=== PATIENT | male | born 1950 | race Caucasian/White ===

== ENCOUNTER 2016-09-13 12:46 | Inpatient (IN) | payer MEDICARE, OTHER ==
[~2016-09-13] VITALS: Ht 182.9 cm; Wt 79.3 kg
[2016-09-13] VITALS (10 sets, daily range): BP systolic 117–131; BP diastolic 61–78; PULSE 58–68; RESP 16–22; O2SAT 94–99
[~2016-09-13 12:46] MED LIST: ALBU6.7H INH; AMIO200T PO; CARV6.252 PO; CHOL10008 PO; FLUO20CA25 PO; FURO40TA4 PO; LISI10TA PO; POTA8TAB8 PO; PRAV40TA PO; ROPI0.5T2 PO; SYMINH INHALATION; VITA-272 PO
--- NOTE | 2016-09-13 12:49 | ED.REPORT ---
HPI-Trauma Multiple Date of Service Sep 13, 2016 ED Provider: The patient is a 65 year old male with history of end stage renal disease ( dialyzes MWF), congestive heart failure, COPD, anemia, hyperlipidemia, hypertension, and s/p pacemaker/defibrillator, who presents to the emergency department by EMS after he had a ground level fall. The patient states he was getting back into his car and felt lightheaded. The next thing he remembers is waking up on the ground with people around him. At this time he complains of lightheadedness and nausea. He is currently on Warfarin. He denies chest pain, shortness of breath, numbness, tingling, weakness, headache, vision changes, bladder/bowel incontinence. He denies history of seizures. Nursing Notes Stated Complaint: FALL Nursing Notes Reviewed: Yes Allergies: Uncoded Allergies: CHLORAPREP (Adverse Reaction, Intermediate, itching, 07/23/16) Scheduled Amiodarone (Amiodarone) 200 Mg Tablet 200 MG PO DAILY Budesonide/Formoterol 160-4.5 mcg Inh (Symbicort 160-4.5 mcg Inh) 120 Puff Inhaler 2 PUFF INHALATION BID Carvedilol (Carvedilol) 6.25 Mg Tablet 6.25 MG PO BID Cholecalciferol (Vitamin D3) (Vitamin D3) 1,000 Unit Tab.chew 1,000 UNIT PO DAILY Fluoxetine (Fluoxetine) 20 Mg Capsule 20 MG PO DAILY Furosemide (Furosemide) 40 Mg Tablet 40 MG PO DAILY Lisinopril (Lisinopril) 10 Mg Tablet 10 MG PO DAILY Potassium Chloride ER (Potassium Chloride ER) 8 Meq Tablet 8 MEQ PO DAILY TAKE WITH FOOD Pravastatin (Pravastatin) 40 Mg Tablet 40 MG PO DAILY Ropinirole (Ropinirole) 0.5 Mg Tablet 0.5 MG PO TID Vitamin D3/Vitamin K2 (Mk4) (K2 Plus D3 Tablet) 1,000 Unit-100 Mcg Tablet 1 EACH PO DAILY Scheduled PRN Albuterol Sulfate (Proventil HFA Inhaler) 6.7 Gm Hfa.aer.ad 2 PUFF INH Q4 PRN PRN For Shortness of Breath General Time Seen by Provider: 12:56 Chief Complaint Other (fall) Hx Obtained From: Patient, EMS Arrived By: Ambulance Onset Occurred: 1 - 4 hours ago Symptom Duration: Since onset Progression Since Onset: Constant Quality: Painful Severity: Current: Mild Severity: Maximum: Moderate Recent Healthcare: No recent doctor visit, No recent hospitalization Similar Sx Previous: No Past Medical History Past Medical History Chronic obstructive pulmonary disease. Nicotine dependence, active with cigarette smoking. Congestive heart failure, chronic, systolic dysfunction. Echo (04/05/12): LVEF 20-25% with severe global hypokinesis, mild to moderate mitral regurgitation and mild tricuspid regurgitation. Nonischemic cardiomyopathy Recent admit for complete heart block, now s/p AICF 11/2014 Chronic kidney disease stage 5, on hemodialysis Renal US (12/21/09): Right kidney measuring 8.3 cm with renal cortex thinning. Moderate to prominent hydronephrosis. Left kidney measuring 11.2 cm, showing no evidence of hydronephrosis or nephrolithiasis. Anemia due to renal failure. Hyperlipidemia. Hypertension. Past Surgical History AV fistula AICD Appendectomy Tonsillectomy Hydrocele repair Family History Noncontributory Smoking History Former Smoker, Smoker Current Status UNK Social History Other Social History: Local resident Ambulatory Status Independent Review of Systems Respiratory: Denies: Shortness of breath Cardiovascular: Denies: Chest pain GI: Reports: Nausea Neurologic: Reports: Change LOC, Lightheaded, Syncope, Denies: Bladder dysfunction, Bowel dysfunction, Focal weakness, Headache, Numbness Complete sys rev & neg: except as marked. Physical Exam Initial Vital Signs Vital Signs (First) Date Time Temp Pulse Resp B/P Pulse Ox O2 Delivery O2 Flow Rate FiO2 09/13/16 12:58 35.8 62 16 127/76 97 Room Air Initial VS: Reviewed Extremities: Vascular intact, Neuro intact Skin: Warm, Dry, No cyanosis Psychiatric: Mood/affect normal, Behavior normal, Normal thought content General/Constitutional: Awake, Alert, Cooperative Head / Eyes: Normocephalic, PERRL, EOMI There is a hematoma measuring about 7x7 cm about his left occipital scalp. There is an overlying abrasion with dried blood, no active bleeding. Neck: Supple, Full range of motion, No swelling, Non-tender, No midline vertebral tend Respiratory / Chest: Atraumatic, Breath sounds NL, Breath sounds = bilat, No respiratory distress, No rales, No rhonchi, No wheezing, No stridor, No chest tenderness, No chest wall deformity, No crepitus Cardiovascular: Heart rate NL, Regular rhythm, Heart sounds NL, No gallop, No murmurs, No rubs, Cap refill not delayed, Peripheral circulation NL Abdomen: Atraumatic, Soft, Non-tender, No guarding, No rebound, No distention Back: No midline vertebral tend Neurologic: Oriented X3, Speech NL, No motor deficits, No sensory deficits, Cerebellar NL, Memory NL 5/5 strength to both upper and lower extremities. No pronator drift. ENT: Airway patent, Mucous membranes moist Bite to the inside of his lip. Dried blood in mouth. No acute dental trauma. Dentures in place. Upper Extremity / MS: No deformity, Neurologic intact, Vascular intact Dialysis fistula in left forearm with a good palpable thrill. There is no overlying erythema, redness, warmth. He has a skin tear overlying his left elbow. Full range of motion. Lower Extremity / Pelvis / MS: Atraumatic, Inspection NL, Full range of motion , No swelling, Non-tender, No deformity, Neurologic intact, Vascular intact Interpretation & Diagnostics Lab Results Interpretation Result Diagram: 09/13/16 1251 09/13/16 1251 Test 09/13/16 12:51 09/13/16 13:26 White Blood Count 9.1th/mm3 (3.8-10.1) Red Blood Count 3.82mil/mm3 (4.40-5.80) Hemoglobin 14.1g/dL (13.8-17.2) Hematocrit 41.6% (41.0-50.0) Mean Corpuscular Volume 108.9fL (81-100) Mean Corpuscular Hemoglobin 36.9pg (27.0-35.0) Mean Corpuscular Hemoglobin Concent 33.9% (32.0-37.0) Red Cell Distribution Width 14.9% (12.3-15.4) Platelet Count 104bil/L (150-400) Neutrophils (%) (Auto) 76.3% (40-74) Lymphocytes (%) (Auto) 11.5% (14-46) Monocytes (%) (Auto) 7.5% (4-12) Eosinophils (%) (Auto) 3.5% (0-5) Basophils (%) (Auto) 0.9% (0-3) Prothrombin Time 27.9sec (8.1-12.5) Prothromb Time International Ratio 2.56ratio Sodium Level 134mEq/L (134-144) Potassium Level 4.5mEq/L (3.5-5.2) Chloride Level 91mEq/L (97-108) Carbon Dioxide Level 26mmol/L (18-29) Blood Urea Nitrogen 48mg/dL (8-27) Creatinine 5.35mg/dL (0.76-1.27) Estimat Glomerular Filtration Rate 11mL/min (>59) Glucose Level 80mg/dL (60-99) Calcium Level 9.6mg/dL (8.5-10.1) Magnesium Level 1.9mg/dL (1.6-2.6) Total Bilirubin 1.2mg/dL (0.0-1.2) Aspartate Amino Transf (AST/SGOT) 24U/L (0-50) Alanine Aminotransferase (ALT/SGPT) 13U/L (0-44) Alkaline Phosphatase 113U/L (25-160) Troponin T 0.080ug/L (0.0-0.011) Pro-B-Type Natriuretic Peptide 36415kt/mL (0-376) Total Protein 7.9g/dL (6.4-8.4) Albumin 4.0g/dL (3.4-5.0) Lactic Acid Level 1.1mmol/L (0.4-2.0) ECG Interpretation ECG Interpretation: Atrial sensed ventricular paced complexed at a rate of 58 bpm When compared to prior EKG taken on 12/07/2014 there are no acute changes present, he remains ventricular paced Time: 13:18 Interpreted by: ED physician X-Ray Chest Interpretation Chest Xray Interpretation: IMPRESSION: 1. Possible early right upper lobe pneumonia. 2. Moderate cardiomegaly, without pulmonary edema to suggest congestive heart failure. Dictated by: Robinson Christy M.D. on 09/13/2016 at 13:34 Interpretation / Wet Read by: Interpret - Radiologist CT Head Interpretation IMPRESSION: 1. No acute intracranial abnormalities. Mild cerebral volume loss for age. 2. Left posterior parietal scalp soft tissue swelling. 3. Scattered extracranial intravenous gas bilaterally as well as within the right cavernous sinus, presumably from intravenous access. Dictated by: Robinson Christy M.D. on 09/13/2016 at 13:52 Study: Head CT no contrast Interpretation / Wet Read by: Interpret - Radiologist CT C-Spine Interpretation IMPRESSION: 1. No acute bony injuries of the cervical and upper thoracic spine from the foramen magnum to the T4 level. 2. Scattered right supraclavicular and right neck intravenous gas, presumably from recent intravenous access. Dictated by: Robinson Christy M.D. on 09/13/2016 at 13:44 Study type: CT no contrast Interpretation / Wet Read by: Interpret - Radiologist Re-Eval/Medical Decision Med Decision/Clinical Course The patient is a 65 year old male with history of end stage renal disease ( dialyzes MWF), congestive heart failure, COPD, anemia, hyperlipidemia, hypertension, and s/p pacemaker/defibrillator, who presents to the emergency department by EMS after he had a ground level fall after syncopal event resulting in striking his head. Upon arrival the patient is afebrile stable vital signs. He has a GCS of 15 and he is answering questions appropriately. Neurologic examination is nonlateralizing. Treated with Zofran and 500 mL fluid bolus, given TDAP is superficial abrasions. CT scan of the head demonstrated no evidence of acute intracranial hemorrhage. CT scan of cervical spine tenderness. No acute fractures. Chest x-ray demonstrated possible right upper lobe pneumonia though he does not present with symptoms suggestive thereof. Otherwise he was without pneumothorax or evidence of acute cardiopulmonary process. Level for studies were reviewed as below: CBC no leukocytosis, hct 41.6, INR 2.56, lactic acid 1.1, BUN 48, creatinine 5.35 - expected given known ESRD, no significant electrolyte abnormality, troponin 0.08, BNP 30155 I am reassured at this point that the patient does not have any intracranial hemorrhage given head trauma in the setting of being therapeutic on Coumadin. That being said, he presents with a syncopal event prior to his head injury without any significant presyncopal symptoms. This is somewhat concerning for acute cardiac arrhythmia. EKG was obtained and reviewed by myself as documented above and demonstrated paced atrioventricular complexes. He does report a history of AICD and the possibility of acute cardiac process remains. Positive troponin is difficult to interpret in the setting of his underlying renal failure. The presentation is not suggestive of seizure. I do not see any signs of significant electrolyte abnormality. He is on dialysis and appears slightly dehydrated and was treated with a 500 mL saline bolus. That being said, I cannot attribute his syncopal event dehydration at this time. Patient was discussed with admitting hospitalist and admitted for further workup and management of his acute syncopal event. He was transferred in stable condition. Skin tear of left elbow was completed and sterile nonadherent dressings were placed. Source of Hx: Old records, EMS Re-Evaluation/Progress : Time of Eval: 13:45 Re-Evaluation/Progress Note: Discussed plan for admission. All questions were addressed. Consultation : Referral / Consult Name: Neda Gonzales MD Consulted With: Hospitalist Requested Call at: 13:45 Call Returned at: 14:12 Metal Sorter: Will see patient, Agrees with eval, Agrees with plan, Accepts admit Counseled Regarding: Diagnosis, Lab results, Need for admission Discharge & Departure Impression: Primary Impression: Fall Encounter type: initial encounter Qualified Code: W19.XXXA - Unspecified fall, initial encounter Additional Impressions: Syncope Syncope type: unspecified Qualified Code: R55 - Syncope and collapse End stage renal disease Elevated brain natriuretic peptide (BNP) level Elevated troponin I level Skin tear Disposition: ADMITTED TO HOSPITAL Discharge Condition All VS Reviewed: Yes Condition: Stable Referrals: [facility] (PCP) Crit Care Except Billable Proc Time Spent: 75-104 minutes Services Performed: Patient management by me, Time spent at bedside, Reviewing test results, Reviewing imaging, Discussing patient care, Documentation in record, Time with fam/surrogate Scribe Attestation Portions of this note were transcribed by Jen Newman. I, Dr. Ayala personally performed the history, physical exam and medical decision-making; I reviewed and confirmed the accuracy of the information in the transcribed note. Signed by: Marimar Caicedo, 09/12/2015 and 1435. copies to: [facility] Sherwin Ayala MD Sep 13, 2016 12:49 Jen Newman Sep 13, 2016 13:04
[2016-09-13] MEDS ORDERED: Ondansetron 2 mg/mL 2 mL Inj IVPUSH ONE (13:05)
[2016-09-13] MEDS ORDERED: 0.9% Sodium Chloride 500 ML IV ONE (13:05)
[2016-09-13 13:14] LABS: BASOPHILS % (AUTO) 0.9 % (0-3); EOSINOPHILS % (AUTO) 3.5 % (0-5); MONOCYTES % (AUTO) 7.5 % (4-12); Mean Corpuscular Hemoglobin 36.9 pg (27.0-35.0); Mean Corpuscular Volume 108.9 fL (81-100); NEUTROPHILS % (AUTO) 76.3 % (40-74); Platelet Count 104 bil/L (150-400)
[2016-09-13] MEDS ORDERED: Lidocaine-Epi-Tetracaine Solution 3 mL Syringe TOPICAL ONE (13:30)
[2016-09-13] MEDS ORDERED: TdaP Vaccine 0.5 mL Inj IM ONE (13:35)
--- NOTE | 2016-09-13 13:37 | DRSVH ---
PROCEDURE: X-RAY CHEST ONE VIEW, PORTABLE ([id number]) INDICATIONS: 65 year-old male with syncope and fall. TECHNIQUE: One view of the chest was acquired. COMPARISON: [facility], CR, XR CHEST 2VW, 12/31/2015, 12:54. [facility], CR, CHEST 2VW, 11/16/2014, 7:49. [facility], CR, CHEST 1VW (PORTABLE), 11/15/2014, 17:25. FINDINGS: Surgical changes and devices: Right chest wall dual biventricular pacer/ICD is again noted. Lungs and pleura: No pleural effusions or pneumothorax. Lungs are clear, except for patchy opacity just superior to the right minor fissure. Mediastinum: Mediastinal contours appear normal. Moderate cardiomegaly is unchanged. Bones and chest wall: No suspicious bony lesions. Overlying soft tissues appear unremarkable. IMPRESSION: 1. Possible early right upper lobe pneumonia. 2. Moderate cardiomegaly, without pulmonary edema to suggest congestive heart failure. Dictated by: Robinson Christy M.D. on 09/13/2016 at 13:34 Approved by: Robinson Christy M.D. on 09/13/2016 at 13:36
[2016-09-13 13:46] LABS: INR 2.56 ratio
--- NOTE | 2016-09-13 13:51 | DRSVH ---
PROCEDURE: CT CERVICAL SPINE WITHOUT CONTRAST ([id number]) INDICATIONS: 65-year-old male with ground level fall on Coumadin. TECHNIQUE: Noncontrast 3 mm thick sections acquired from the skull base to the T4 level. Sagittal and coronal r eformats were then constructed. For radiation dose reduction, the following was used: automated exp osure control, adjustment of mA and/or kV according to patient size. COMPARISON: None. FINDINGS: Image quality: Excellent. Bones: No fractures or dislocations. There is significant C5-C6 disc degeneration. Visualized super ior ribs are intact. Soft tissues: There is scattered intravenous gas within the right neck and supraclavicular region. P revertebral soft tissues are normal in thickness. No paravertebral hematomas. There is bilateral ca rotid bifurcation and vertebral artery atherosclerosis. No apical pneumothoraces. IMPRESSION: 1. No acute bony injuries of the cervical and upper thoracic spine from the foramen magnum to the T4 level. 2. Scattered right supraclavicular and right neck intravenous gas, presumably from recent intravenous access. Dictated by: Robinson Christy M.D. on 09/13/2016 at 13:44 Approved by: Robinson Christy M.D. on 09/13/2016 at 13:50
--- NOTE | 2016-09-13 13:57 | DRSVH ---
PROCEDURE: CT BRAIN WITHOUT CONTRAST ([id number]) INDICATIONS: 65 year-old male with head trauma on Coumadin. TECHNIQUE: Noncontrast 4.5 mm thick angled axial sections acquired from the foramen magnum to the vertex, with c oronal reformats. COMPARISON: None. FINDINGS: Image quality: Excellent. CSF spaces: Basal cisterns are patent. No extra-axial fluid collections. Ventricles are normal in size and shape. Brain: No midline shift. No intracranial masses or hemorrhage. There is mild cerebral volume loss for age. Bo-white matter interface is normal. There is intracranial internal carotid artery atheros clerosis. Skull and face: Calvarium and visualized facial bones are intact, without suspicious lesions. Multif ocal extracranial soft tissue gas is noted. There is left posterior parietal scalp soft tissue swelli ng. Sinuses: Visualized sinuses and mastoids are clear. IMPRESSION: 1. No acute intracranial abnormalities. Mild cerebral volume loss for age. 2. Left posterior parietal scalp soft tissue swelling. 3. Scattered extracranial intravenous gas bilaterally as well as within the right cavernous sinus, pr esumably from intravenous access. Dictated by: Robinson Christy M.D. on 09/13/2016 at 13:52 Approved by: Robinson Christy M.D. on 09/13/2016 at 13:56
[2016-09-13 14:00] LABS: Magnesium 1.9 mg/dL (1.6-2.6)
[2016-09-13 14:14] LABS: TROPONIN T 0.08 ug/L (0.0-0.011)
--- NOTE | 2016-09-13 14:38 | DRSVH ---
PROCEDURE: X-RAY LEFT SHOULDER, MINIMUM TWO VIEWS ([id number]) INDICATIONS: 65 year-old male with left shoulder pain after ground level fall. TECHNIQUE: 2 views of the shoulder were acquired. COMPARISON: None. FINDINGS: Bones: No fractures or dislocations. There is acromioclavicular joint degeneration. No suspicious b jazmyn lesions. Visualized ribs appear intact. Soft tissues: No suspicious soft tissue calcifications. IMPRESSION: No acute bony injuries of the left shoulder. Dictated by: Robinson Christy M.D. on 09/13/2016 at 14:36 Approved by: Robinson Christy M.D. on 09/13/2016 at 14:37
--- NOTE | 2016-09-13 14:45 | PCM.HPMED ---
Subjective Date of Service Sep 13, 2016 Primary Provider: Admitting Physician: Primary Care Physician: [facility] Attending Physician: Chief Complaint: Past out HISTORY was OBTAINED FROM PATIENT / MEDITECH NOTES History of present illness 65-year-old male, hemodialysis MWF/pacer/ICD/Coumadin use, was walking to his car, lightheaded, then he woke up from the ground with people surrounding him. no prior seizure/incontinence. last syncopal episode 05/09/2016 determined to have ICD fired at that time w/ change in coreg w/ Dr. Velez. He Saw Rosie 2 weeks ago w new coumadin for Afib. if he misses HD, he gets pulmonary fluid overload. he is on amoxicillin x 2nd 10day course -started 1-2 days ago, per license distributor s/ p toe amputation 1 month ago. in the ER 127/76, 62, 97% room air, T, 35.8 , weight 80.45, 500 mL saline, c/o nausea/lightheadness Review of Systems - none of the following - F/C/sick contact // SMITH /paresthesia / sob / cough / cp / acid reflux / n/v/diarrhea / / change in voiding(baseline minimal output) / yeast infections / rash ambulates Intermittent leg edema bruising sinus congestion FAMILY HX no MD SOCIAL HX smoker MEDICATIONS Scheduled Amiodarone (Amiodarone) 200 Mg Tablet 200 MG PO DAILY Budesonide/Formoterol 160-4.5 mcg Inh (Symbicort 160-4.5 mcg Inh) 120 Puff Inhaler 2 PUFF INHALATION BID Carvedilol (Carvedilol) 6.25 Mg Tablet 6.25 MG PO BID Cholecalciferol (Vitamin D3) (Vitamin D3) 1,000 Unit Tab.chew 1,000 UNIT PO DAILY Fluoxetine (Fluoxetine) 20 Mg Capsule 20 MG PO DAILY Furosemide (Furosemide) 40 Mg Tablet 40 MG PO DAILY Lisinopril (Lisinopril) 10 Mg Tablet 10 MG PO DAILY Potassium Chloride ER (Potassium Chloride ER) 8 Meq Tablet 8 MEQ PO DAILY TAKE WITH FOOD Pravastatin (Pravastatin) 40 Mg Tablet 40 MG PO DAILY Ropinirole (Ropinirole) 0.5 Mg Tablet 0.5 MG PO TID Vitamin D3/Vitamin K2 (Mk4) (K2 Plus D3 Tablet) 1,000 Unit-100 Mcg Tablet 1 EACH PO DAILY coumadin Scheduled PRN Albuterol Sulfate (Proventil HFA Inhaler) 6.7 Gm Hfa.aer.ad 2 PUFF INH Q4 PRN PRN For Shortness of Breath Past Medical/Surgical HX Sinus congestion Dizziness End-stage renal disease CHF, echo 2015 EF 20%, biventricular AICD 4 2014, hypertension, dyslipidemia, with severe global hypokinesis, mild to moderate mitral regurgitation and mild tricuspid regurgitation. Nonischemic cardiomyopathy Distal abdominal aortic aneurysm since 2009 COPD/ pulmonary embolism GERD UTI/BPH anemia Arthritis/osteomyelitis Depression/anxiety Appendectomy/hydrocelectomy/tonsillectomy/amputation toe AVfistula Allergies Coded Allergies: chlorhexidine (Verified Allergy, Mild, ITCHING, 09/13/16) PMH Social History Hx Alcohol Use: Yes (seldom) Hx Substance Use: No Hx Tobacco Use: Yes Smoking Status: Former Smoker, Smoker Current Status UNK Exam Vital Signs Vital Sign - Last Date Time Temp Pulse Resp B/P Pulse Ox O2 Delivery O2 Flow Rate FiO2 09/13/16 13:46 58 17 117/73 97 Room Air 09/13/16 12:58 35.8 Lab and Diagnostics Labs Exam on admission on NAD A and O x 3 mood affect WNL NC/AT no icterus no injected eyes EOMI PERRL /no pharyngeal lesions/ no oral lesions / hearing intact Supple neck CTAB equal chest rise / no accessory muscle use / speaks in full sentences / no rrw RRR S1 S2 / no mrg / 2+ radial pulses Soft nt nd + BS no hepatosplenomegaly No edema no cyanosis no ecchymosis of lower extremities No rash / no jaundice MAEmultiple areas of excoritaiont from fall left AV fistual EKG asensed v paced 58 <<< 12/2014 HR 82 Trop 0.08 BNP 81276 ( >60k 01/2016) UA pending LFT normla INR 2.6 Imaging PROCEDURE: CT BRAIN WITHOUT CONTRAST ([id number]) INDICATIONS: 65 year-old male with head trauma on Coumadin. TECHNIQUE: Noncontrast 4.5 mm thick angled axial sections acquired from the foramen magnum to the vertex, with coronal reformats. COMPARISON: None. FINDINGS: Image quality: Excellent. CSF spaces: Basal cisterns are patent. No extra-axial fluid collections. Ventricles are normal in size and shape. Brain: No midline shift. No intracranial masses or hemorrhage. There is mild cerebral volume loss for age. Bo-white matter interface is normal. There is intracranial internal carotid artery atherosclerosis. Skull and face: Calvarium and visualized facial bones are intact, without suspicious lesions. Multifocal extracranial soft tissue gas is noted. There is left posterior parietal scalp soft tissue swelling. Sinuses: Visualized sinuses and mastoids are clear. IMPRESSION: 1. No acute intracranial abnormalities. Mild cerebral volume loss for age. 2. Left posterior parietal scalp soft tissue swelling. 3. Scattered extracranial intravenous gas bilaterally as well as within the right cavernous sinus, presumably from intravenous access. PROCEDURE: CT CERVICAL SPINE WITHOUT CONTRAST ([id number]) INDICATIONS: 65-year-old male with ground level fall on Coumadin. TECHNIQUE: Noncontrast 3 mm thick sections acquired from the skull base to the T4 level. Sagittal and coronal reformats were then constructed. For radiation dose reduction, the following was used: automated exposure control, adjustment of mA and/or kV according to patient size. COMPARISON: None. FINDINGS: Image quality: Excellent. Bones: No fractures or dislocations. There is significant C5-C6 disc degeneration. Visualized superior ribs are intact. Soft tissues: There is scattered intravenous gas within the right neck and supraclavicular region. Prevertebral soft tissues are normal in thickness. No paravertebral hematomas. There is bilateral carotid bifurcation and vertebral artery atherosclerosis. No apical pneumothoraces. IMPRESSION: 1. No acute bony injuries of the cervical and upper thoracic spine from the foramen magnum to the T4 level. 2. Scattered right supraclavicular and right neck intravenous gas, presumably from recent intravenous access. PROCEDURE: X-RAY CHEST ONE VIEW, PORTABLE ([id number]) INDICATIONS: 65 year-old male with syncope and fall. TECHNIQUE: One view of the chest was acquired. COMPARISON: [facility], CR, XR CHEST 2VW, 12/31/2015, 12:54. [facility], CR, CHEST 2VW, 11/16/2014, 7:49. [facility] , , CHEST 1VW (PORTABLE), 11/15/2014, 17:25. FINDINGS: Surgical changes and devices: Right chest wall dual biventricular pacer/ICD is again noted. Lungs and pleura: No pleural effusions or pneumothorax. Lungs are clear, except for patchy opacity just superior to the right minor fissure. Mediastinum: Mediastinal contours appear normal. Moderate cardiomegaly is unchanged. Bones and chest wall: No suspicious bony lesions. Overlying soft tissues appear unremarkable. IMPRESSION: 1. Possible early right upper lobe pneumonia. 2. Moderate cardiomegaly, without pulmonary edema to suggest congestive heart failure. Result Diagram: 09/13/16 1251 09/13/16 1251 Assessment & Plan Active issues and reason for admission Syncope, found down, left shift, previously assoicated w/ AICD firing -- tsh.cortisol pending -- Dr. Francois - AICD rep to interogate -- consider echo, pending orthostatics, serial trop --UA pending ESRD --pending HD tomorrow, placed on Dr. Cornelius's list macrocytosis --monitor CXR RUL finding, treating as CAP along w/ toe preventive antibiotic coverage --IS/duoneb x 1 day scheduled rocephine instead of augmentin --add flonase --pending nebulzier for home [facility] no clinical significant of extra cranial/neck air on CT, discussed w/ radiologist Chronic issues known prior to admission, present on admission chronic afib Sinus congestion Dizziness End-stage renal disease CHF, echo 6 2015 EF 20%, biventricular AICD 4 2014, hypertension, dyslipidemia, with severe global hypokinesis, mild to moderate mitral regurgitation and mild tricuspid regurgitation. Nonischemic cardiomyopathy Distal abdominal aortic aneurysm since 2009 COPD/ pulmonary embolism - patient denies ever having PE/DVT GERD UTI/BPH Arthritis/osteomyelitis Depression/anxiety Appendectomy/hydrocelectomy/tonsillectomy/amputation toe AVfistula anemia --INR, coumadin per pharm Diet cardiac DVT prophylaxis coumadin Code full Disposition OBS status Assessment and plan were discussed with patient Neda Gonzales MD Sep 13, 2016 14:45
[2016-09-13] MEDS ORDERED: Albuterol-Ipratropium 3 mL Inhalation Solution NEB PRN (15:15)
--- NOTE | 2016-09-13 18:17 | NUR ---
Admit: Patient [place] [facility] [place] @ approx 1630. Patient ambulated to bed. Unsteady gait and weak. Patient alert and oriented. Denies pain. Telemetry placed, surveillance system monitor notified, patient is V Paced in the 60s. Oriented to room and call light system. Bed in low and locked position, bed rails up x 2, yellow non-skid socks on. Encouraged patient to call for assistance OOB. Patient agreed. Medication Reconciliation not completed as patient does not remember all of medications and dosages. [facility] Asked Policy Writer Sales to fax request to get list of current medications from [facility]. During admit patient states he had Advance Directive however there is no one that can bring in a copy.
[2016-09-13] MEDS ORDERED: Amiodarone 150 mg/100 mL D5W 150 MG in IV Premix 1 EACH IV ONE (19:45)
--- NOTE | 2016-09-13 20:09 | PCM.PHAPRO ---
Progress Requesting Provider: Tyesha Francois MD Past out HISTORY was OBTAINED FROM PATIENT / MEDITECH NOTES History of present illness 65-year-old male, hemodialysis MWF/pacer/ICD/Coumadin use, was walking to his car, lightheaded, then he woke up from the ground with people surrounding him. no prior seizure/incontinence. last syncopal episode 05/09/2016 determined to have ICD fired at that time w/ change in coreg w/ Dr. Velez. He Saw Rosie 2 weeks ago w new coumadin for Afib. if he misses HD, he gets pulmonary fluid overload. 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 in the ER 127/76, 62, 97% room air, T, 35.8 , weight 80.45, 500 mL saline, c/o nausea/lightheadness Review of Systems - none of the following - F/C/sick contact // SMITH /paresthesia / sob / cough / cp / acid reflux / n/v/diarrhea / / change in voiding(baseline minimal output) / yeast infections / rash ambulates Intermittent leg edema bruising sinus congestion FAMILY HX no CA SOCIAL HX smoker MEDICATIONS Scheduled Amiodarone (Amiodarone) 200 Mg Tablet 200 MG PO DAILY Budesonide/Formoterol 160-4.5 mcg Inh (Symbicort 160-4.5 mcg Inh) 120 Puff Inhaler 2 PUFF INHALATION BID Carvedilol (Carvedilol) 6.25 Mg Tablet 6.25 MG PO BID Cholecalciferol (Vitamin D3) (Vitamin D3) 1,000 Unit Tab.chew 1,000 UNIT PO DAILY Fluoxetine (Fluoxetine) 20 Mg Capsule 20 MG PO DAILY Furosemide (Furosemide) 40 Mg Tablet 40 MG PO DAILY Lisinopril (Lisinopril) 10 Mg Tablet 10 MG PO DAILY Potassium Chloride ER (Potassium Chloride ER) 8 Meq Tablet 8 MEQ PO DAILY TAKE WITH FOOD Pravastatin (Pravastatin) 40 Mg Tablet 40 MG PO DAILY Ropinirole (Ropinirole) 0.5 Mg Tablet 0.5 MG PO TID Vitamin D3/Vitamin K2 (Mk4) (K2 Plus D3 Tablet) 1,000 Unit-100 Mcg Tablet 1 EACH PO DAILY coumadin Scheduled PRN Albuterol Sulfate (Proventil HFA Inhaler) 6.7 Gm Hfa.aer.ad 2 PUFF INH Q4 PRN PRN For Shortness of Breath Past Medical/Surgical HX Sinus congestion Dizziness End-stage renal disease CHF, echo 6 2015 EF 20%, biventricular AICD 4 2014, hypertension, dyslipidemia, with severe global hypokinesis, mild to moderate mitral regurgitation and mild tricuspid regurgitation. Nonischemic cardiomyopathy Distal abdominal aortic aneurysm since 2009 COPD/ pulmonary embolism GERD UTI/BPH anemia Arthritis/osteomyelitis Depression/anxiety Appendectomy/hydrocelectomy/tonsillectomy/amputation toe AVfistula Warfarin dosing per pharmacy for A-Fib with goal INR 2-3. INR today is 2.56 I was unable to determine the patient's home warfarin dose from med rec/MD dictation or the external med viewer. The [facility] pharmacist tomorrow will contact the patient's pharmacy for the current dose. Currently the patient is within goal range. Jackie Sagastume [facility] Sep 13, 2016 20:09
[2016-09-13] MEDS ORDERED: Furosemide 10 mg/mL 4 mL Inj IVPUSH SCH (20:10)
[2016-09-13 20:33] LABS: APPEARANCE,URINE CLEAR (CLEAR,HAZY); COLOR,URINE DARK YELLOW (YELLOW)
[2016-09-13 20:34] LABS: OCCULT BLOOD,URINE SMALL (NEGATIVE); UROBILINOGEN,URINE NORMAL (NORMAL)
--- NOTE | 2016-09-13 20:34 | PROCED ---
[address] [address] PROCEDURE NOTE PATIENT: DANISHA BAI : 1950 MR#: [id number] ADMIT: 09/13/2016 JOB ID: [id number] DATE OF SERVICE: 09/13/2016 PREOPERATIVE DIAGNOSIS(ES): POSTOPERATIVE DIAGNOSIS(ES): SURGEON: INDICATION OF PROCEDURE: Syncope. DEVICE CHECK: This is a Medtronic dual-chamber pacemaker. It was most recently interrogated May 22, 2016. The remaining longevity is 16 months. In terms of the reason for his syncope, he had ventricular tachycardia today. This occurred at 1:13 p.m. He had ventricular tachycardia with a rate of 162 beats per minute. He got one cycle of antitachycardia pacing with no improvement and then he received 35 joule shocks and then normal sinus rhythm was restored. Of note, immediately prior to developing ventricular tachycardias he was actually in atrial flutter with a cycle length of about 350 msec and RVR. Of note, he had a prior episode of ventricular tachycardia within the last year ; it occurred on June 29, 2016. It occurred at noon. It started out as atrial tachycardia and then subsequently he developed ventricular tachycardia. He received a single burst of antitachycardia pacing, and then what happened is atrial tachycardia with Bi-V pacing was restored. He did not require shock. He is bi-V paced 99.7% of the time. He is A paced 12.7% of the time. Since counters were last cleared, he had paroxysmal AFib. He actually had 283 episodes of atrial fibrillation or atrial tachycardia. This whole situation started in mid June and he says that he had some financial problems and could not really take his medications. His counters were last cleared May 22, 2016. He had two episodes that fell into VF zone and were treated, and he had four episodes that were nonsustained ventricular tachycardia and he had 283 episodes that fell into the atrial tachycardia zone. Rate during atrial fibrillation has been mostly controlled in the 80 beats per minute range. In terms of fluid balance, he really had some serious fluid buildup starting in April. It comes in waves and right now he is having a serious issue with his volume status. Ventricular rate during AFib since last session has been in the 50s for the most part and histogram demonstrates that the rate is generally controlled. In terms of tachy therapy, he has a monitoring zone for rates 150 up to 171 beats per minute and VF zone for rate 171 and faster. He gets a single ATP during charging and 635 joule shocks. In terms of juan parameters, his lower rate limit is 50 beats per minute, upper tracking rate 130 beats per minute, upper sensor rate 120 beats per minute. His output is programmed adaptively and I think it eating at his battery because right now the output at 5 V at 1 msec on the RV lead and I will be testing that one more time. I tested his RV lead and his capture threshold was 0.75 V at 0.5 msec, but when he briefly lost capture he actually developed brief episode of loss of consciousness. At this point capture threshold testing was aborted. I will enlist the support of [employer] to do further capture threshold testing in am. FORTINO
--- NOTE | 2016-09-13 21:05 | CONS ---
[address] [address] CONSULTATION REPORT PATIENT: DANISHA BAI : 1950 MR#: [id number] ADMIT: 09/13/2016 JOB ID: [id number] DATE OF SERVICE: 09/13/2016 CHIEF COMPLAINT: Syncope. HISTORY OF PRESENT ILLNESS: The patient is a 65-year-old man with cardiomyopathy. He was doing well this morning. He went to the bank to get some money and he was getting into the car when the next thing he knew, he woke up on the ground with people standing around him and asking him if he needed any help. He had no awareness of the episode coming on. He feels back to normal. He is not sure whether his device fire. I was consulted by the hospitalist physician to perform device interrogation. PAST MEDICAL HISTORY: 1. Nonischemic cardiomyopathy status post Medtronic brand [place] ICD implanted in November 2014. This was diagnosed in 2009. At the time of device implant, his EF was about 15%. More recent echocardiogram performed January 23, 2016, showed that EF is still less than 20%. He has mildly dilated RV and estimated pulmonary artery pressure is 14 mmHg, right atrial pressure of 15 mmHg. Right ventricular systolic pressure is estimated at 41 mmHg. Both atria are severely dilated. There is moderate to severe tricuspid regurgitation, mild to moderate mitral regurgitation. 2. Old left bundle-branch block. 3. COPD. 4. History of smoking in the past. He quit in April 2014. 5. Stage 5 chronic kidney disease on hemodialysis, April 2015. 6. Right-sided hydronephrosis. And paper Bi-Flex of about cardiomyopathy and sick was diagnosed in 2009. At the time of device implant. His EF was about 15%. More recent echocardiogram performed January 23, 2016, showed on the rate is better assess EF is still less than 20%. He has mildly dilated RV and estimated pulmonary artery systolic pressure is 14 mmHg assuming right atrial pressure of 15 mmHg. A straight right ventricular systolic pressure is estimated at 41 mmHg and both atria are severely dilated. There is moderate to severe tricuspid regurgitation. Mild to moderate mitral regurgitation. 7. History of complete heart block status post temporary pacemaker implanted November 09, 2014. FAMILY HISTORY: Mother had lupus. No family history of congestive heart disease or conduction system abnormalities. No family history of sudden . SOCIAL HISTORY: She is independent. Her son and gcpftdaa-ym-ati reside in [place]. She is a former smoker. ALLERGIES: No known drug allergies. ROS: no fever, chset pain, cough, brbpr, hematurea, joint pains. + depression; no headache, no rash no lymphadenopathy. otherwise 10 point ROS is negative HOME MEDICATIONS: Include: 1. Pravastatin 40 mg daily. 2. Lisinopril 10 mg daily. 3. Carvedilol 6.25 mg twice a day. 4. Amiodarone 200 mg daily. 5. Albuterol metered dose inhaler. 6. Ropinirole 0.5 mg 3 times a day. 7. 20 mg daily. 8. Lasix 40 mg daily. 9. Potassium chloride 8 mEq daily. PHYSICAL EXAMINATION: Temperature 35.8, pulse 58, blood pressure 117/73 with satting 97% on room air. ASSESSMENT AND PLAN: This is a 65-year-old man with a syncopal event. He is bi-V paced. He has a Medtronic device. His labs show no evidence of anemia but MCV is quite big and it raises a question whether there is consumption of alcohol going on. His platelet count is coming down, was 198 before, now it is 104. Labs show creatinine of 5.3, normal potassium, normal magnesium. Troponin T was most recently 0.08 but difficult to interpret in light of renal insufficiency. His TSH has not been checked since 2013 as far as I can tell. The plan for this patient is to undergo device interrogation and I will make more recommendations at that time. Right now, I think it is reasonable to continue his medications. Thank you very much for the opportunity to evaluate him. FORTINO
[2016-09-13] MEDS ORDERED: IV Premix 1 EACH IV ONE (21:12)
[2016-09-13] MEDS ORDERED: Amiodarone 360 mg/200 mL D5W Premix IV ONE (21:12)
[2016-09-13] MEDS: Albuterol-Ipratropium 3 mL Inhalation Solution NEB SCH (21:30)
[2016-09-13] MEDS: Amiodarone 360 mg/200 mL D5W 360 MG, Filter, Taxol 14256-28 1 EACH in IV Premix 1 EACH IV SCH (21:39)
[2016-09-13] MEDS ORDERED: Ondansetron 2 mg/mL 2 mL Inj IVPUSH PRN ×2 (23:25→23:32)
[2016-09-13] MEDS ORDERED: cefTRIAXone Inj 1,000 MG in Dextrose 5% Minibag Plus 50 ML IV ONE (23:25)
[2016-09-13] MEDS ORDERED: Pantoprazole 4 mg/mL 10 mL Inj IVPUSH ONE (23:30)
[2016-09-14] VITALS (13 sets, daily range): BP systolic 113–130; BP diastolic 61–75; PULSE 56–72; RESP 16–20; O2SAT 95–97
[2016-09-14] MEDS ORDERED: Amiodarone 360 mg/200 mL D5W Premix IV ONE ×2 (03:43→15:38)
[2016-09-14] MEDS ORDERED: IV Premix 1 EACH IV ONE ×2 (03:43→15:38)
[2016-09-14] MEDS: Amiodarone 360 mg/200 mL D5W 360 MG, Filter, Taxol 14256-28 1 EACH in IV Premix 1 EACH IV SCH (03:47)
[2016-09-14 03:58] LABS: Mean Corpuscular Hemoglobin 36.1 pg (27.0-35.0); Mean Corpuscular Volume 108.9 fL (81-100)
--- NOTE | 2016-09-14 04:02 | NUR ---
Transfer/Cardiac/Nausea: Assumed care of pt. at 2119, report received from Marialuisa Mckeon RN. Pt. transferred to room 2028 via bed, arrived at 2124. Telemetry V-Paced, HR: 60's. VSS. No overt signs or symptoms of distress. Amiodarone gtt started per protocol, pt. tolerating well. Denies pain. Denies SOB. Pt. complained of nausea once during shift with retching, physician notified of findings, orders received for Zofran. 8mg Zofran administered, shortly thereafter pt. denied nausea. No further complaints of nausea during shift.
[2016-09-14 04:04] LABS: INR 3.1 ratio
[2016-09-14 04:26] LABS: Magnesium 1.8 mg/dL (1.6-2.6)
[2016-09-14 04:33] LABS: TROPONIN T 0.07 ug/L (0.0-0.011)
[2016-09-14] MEDS: Albuterol-Ipratropium 3 mL Inhalation Solution NEB SCH ×5 (06:30→20:59)
[2016-09-14] MEDS ORDERED: cefTRIAXone Inj 2,000 MG in Dextrose 5% Minibag Plus 50 ML IV SCH ×2 (08:30→21:00)
[2016-09-14] MEDS: Pantoprazole 20 mg ER24 Tablet PO SCH (09:48)
--- NOTE | 2016-09-14 10:31 | PCM.PNMED ---
Subjective Date of Service Sep 14, 2016 Subjective No chest pain, some cough. Some rhinorrhea. No orthopnea. No edema. No N,V,D. No clear defibrillations of ICD. Tele is negative for VT. No edema. Exam Vital Signs Vital Sign - Last Date Time Temp Pulse Resp B/P Pulse Ox O2 Delivery O2 Flow Rate FiO2 09/14/16 07:43 62 16 95 Room Air 09/14/16 07:25 124/68 09/14/16 07:24 36.3 Intake and Output 09/13/16 09/13/16 09/14/16 Cumulative From/Thru 15:00 23:00 07:00 09/13/16 12:58 - 09/14/16 06:10 Intake Total 500 ml 225 ml 582 ml 1307 ml Output Total 30 ml 0 ml 30 ml Balance 500 ml 195 ml 582 ml 1277 ml Intake Oral 225 ml 200 ml 425 ml IV Total 500 ml 382 ml 882 ml Output Urine Total 30 ml 0 ml 30 ml # Bowel Movements 1 1 Exam Alert and oriented times 3, Anicteric sclera fluent speech. Lungs clear CV RRR, no murmur Abdomen soft, NT No edema No skin rash. IVs and Medications Medications Reviewed: Medications were reviewed in detail Lab and Diagnostics Result Diagram: 09/14/1633909/14/16 034 Assessment & Plan 1. Syncope, cardiology to check BiV/ICD today. 2. Possible VT. Amiodarone per cardiology. 3. ESRD -Needs HD M,W,F. Notify renal 4. macrocytosis --monitor 5. CAP (pneumonia) change to PO doxycycline 6. chronic afib 7. Chronic systolic heart failure. 2016 EF 20%, biventricular AICD 4 2014, Nonischemic cardiomyopathy 8. Distal abdominal aortic aneurysm since 2009 9. COPD, chronic and compensated. Other chronic issues: GERD UTI/BPH Arthritis/osteomyelitis Depression/anxiety Appendectomy/hydrocelectomy/tonsillectomy/amputation toe AVfistula anemia Diet cardiac DVT prophylaxis coumadin Code full Disposition OBS status Assessment and plan were discussed with patient Pain Evaluation: Adequate Pain Control Resuscitation Status: CPR: Attempt Resuscitation Time spent 30 minutes Shin Walker MD Sep 14, 2016 10:31
--- NOTE | 2016-09-14 11:26 | NUR ---
Pain c/o left side pain, of shoulder mainly. prn tylenol given. will continue to monitor.
--- NOTE | 2016-09-14 11:30 | DRSVH ---
[facility] [address] [address] Echocardiogram Report Name: DANISHA BAI WStudy Dilip te: 09/14/2016 Height: 72 in Hospital Exam Location: [facility] Weight: 178 lb Gender: Male BSA: 2.0 m2 : 1950 Age: 65 yrs BP: 124/68 mmHg Reason For Study: SYNCOPE Ordering Physician: HOSPITALIST SVerformed By: Inder Johansen Referring Physician: [facility] Interpretation Summary 1) Severely dilated left ventricle with severely reduced systolic function (EF 20-25%). 2) Global hypokinesis but the apical third appears akinetic. 3) Mildly dilated right ventricle with mildly reduced function.Pacemaker lead visualized in the right ventricle. 4) Severe biatrial enlargement. 5) Moderate mitral regurgitatoin present. 6) Moderate to severe tricuspid regurgitation present. 7) Elevated right sided and left sided fillling pressures. 8) Mild abdominal ascites noted. 9) Compared to the Echo done 01/23/2016, no significant change. Procedure: A two-dimensional transthoracic echocardiogram with color flow and Doppler was performed. The study quality was technically good. Comparison is made with the echocardiogram of 01/23/16. The patient has a paced rhythm. Left Ventricle: There is normal left ventricular wall thickness. The left ventricle is severely dilated. There is no thrombus. The ejection fraction is estimated to be 20-25%. Global hypokinesis but the apical third appears akinetic. Right Ventricle: The right ventricle is mildly dilated. There is a pacemaker lead in the right ventricle. Right ventricular systolic function is mildly reduced. Atria: Both atria are severely dilated. The interatrial septum is intact with no evidence for an atrial septal defect. Mitral Valve: The mitral valve is normal in structure and function. There is moderate mitral regurgitation. Aortic Valve: The aortic valve is trileaflet. The aortic valve is mildly calcified. The aortic valve opens well. There is no hemodynamically significant valvular aortic stenosis. No aortic regurgitation is present. Tricuspid Valve: The tricuspid annulus is dilated. The tricuspid valve leaflets are thin and pliable. There is moderate to severe tricuspid regurgitation. The right ventricular systolic pressure is estimated at 38 mmHg assuming a right atrial pressure of 15 mm Hg. Pulmonic Valve: The pulmonic valve is normal in structure and function. There is trace pulmonic regurgitation. Great Vessels: The aortic root is normal size. The ascending aorta is at the upper limits of normal in size. The pulmonary artery is normal size. The IVC is dilated (diameter is greater than 2.1 cm) and it collapses less than 50% with a sniff. This suggests a high right atrial pressure of 15 mm Hg. Pericardium/ Pleura There is no pericardial effusion. There is a small left -sided pleural effusion. Incidental finding of mild abdominal ascites is noted. MMode/2D Measurements & Calculations LVIDd: 6.8 cm LA dimension: 5.0 cm RA long axis: 6.5 cm Ao root diam LVIDs: 5.7 cm FS: 16.2 % LA A2 area: 31.3 cm RA area: 38.8 cm Aortic Jxn: 2.8 cm EPSS: 2.2 cm LA A4 area: 29.1 cm RA vol: 198.2 ml asc Aorta Diam IVSd: 0.98 cm LA length (vol) RA : 97.8 ml/m2 LVPWd: 0.94 cm Ao Arch Diam (Prox LA vol: 113.7 ml Trans): 2.6 cm LA vol index IVC diam: 2.8 cm EDV(MOD-sp2) LV ellsi. diameter/BSA LV sys. diameter/BSA RVD1 (basal) : 184.5 ml (cm/m^2): 3.4 (cm/m^2): 2.8 : 5.5 cm RVD2 (mid) : 4.1 cm Doppler Measurements & Calculations Ao V2 max MV E max cong MV E/A: 50.7 TR max cong : 107.3 cm/sec : 92.4 cm/sec Med Peak E' Cong : 238.8 cm/sec Ao max PG MV A max cong TR max PG : 4.6 mmHg : 1.8 cm/sec E/E' med: 48.8 : 22.8 mmHg Ao mean PG Lat Peak E' Cong PA V2 max : 2.4 mmHg : 71.2 cm/sec E/E' lat: 20.8 PA mean PG E/e' average: 34.8 : 0.93 mmHg PA Accel Time : 0.09 sec MV dec time Ao V2 mean PA V2 mean : 0.17 sec : 73.2 cm/sec : 45.3 cm/sec Ao V2 VTI: 21.9 cm PA pr(Accel) : 36.6 mmHg Reading Physician:11:29 AM
--- NOTE | 2016-09-14 13:45 | NUR ---
Wound Care [facility] Received wound care eval order for skin tear to left elbow and left 2nd toe amputation site. Patient with skin tear following fall. Patient also noted with hematoma to posterior head and left shoulder with no open areas noted. Skin was approximated well to left elbow skin tear. Cleaned with NS, patted dry. Entire wound area measures 4cm L x 4.2cm W x 0.1cm D with some intact skin that has been replaced, and otherwise 100% red base. No erythema noted and minimal bloody drainage. Covered with adaptic and Mepilex. Patient reports distal left 2nd toe amputation approx 2 weeks ago and changing dressing daily at home. Wound with scant yellow serous drainage noted. Cleaned with NS, patted dry. Wound measures 0.3cmL x 0.4cmW x 0.1cmD with 100% brown slough. Dressed with small piece of Mepilex and hypafix tape. Applied moisturizing cream to dry skin on feet. Nursing to change dressing to foot daily and elbow every 48 hours and as needed for soiling or bleeding. Wound care to follow as needed.
--- NOTE | 2016-09-14 14:39 | NUR ---
To MOC/HD pt ordered for HD. pt transported via bed to room 243-2. vss. IVF infusing. electrical power station technician informed. report given to ALEX Tate.
--- NOTE | 2016-09-14 14:47 | PCM.PHAPRO ---
Progress Past out HISTORY was OBTAINED FROM PATIENT / MEDITECH NOTES History of present illness 65-year-old male, hemodialysis MWF/pacer/ICD/Coumadin use, was walking to his car, lightheaded, then he woke up from the ground with people surrounding him. no prior seizure/incontinence. last syncopal episode 05/09/2016 determined to have ICD fired at that time w/ change in coreg w/ Dr. Velez. He Saw Rosie 2 weeks ago w new coumadin for Afib. if he misses HD, he gets pulmonary fluid overload. 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 in the ER 127/76, 62, 97% room air, T, 35.8 , weight 80.45, 500 mL saline, c/o nausea/lightheadness Review of Systems - none of the following - F/C/sick contact // SMITH /paresthesia / sob / cough / cp / acid reflux / n/v/diarrhea / / change in voiding(baseline minimal output) / yeast infections / rash ambulates Intermittent leg edema bruising sinus congestion FAMILY HX no DE SOCIAL HX smoker MEDICATIONS Scheduled Amiodarone (Amiodarone) 200 Mg Tablet 200 MG PO DAILY Budesonide/Formoterol 160-4.5 mcg Inh (Symbicort 160-4.5 mcg Inh) 120 Puff Inhaler 2 PUFF INHALATION BID Carvedilol (Carvedilol) 6.25 Mg Tablet 6.25 MG PO BID Cholecalciferol (Vitamin D3) (Vitamin D3) 1,000 Unit Tab.chew 1,000 UNIT PO DAILY Fluoxetine (Fluoxetine) 20 Mg Capsule 20 MG PO DAILY Furosemide (Furosemide) 40 Mg Tablet 40 MG PO DAILY Lisinopril (Lisinopril) 10 Mg Tablet 10 MG PO DAILY Potassium Chloride ER (Potassium Chloride ER) 8 Meq Tablet 8 MEQ PO DAILY TAKE WITH FOOD Pravastatin (Pravastatin) 40 Mg Tablet 40 MG PO DAILY Ropinirole (Ropinirole) 0.5 Mg Tablet 0.5 MG PO TID Vitamin D3/Vitamin K2 (Mk4) (K2 Plus D3 Tablet) 1,000 Unit-100 Mcg Tablet 1 EACH PO DAILY coumadin Scheduled PRN Albuterol Sulfate (Proventil HFA Inhaler) 6.7 Gm Hfa.aer.ad 2 PUFF INH Q4 PRN PRN For Shortness of Breath Past Medical/Surgical HX Sinus congestion Dizziness End-stage renal disease CHF, echo 2015 EF 20%, biventricular AICD 4 2014, hypertension, dyslipidemia, with severe global hypokinesis, mild to moderate mitral regurgitation and mild tricuspid regurgitation. Nonischemic cardiomyopathy Distal abdominal aortic aneurysm since 2009 COPD/ pulmonary embolism GERD UTI/BPH anemia Arthritis/osteomyelitis Depression/anxiety Appendectomy/hydrocelectomy/tonsillectomy/amputation toe AVfistula Warfarin Management per Pharmacy: Age: 65 yo Weight: 79 kg Home Dose: 1.25 mg Tues/Fri and 2.5 mg all other days Indication: Stroke prophylaxis as patient has atrial fibrillation ([id number]- Vasc = 2) Goal INR: 2-3 Labs: Hgb/Hct: 13.3/40.4 Plt: 123 INR: 3.10 Drug Interactions: Amiodorone (major), doxycyline (min-mod) Recommendation: Hold warfarin tonight for supratherapeutic INR Pharmacy to continue to monitor and adjust dose as needed. Thank You, Pilar Stafford, PharmD. Pilar Stafford Sep 14, 2016 14:47
--- NOTE | 2016-09-14 16:05 | PCM.PNCARD ---
Subjective Date of service Sep 14, 2016 Chief Complaint Syncope from VT History of Present Illness 65 yo M h/o HFrEF from non-ischemic cardiomyopathy and complete heart block s/p BiV ICD and ESRD on HD admitted with syncope from VT s/p appropriate ICD shock. Subjective: In the past 24 hours, patient feels about the same. Denies chest pain, dyspnea , and syncope. PROBLEM LIST: # HFrEF from non-ischemic cardiomyopathy # Complete heart block s/p biV ICD 11/2014 # LBBB # ESRD on HD # COPD: quit smoking 04/2014 Exam Vital Signs Vital Sign - Last Date Time Temp Pulse Resp B/P Pulse Ox O2 Delivery O2 Flow Rate FiO2 09/14/16 12:35 36.3 58 20 121/68 97 Room Air Intake and Output 09/13/16 09/13/16 09/14/16 Cumulative From/Thru 15:00 23:00 07:00 09/13/16 12:58 - 09/14/16 06:10 Intake Total 500 ml 225 ml 582 ml 1307 ml Output Total 30 ml 0 ml 30 ml Balance 500 ml 195 ml 582 ml 1277 ml Intake Oral 225 ml 200 ml 425 ml IV Total 500 ml 382 ml 882 ml Output Urine Total 30 ml 0 ml 30 ml # Bowel Movements 1 1 General appearance: No apparent distress, elderly, frail, pleasant, cooperative HEET: Normocephalic atraumatic, no scleral icterus, tongue midline, mucous membranes moist Neck: supple Cardiovascular: irregularly irregular, normal S1 and normal S2, no murmurs/ rubs /gallops, trace peripheral edema Respiratory: Fair aeration, coarse b/l Abdomen: Soft, nontender, nondistended, + bowel sounds Neuro: Alert, no facial droop, tongue midline, no gross motor deficits Lab and Diagnostics Result Diagram: 09/14/16 0340 09/14/16 0340 X-Rays, CTs and MRIs Echo 09/14/2016: 1) Severely dilated left ventricle with severely reduced systolic function (EF 20-25%). 2) Global hypokinesis but the apical third appears akinetic. 3) Mildly dilated right ventricle with mildly reduced function.Pacemaker lead visualized in the right ventricle. 4) Severe biatrial enlargement. 5) Moderate mitral regurgitatoin present. 6) Moderate to severe tricuspid regurgitation present. 7) Elevated right sided and left sided fillling pressures. 8) Mild abdominal ascites noted. 9) Compared to the Echo done 01/23/2016, no significant change. Assessment & Plan Assessment 65 yo M h/o HFrEF from non-ischemic cardiomyopathy and complete heart block s/p BiV ICD and ESRD on HD admitted with syncope from VT s/p appropriate ICD shock: # HFrEF from non-ischemic cardiomyopathy: LVEF 20-25% on Echo 09/14/2016. Patient is clearly hypervolemic on echo due to medication non-compliance and inadequate dialysis. Recommend the following: - Continue carvedilol 6.25mg bid - Recommend hemodialysis on daily basis for near future to keep negative 2L daily - Agree with furosemide for now to see how much he can diurese. Patient does make some urine. # Syncope from VT s/p AICD shock 09/13/2016. VT could be from the cardiomyopathy compounded by HF exacerbation. - Continue amiodarone for now - HF management as above # Complete heart block s/p biV ICD 11/2014: AICD is functioning well but his capture thresholds are elevated and his battery life is draining fast. This could be due to fibrosis. - Defer management of elevated thresholds to outpatient EP # LBBB: chronic. Stable. # ESRD on HD: recommend daily dialysis. # COPD: quit smoking 04/2014. Congratulated on successful smoking cessation Problems: Pain Evaluation: Adequate Pain Control Resuscitation Status: CPR: Attempt Resuscitation Lizett Ware MD Sep 14, 2016 16:05
--- NOTE | 2016-09-14 16:18 | NUR ---
Dialysis note: 4 hr ordered tx. Accessed left fistula, 1 arterial 16 g, 2 venous 16g needles. Venous had good flash, no swelling but was extremely painful. Needle removed and new needle used to cannulate. Tx initiated without any more discomfort.
--- NOTE | 2016-09-14 20:05 | NUR ---
Dialysis note: 4 hrs tx. 3700 ml net UF per pt's request. LLA fistula. Pls see DTR for VS details. Qb 350 as ordered. Heparin given. Last hour of tx, pt moved his left arm, had high venous pressure alarms and complained of pain on venous needle site. Tx stopped and blood recirculated. Venous needle adjusted and tx restarted with no further problems. Tolerated treatment. Fistula needle sites clotted w/in 10 min. Transferred pt back to his room in stable condition. Report given to Ijeoma Lopez RN.
--- NOTE | 2016-09-14 22:17 | CONS ---
[address] [address] CONSULTATION REPORT PATIENT: DANISHA BAI : 1950 MR#: [id number] ADMIT: 09/13/2016 JOB ID: [id number] DATE OF SERVICE: REQUESTING PHYSICIAN: Dr. Gonzales. REASON FOR CONSULTATION: Management of end-stage renal disease. CHIEF COMPLAINT: Loss of consciousness. PRESENT ILLNESS: This is a 65-year-old male with significant past medical history of nonischemic cardiomyopathy with ejection fraction less than 20% status post biventricular AICD, end-stage renal disease on hemodialysis every Wednesday, Wednesday and Wednesday, hypertension, dyslipidemia, atrial fibrillation, V-tach who presented to the emergency department due to sudden loss of consciousness. Apparently, the patient was running errands. The next thing he remembers, he woke up surrounded by a group of people. He reported having similar symptoms in May 2016. Upon arrival, his initial vitals showed temperature of 35.8, pulse of 62, respiratory of 16, blood pressure of 127/76. The patient was evaluated by Dr. Francois. The patient had device checked by Dr. Francois. During the event, the patient was found to have ventricular tachycardia that occurred at 1:13 p.m. with a rate of 162 beats per minute. During my visit today, the patient feels normal. He has no chest pain. No shortness of breath. No fever. No chills. No lightheadedness. His last dialysis was on Wednesday. His dialysis unit is at [facility]. PAST MEDICAL HISTORY: 1. End-stage renal disease on hemodialysis every Wednesday, Wednesday, and Wednesday. 2. Nonischemic cardiomyopathy with ejection fraction less than 20% status post biventricular AICD. 3. Hypertension. 4. Dyslipidemia. 5. Atrial fibrillation. 6. COPD. 7. Pulmonary embolism. 8. Anemia in chronic kidney disease. 9. Depression. PAST SURGICAL HISTORY: 1. Status post AV fistula creation. 2. Status post AICD placement. 3. Status post appendectomy. 4. Status post hydrocelectomy. 5. Tonsillectomy. 6. Amputation of toe. ALLERGIES: CHLORHEXIDINE. SOCIAL HISTORY: The patient is a former smoker. He drinks rarely. Denies using illicit drugs. FAMILY HISTORY: Noncontributory. MEDICATIONS: Reviewed. REVIEW OF SYSTEMS: Fourteen point review of systems 14 system was performed. PHYSICAL EXAMINATION: Vitals: Temperature 36.4, pulse 68, respiratory rate 22, blood pressure 131/78, O2 sat 95% on room air. General appearance: Awake, alert, oriented x3. In no acute distress. HEENT: Mild pallor. No jaundice. No JVD. No lymphadenopathy. No thyroid enlargement. Positive hematoma measures 6 x 6 cm on the left occipital scalp. Heart: Regular rhythm. Normal S1, S2. Systolic murmur noted. Lungs: Clear to auscultation bilaterally. Abdomen is soft, active bowel sounds. No hepatosplenomegaly. Extremities: No edema, cyanosis or clubbing of fingers. Echocardiogram showed severely dilated left ventricle with severely reduced systolic function. Ejection fraction 20% to 25%, severe right atrial enlargement, moderate mitral regurgitation, [id number] tricuspid regurgitation. Chest x-ray showed moderate cardiomegaly without pulmonary edema to suggest congestive heart failure, possible early right upper lobe pneumonia. CT of brain showed no acute intracranial abnormalities, positive mild cerebral volume loss for age, left posterior parietal scalp soft tissue swelling. Shoulder x-ray showed no acute bony injury of the left shoulder. C-spine CT showed no acute bony injuries of the cervical and upper thoracic spine from the foramen magnum to the T4 level. LABORATORY: Sodium 134, potassium 4.7, chloride 91, bicarb 23, BUN 61, creatinine 5.86. Hemoglobin 13.4, WBC 10.1. ASSESSMENT: 1. End-stage renal disease, on hemodialysis every Wednesday, Wednesday, and Wednesday. 2. Syncopal episode secondary to ventricular tachycardia. 3. Nonischemic cardiomyopathy status post automatic implantable cardioverter-defibrillator, status post interrogation and evaluated by a spinner concrete pipe. 4. History of hypertension. 5. History of chronic obstructive pulmonary disease. 6. Chronic atrial fibrillation. 7. Community-acquired pneumonia. PLANS: Per renal standpoint, we will resume his routine hemodialysis to be performed every Wednesday, Wednesday and Wednesday. We will provide dialysis today for 4 hours with ultrafiltration as tolerated. Patient will be continued on the current blood pressure medications. Follow Cardiology recommendations. Thank you for the consultation. We will monitor along with you. FORTINO
[2016-09-15] VITALS (8 sets, daily range): BP systolic 117–144; BP diastolic 68–78; PULSE 65–72; RESP 16–20; O2SAT 92–97
--- NOTE | 2016-09-15 03:48 | NUR ---
Cardiac/Activity: Amiodarone gtt completed at 2140. Telemetry V-paced, HR: 60's. Denies chest pain. VSS. No overt signs or symptoms of distress. Pt. ambulated in two loops in hallway during shift with standby assist and cane. Tolerates activity well. Pt. admits to "feeling better".
[2016-09-15] MEDS: Albuterol-Ipratropium 3 mL Inhalation Solution NEB SCH ×2 (06:21→12:24)
[2016-09-15 08:55] LABS: Mean Corpuscular Hemoglobin 36.2 pg (27.0-35.0); Mean Corpuscular Volume 108.8 fL (81-100)
[2016-09-15] MEDS: Pantoprazole 20 mg ER24 Tablet PO SCH (09:13)
[2016-09-15 10:59] LABS: INR 2.11 ratio
[2016-09-15] MEDS ORDERED: DOXY100T2 PO (11:27)
[2016-09-15] MEDS ORDERED: CARV12.5 PO (11:27)
--- NOTE | 2016-09-15 11:50 | PCM.PNMED ---
Subjective Date of Service Sep 15, 2016 Subjective He is feeling better, HD yesterday without complications, UF 4L. Exam Vital Signs Vital Sign - Last Date Time Temp Pulse Resp B/P Pulse Ox O2 Delivery O2 Flow Rate FiO2 09/15/16 11:34 36.5 65 16 127/73 95 Room Air Intake and Output 09/14/16 09/14/16 09/15/16 Cumulative From/Thru 15:00 23:00 07:00 09/13/16 12:58 - 09/15/16 05:38 Intake Total 834 ml 600 ml 2741 ml Output Total 3700 ml 100 ml 50 ml 3880 ml Balance -3700 ml 734 ml 550 ml -1139 ml Intake Oral 560 ml 600 ml 1585 ml IV Total 274 ml 1156 ml Output Urine Total 100 ml 50 ml 180 ml Ultrafiltrate 3700 ml 3700 ml # Bowel Movements 0 1 2 Exam General appearance: Awake, alert, oriented x3. In no acute distress. HEENT: Mild pallor. No jaundice. No JVD. No lymphadenopathy. No thyroid enlargement. Positive hematoma measures 6 x 6 cm on the left occipital scalp. Heart: Regular rhythm. Normal S1, S2. Systolic murmur noted. Lungs: Clear to auscultation bilaterally. Abdomen is soft, active bowel sounds. No hepatosplenomegaly. Extremities: No edema, cyanosis or clubbing of fingers. Lab and Diagnostics Result Diagram: 09/15/1682409/15/16824 Assessment & Plan 1. End-stage renal disease, on hemodialysis every Wednesday, Wednesday, and Wednesday. 2. Syncopal episode secondary to ventricular tachycardia. 3. Nonischemic cardiomyopathy status post automatic implantable cardioverter -defibrillator. 4. History of hypertension. 5. History of chronic obstructive pulmonary disease. 6. Chronic atrial fibrillation. 7. Community-acquired pneumonia. PLANS: DW Dr. Ware, we will try to increase fluid removal during HD at least 3 L per session. I will notify his primary cage cashier, Dr. Arellano. Per renal standpoint, pt can be d/c'd home today. Resuscitation Status: CPR: Attempt Resuscitation Wally Rincon MD Sep 15, 2016 11:50
--- NOTE | 2016-09-15 12:05 | PCM.DIMED ---
Discharge Instructions Date of Service Sep 15, 2016 Dates of Hospitalization Sep 13, 2016 at 15:33 Discharge Diagnosis Discharge Diagnosis 1. VT with ICD shock (appropriate) 2. Possible pneumonia (CAP) 2. Chronic systolic heart failure 3. ESRD, hemodialysis M,W,F 4. Chronic atrial fibrillation Diet Low fat, Low Sodium, Renal Diet Activity Limited until seen by PCP Call your provider Fever or Chills, Shortness of breath, Chest pain Patient Instructions Follow-up Provider: Lizett Ware MD Follow-up with PCP in: 3 weeks Shin Walker MD Sep 15, 2016 12:05
--- NOTE | 2016-09-15 12:24 | PCM.PNCARD ---
Subjective Date of service Sep 15, 2016 Chief Complaint Syncope from VT History of Present Illness 65 yo M h/o HFrEF from non-ischemic cardiomyopathy and complete heart block s/p BiV ICD and ESRD on HD admitted with syncope from VT s/p appropriate ICD shock. Subjective: In the past 24 hours, patient feels much better today after dialysis yesterday. He walked down the hallway without difficulty. Denies chest pain, dyspnea, and syncope. PROBLEM LIST: # HFrEF from non-ischemic cardiomyopathy # Complete heart block s/p biV ICD 11/2014 # LBBB # ESRD on HD # COPD: quit smoking 04/2014 Exam Vital Signs Vital Sign - Last Date Time Temp Pulse Resp B/P Pulse Ox O2 Delivery O2 Flow Rate FiO2 09/15/16 11:34 36.5 65 16 127/73 95 Room Air Intake and Output 09/14/16 09/14/16 09/15/16 Cumulative From/Thru 14:59 22:59 06:59 09/13/16 12:58 - 09/15/16 05:38 Intake Total 834 ml 600 ml 2741 ml Output Total 3700 ml 100 ml 50 ml 3880 ml Balance -3700 ml 734 ml 550 ml -1139 ml Intake Oral 560 ml 600 ml 1585 ml IV Total 274 ml 1156 ml Output Urine Total 100 ml 50 ml 180 ml Ultrafiltrate 3700 ml 3700 ml # Bowel Movements 0 1 2 General appearance: No apparent distress, elderly, frail, pleasant, cooperative HEET: Normocephalic atraumatic, no scleral icterus, tongue midline, mucous membranes moist Neck: supple Cardiovascular: irregularly irregular, normal S1 and normal S2, +JVD, no murmurs / rubs/gallops, no peripheral edema Respiratory: Fair aeration, coarse b/l Abdomen: Soft, nontender, nondistended, + bowel sounds Neuro: Alert, no facial droop, tongue midline, no gross motor deficits Lab and Diagnostics Result Diagram: 09/15/1682409/15/16824 X-Rays, CTs and MRIs Echo 09/14/2016: 1) Severely dilated left ventricle with severely reduced systolic function (EF 20-25%). 2) Global hypokinesis but the apical third appears akinetic. 3) Mildly dilated right ventricle with mildly reduced function.Pacemaker lead visualized in the right ventricle. 4) Severe biatrial enlargement. 5) Moderate mitral regurgitatoin present. 6) Moderate to severe tricuspid regurgitation present. 7) Elevated right sided and left sided fillling pressures. 8) Mild abdominal ascites noted. 9) Compared to the Echo done 01/23/2016, no significant kumar Assessment & Plan Assessment 65 yo M h/o HFrEF from non-ischemic cardiomyopathy and complete heart block s/p BiV ICD and ESRD on HD admitted with syncope from VT s/p appropriate ICD shock: # HFrEF from non-ischemic cardiomyopathy: LVEF 20-25% on Echo 09/14/2016. Patient is clearly hypervolemic on echo due to inadequate dialysis. Recommend the following: - Increase carvedilol from 6.25mg bid to 12.5mg boid - I spoke with Dr. Daly (nephrology) and she has agreed to do more aggressive fluid removal on wednesdays and fridays. - Agree with furosemide for now to see how much he can diurese. Patient does make some urine. # Syncope from VT s/p AICD shock 09/13/2016. VT could be from the cardiomyopathy compounded by HF exacerbation. - Continue amiodarone 200mg daily - HF management as above # Complete heart block s/p biV ICD 11/2014: AICD is functioning well but his capture thresholds are elevated and his battery life is draining fast. This could be due to lead fibrosis or underlying fibrotic cardiomyopathy - Defer management of elevated thresholds to outpatient EP # LBBB: chronic. Stable. # ESRD on HD: recommend aggressive fluid removal during dialysis as outpatient # COPD: quit smoking 04/2014. Congratulated on successful smoking cessation Problems: Pain Evaluation: Adequate Pain Control Resuscitation Status: CPR: Attempt Resuscitation Lizett Ware MD Sep 15, 2016 12:24
--- NOTE | 2016-09-15 13:20 | NUR ---
Arranged Private Pay taxi to warehouse order picker patient and take him home at 1415. 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
--- NOTE | 2016-09-15 13:36 | PCM.DC.MED ---
Discharge Summary Date of Service Sep 15, 2016 Dates of Hospitalization Date of Hospital Admission Sep 13, 2016 at 15:33 Date of Discharge: Sep 15, 2016 Providers: Admitting Physician: Neda Gonzales MD [facility] Attending Physician: Neda Gonzales MD Diagnosis at Time of Discharge Diagnosis at Time of Discharge 1. VT with ICD shock (appropriate) 2. Possible pneumonia (CAP) 2. Chronic systolic heart failure 3. ESRD, hemodialysis M,W,F 4. Chronic atrial fibrillation Consultations Cardiology, Drs. Francois in [facility] Procedures XRay, CTs & MRIs Chest x-ray unremarkable. Brain CT unremarkable except for extracranial venous gas from recent IV access Neck CT unremarkable except for venous gas presumably from venous access. ECG 12 Lead By V paced rhythm Cardiac Echo Impression 1) Severely dilated left ventricle with severely reduced systolic function (EF 20-25%). 2) Global hypokinesis but the apical third appears akinetic. 3) Mildly dilated right ventricle with mildly reduced function.Pacemaker lead visualized in the right ventricle. 4) Severe biatrial enlargement. 5) Moderate mitral regurgitatoin present. 6) Moderate to severe tricuspid regurgitation present. 7) Elevated right sided and left sided fillling pressures. 8) Mild abdominal ascites noted. 9) Compared to the Echo done 01/23/2016, no significant change. Invasive Procedures Hemodialysis was performed on Wednesday. Brief History 65 yo M h/o HFrEF from non-ischemic cardiomyopathy and complete heart block s/p BiV ICD and ESRD on HD admitted with syncope from VT s/p appropriate ICD shock. Hospital Course 1. End-stage renal disease, on hemodialysis every Wednesday, Wednesday, and Wednesday. 2. Syncopal episode secondary to ventricular tachycardia. 3. Nonischemic cardiomyopathy status post automatic implantable cardioverter -defibrillator. 4. History of hypertension. 5. History of chronic obstructive pulmonary disease. 6. Chronic atrial fibrillation. 7. Community-acquired pneumonia. Hospital course patient was admitted after syncopal episode. His biventricular pacer ICD was interrogated and he did have DVT with an appropriate shock. This was the etiology of his syncopal episode. The time of admit he was evaluated with head CT and neck CT in the ED. These were both unremarkable other than evidence of some venous system consistent with recent IV access. The patient was given IV dose of amiodarone. He was found to be volume overloaded and was dialyzed on Wednesday. The patient had no recurrent arrhythmia after this. On the day of discharge his case was discussed with cardiology and nephrology. The patient was strongly hoping to go home was able to ambulate twice around the unit without any discomfort or dyspnea. Repeat echo indicated his profound ventricular left ventricular dysfunction but was essentially unchanged from prior. The decision was made to let him go home with ongoing dialysis which will be increased in terms of volume on Wednesdays and Fridays. In addition his Coreg will be increased in dose from 6.25-12.5 twice a day. Exam Vital Signs (Last) Date Time Temp Pulse Resp B/P Pulse Ox O2 Delivery O2 Flow Rate FiO2 09/15/16 12:25 Room Air 09/15/16 11:34 36.5 65 16 127/73 95 Exam Alert oriented 3 no acute distress. Fluent speech Lungs are clear normal effort and rate Heart is regular without murmur gallop or rub Abdomen is soft nontender. Extremities are free edema good pedal pulses. Test 09/13/16 12:51 09/13/16 13:26 09/13/16 19:54 09/14/16 03:40 Neutrophils (%) (Auto) 76.3% (40-74) Lymphocytes (%) (Auto) 11.5% (14-46) Monocytes (%) (Auto) 7.5% (4-12) Eosinophils (%) (Auto) 3.5% (0-5) Basophils (%) (Auto) 0.9% (0-3) Pro-B-Type Natriuretic Peptide 41042nf/mL (0-376) Lactic Acid Level 1.1mmol/L (0.4-2.0) Urine Color Dark yellow (YELLOW) Urine Appearance Clear (CLEAR,HAZY) Urine pH 6.0 (5.0-8.0) Urine Specific [place] 1.025 (1.003-1.035) Urine Protein 100mg/dL (NEG,TRACE) Urine Glucose (UA) Negativemg/dL (NEGATIVE) Urine Ketones Negativemg/dL (NEGATIVE) Urine Occult Blood Small (NEGATIVE) Urine Nitrite Negative (NEGATIVE) Urine Bilirubin Negative (NEGATIVE) Urine Urobilinogen Normalmg/dL (NORMAL) Urine Leukocyte Esterase Negative (NEGATIVE) Urine RBC 0-2/hpf (0-2) Urine WBC 0-5/hpf (0-5) Urine Epithelial Cells Moderate/hpf (NONE-MOD) Urine Crystals None seen (NONE SEEN) Urine Bacteria None/hpf (NONE-FEW) Urine Hyaline Casts None/lpf (NONE) Urine Granular Casts None seen (NONE SEEN) Urine Waxy Casts None seen (NONE SEEN) Urine Red Blood Cell Casts None seen (NONE SEEN) Urine White Blood Cell Casts None seen (NONE SEEN) Urine Mucus None seen (None Seen) Urine Trichomonas None seen (NONE SEEN) Urine Yeast None (NONE SEEN) Urinalysis Comment None Urine Culture Reflexed Not indicated Magnesium Level 1.8mg/dL (1.6-2.6) Troponin T 0.070ug/L (0.0-0.011) Test 09/15/16 08:25 09/15/16 10:31 White Blood Count 7.8th/mm3 (3.8-10.1) Red Blood Count 3.54mil/mm3 (4.40-5.80) Hemoglobin 12.8g/dL (13.8-17.2) Hematocrit 38.5% (41.0-50.0) Mean Corpuscular Volume 108.8fL (81-100) Mean Corpuscular Hemoglobin 36.2pg (27.0-35.0) Mean Corpuscular Hemoglobin Concent 33.2% (32.0-37.0) Red Cell Distribution Width 14.9% (12.3-15.4) Platelet Count 94bil/L (150-400) Sodium Level 133mEq/L (134-144) Potassium Level 3.9mEq/L (3.5-5.2) Chloride Level 90mEq/L (97-108) Carbon Dioxide Level 28mmol/L (18-29) Blood Urea Nitrogen 34mg/dL (8-27) Creatinine 4.68mg/dL (0.76-1.27) Estimat Glomerular Filtration Rate 13mL/min (>59) Glucose Level 79mg/dL (60-99) Calcium Level 9.1mg/dL (8.5-10.1) Total Bilirubin 1.3mg/dL (0.0-1.2) Aspartate Amino Transf (AST/SGOT) 22U/L (0-50) Alanine Aminotransferase (ALT/SGPT) 13U/L (0-44) Alkaline Phosphatase 101U/L (25-160) Total Protein 7.0g/dL (6.4-8.4) Albumin 3.5g/dL (3.4-5.0) Prothrombin Time 22.9sec (8.1-12.5) Prothromb Time International Ratio 2.11ratio Discharge Medications Discharge Medications Amiodarone (Amiodarone) 200 Mg Tablet 200 MG PO DAILY (Reported) Budesonide/Formoterol 160-4.5 mcg Inh (Symbicort 160-4.5 mcg Inh) 120 Puff Inhaler 2 PUFF INHALATION BID (Reported) Carvedilol (Coreg) 12.5 Mg Tablet 12.5 MG PO BID Prescribed by: SHIN LANDEROS MD Cholecalciferol (Vitamin D3) (Vitamin D3) 1,000 Unit Tab.chew 1,000 UNIT PO DAILY (Reported) Doxycycline Hyclate (Doxycycline Hyclate) 100 Mg Tablet 100 MG PO BID Prescribed by: SHIN LANDEROS MD Fluoxetine (Fluoxetine) 20 Mg Capsule 20 MG PO DAILY (Reported) Furosemide (Furosemide) 40 Mg Tablet 40 MG PO DAILY (Reported) Lisinopril (Lisinopril) 10 Mg Tablet 10 MG PO DAILY (Reported) Potassium Chloride ER (Potassium Chloride ER) 8 Meq Tablet 8 MEQ PO DAILY ( Reported) TAKE WITH FOOD Pravastatin (Pravastatin) 40 Mg Tablet 40 MG PO DAILY (Reported) Ropinirole (Ropinirole) 0.5 Mg Tablet 0.5 MG PO TID (Reported) Vitamin D3/Vitamin K2 (Mk4) (K2 Plus D3 Tablet) 1,000 Unit-100 Mcg Tablet 1 EACH PO DAILY (Reported) As needed Albuterol Sulfate (Proventil HFA Inhaler) 6.7 Gm Hfa.aer.ad 2 PUFF INH Q4 PRN PRN For Shortness of Breath (Reported) Followup Plan Disposition: Home Discharge Diet: Low fat, Low Sodium Discharge Activity: Limited until seen by PCP Follow-up Provider: Lizett Ware MD Follow-up with PCP in: 3 weeks Shin Landeros MD Sep 15, 2016 13:36
--- NOTE | 2016-09-15 14:55 | NUR ---
Amiodarone/Discharge Pt's amiodarone gtt D/C'd per NOC RN and no PO dose resumed, spoke with MD, Pt's home dose of 200mg amiodarone resumed and administered, Pt's tele V pacing in the 60s this am. Pt discharged to home via taxi arranged by SW. Pt discharged at ~1400. Pt's IV access D/C'd and intact X2. Pt given discharge educational materials on new prescriptions and syncope. Pt instructed to f/u with Dr. Velez at [facility], phone number supplied. [facility] Pt verbalized understanding of all discharge instructions. All belongings accompanied Pt at time of discharge.
== END 2016-09-15 14:41 | disposition home or self-care (01) | DRG 308 ==
LOC: SED 12:46 → EDBD 12:46 → SED 14:57 → MPC 15:33 → OBSVTOIN 15:33 → PCC 21:03
PROVIDERS: ADMIT Urology; ATTEND Urology
PROC: 4B02XTZ Measurement of Cardiac Defibrillator, External Approach (ICD-10-PCS; 2016-09-13)
PROC: 5A1D00Z (ICD-10-PCS; principal; 2016-09-14)
DX: I47.2 Ventricular tachycardia (principal); N18.6 End stage renal disease; J18.9 Pneumonia, unspecified organism; I50.22 Chronic systolic (congestive) heart failure; I42.9 Cardiomyopathy, unspecified; I12.0 Hypertensive chronic kidney disease with stage 5 chronic kidney disease or end stage renal disease; J44.0 Chronic obstructive pulmonary disease with (acute) lower respiratory infection; Z99.2 Dependence on renal dialysis; I44.2 Atrioventricular block, complete; R55 Syncope and collapse; I48.2 Chronic atrial fibrillation; E78.5 Hyperlipidemia, unspecified; D63.1 Anemia in chronic kidney disease; Z95.810 Presence of automatic (implantable) cardiac defibrillator; S00.03XA Contusion of scalp, initial encounter; W18.30XA Fall on same level, unspecified, initial encounter; Z79.01 Long term (current) use of anticoagulants; K21.9 Gastro-esophageal reflux disease without esophagitis; F32.9 Major depressive disorder, single episode, unspecified

== ENCOUNTER 2016-12-15 00:16 | Day surgery (SDC) | payer MEDICARE, OTHER ==
[~2016-12-15 00:16] MED LIST changes: +CARV12.5 PO; -CARV6.252 PO; +DOXY100T2 PO
--- NOTE | 2016-12-15 09:30 | NUR ---
pt seen for physician consult with dr stovall. iv started for ct scan procedure, d/c'd to ct scan.
[2016-12-15 10:02] VITALS: BP 107/64; PULSE 54; RESP 16; O2SAT 97
[2016-12-15] MEDS ORDERED: OXYC1TAB24 PO (10:02)
[2016-12-15] MEDS ORDERED: WARF2.5T82 PO (10:02)
--- NOTE | 2016-12-15 13:41 | DRSVH ---
PROCEDURE: CT ANGIOGRAPHY OF THE AORTA WITH RUN-OFF WITH AND WITHOUT CONTRAST ([id number]) INDICATIONS: PVD, VASCULAR NON HEALING WOUNDS TECHNIQUE: After the administration of intravenous contrast, 2 and 5 mm sections acquired from T12 to the feet, with optional delayed image acquisition from the knees to the feet. 3-dimensional maximum intensity projection (MIP) coronal and sagittal reformats, and/or 3-dimensional volume rendering reformatting w as then performed. For radiation dose reduction, the following was used: automated exposure control . COMPARISON: None. FINDINGS: Image quality: Excellent. Extravascular tissues: The liver is diffusely hypodense suggesting fatty infiltration. The spleen de monstrates normal size and enhancement. There is low-density perihepatic and perisplenic free fluid. Subcentimeter gallstones are layered in the gallbladder fundus. No gallbladder wall thickening. Bilia ry system is non dilated. Pancreas enhances normally. No adrenal nodules. Severe right and moderate left renal atrophy. Low-density exophytic lesions are present off the right kidney consistent with c ortical cyst. Non opacified bowel loops demonstrate normal wall thickness and enhancement. There are scattered sigmoid diverticula. No evidence for diverticulitis. No pneumoperitoneum. There is a small- to-moderate amount of low density ascites. No retroperitoneal or mesenteric adenopathy. No ventral h ernias. Bladder wall thickness is normal. No inguinal hernias. There are multiple shotty inguinal l ymph nodes, the largest of which measures 1.3 cm in diameter. No suspicious bony lesions. No vertebr al body compression fractures. Abdominal aorta: Dense atheromatous calcification and your areas present throughout the abdominal aor ta. A focal high-grade stenosis is present at the celiac axis which is otherwise patent. A focal high -grade stenosis is present at the origin of the SMA which is otherwise patent. The right renal artery is occluded. There is trace flow within the left renal artery. The OSWALDO is not visualized. Right lower extremity: A focal high-grade stenosis is present within the proximal right iliac artery. Surrounding this weblike stenosis there is fusiform dilatation of the artery. Poor distal [place] ac artery is patent. Dense atheromatous calcification is present throughout the internal iliac artery which is patent. The right external iliac artery is patent with moderate mural irregularity from ath eromatous calcification. The right common femoral artery is patent with mural irregularity from ather omatous calcification. The profunda is patent. Diffuse calcification is present throughout the right superficial femoral artery. Focal high-grade stenoses are present within the mid and distal third of the artery. The popliteal artery is patent with moderate stenosis from atheromatous calcifications. T he anterior tibial, posterior tibial, and peroneal arteries are patent to the level of the foot. Left lower extremity: Dense atheromatous calcification is present throughout the left common iliac ar leslee without focal stenosis. Atheromatous calcific indications are present throughout the internal il iac which does not opacify suggesting occlusion. There is moderate, diffuse narrowing of the left ext ernal iliac artery secondary to atheromatous calcification. There is mild to moderate narrowing of th e left common femoral artery as well. The profunda is patent. Dense atheromatous calcification is pre sent throughout the left superficial femoral artery. Multifocal high-grade stenoses are present withi n the mid and distal third secondary to atheromatous calcification. The popliteal artery is mildly na rrowed. The anterior tibial, posterior tibial, and peroneal arteries are patent to the level of the f oot. IMPRESSION: 1. Probable hepatic steatosis although other sources of hepatocellular dysfunction cannot be excluded . 2. Diffuse intra-abdominal low density ascites suggesting fluid overload. It is unclear whether this is associated with the patient's chronic renal failure or history of CHF. 3. Diverticulosis. No acute diverticulitis. 4. Right inguinal adenopathy. This may be reactive/infectious in nature given the history of foot ulc ers. 5. Multiple moderate or high-grade stenoses within the bilateral lower extremity arteries, all of whi ch are likely amenable to percutaneous angioplasty. 6. Bilateral three-vessel lower extremity runoff. The results of this study were discussed with Dr. Cochran and with the patient on 12/15/16. The patient alo l be scheduled at his earliest convenience for bilateral lower extremity arteriogram and angioplasty. Given the patient's history of CHF and an ejection fraction of 10% (per Dr. Cochran), he will be schedul ed with anesthesia. Dictated by: Kera Oquendo M.D. on 12/15/2016 at 13:13 Approved by: Kera Oquendo M.D. on 12/15/2016 at 13:39
--- NOTE | 2016-12-15 15:28 | DRSVH ---
PROCEDURE: PHYSICIAN CONSULTATION COMPARISON: [facility] Ultrasound, US, US ARTERY LEG DPLX KOBI, 12/01/2016, 14:13. ID & CHIEF COMPLAINT: Mr. Arenas is a 66-year-old gentleman who presents to discuss nonhealing ulcers of the bilateral toes. HISTORY OF PRESENT ILLNESS: The patient states he has had multiple partial amputations of the toes of both feet over the last several years. He currently has nonhealing ulcers bilaterally. Additionally, he has severe rest pain. For example, when he goes in for dialysis, the patient needs to intermitten tly stand to relieve his foot pain. He underwent arterial duplex of the bilateral lower extremities w [facility] demonstrated multifocal mild to moderate stenoses. He presents to discuss angiogram and possible angioplasty. PAST MEDICAL HISTORY: The patient's medical history significant for a severe bout of congestive heart failure in 2009. He subsequently underwent pacemaker/defibrillator placement at 2014. He states the defibrillator has fired 3 times since then. His ejection fraction is currently 10% per Dr. Cochran the [facility] provider. The patient is hemodialysis dependent after renal failure approximately 3 years ago. The patient denies diabetes. PAST SURGICAL HISTORY: Past surgical history is significant for history of multiple partial toe amput ations, appendectomy, tonsillectomy, and fistula placement of a left upper extremity. FAMILY HISTORY: Noncontributory SOCIAL HISTORY: The patient has a 40 pack year history. He states he quit 1.5 years ago; however stat es he smokes intermittently and his last cigarette was 2 days ago. ALLERGIES: Chlorhexidine MEDICATIONS: Medication list on file (in PACS documents) and reviewed. FOCUSED PHYSICAL EXAM: Physical exam was deferred at today's study. IMAGING STUDIES: Bilateral lower extremity arterial duplex demonstrates extensive atheromatous plaque throughout the lower extremities. There is some decrease in the overall arterial waveforms are triph asic or biphasic with the exception of a monophasic waveform within the left profunda. IMPRESSION: In summary, Mr. Arenas is a pleasant 58-year-old gentleman who presents to discuss peripheral vascula r disease and severe rest pain in the setting of nonhealing ulcers and a history of bilateral toe amp utations. Given the results of the arterial duplex, CT angiogram is recommended to further characteri ze findings and evaluate for the potential for and angioplasty and possible stenting. Dr. Oquendo will contact the patient with the results of the CT scan and further discuss potential the rapeutic options. Of note, given the patient's extensive cardiac history and low cardiac output, if we are to proceed w ith angioplasty, this will likely need to be scheduled with the anesthesiology service for cardioresp iratory monitoring and sedation. Thank you for this interesting consult. Dictated by: Kera Oquendo M.D. on 12/15/2016 at 15:15 Approved by: Kera Oquendo M.D. on 12/15/2016 at 15:27
== END 2016-12-15 23:59 | disposition home or self-care (01) ==
LOC: SOUO 00:16
PROVIDERS: ATTEND Podiatrist
DX: Z71.89 Other specified counseling (principal); I70.245 Atherosclerosis of native arteries of left leg with ulceration of other part of foot; L97.529 Non-pressure chronic ulcer of other part of left foot with unspecified severity; I70.235 Atherosclerosis of native arteries of right leg with ulceration of other part of foot; L97.519 Non-pressure chronic ulcer of other part of right foot with unspecified severity; F17.210 Nicotine dependence, cigarettes, uncomplicated; N18.6 End stage renal disease; Z99.2 Dependence on renal dialysis; I50.9 Heart failure, unspecified; Z95.810 Presence of automatic (implantable) cardiac defibrillator; Z89.429 Acquired absence of other toe(s), unspecified side
CPT/HCPCS: 75635; G0463; Q9967

== ENCOUNTER 2017-01-07 01:27 | Day surgery (SDC) | payer MEDICARE, MEDICAID ==
[~2017-01-07 01:27] MED LIST changes: -DOXY100T2 PO; -LISI10TA PO; +OXYC1TAB24 PO; -POTA8TAB8 PO; -VITA-272 PO; +WARF2.5T82 PO
[2017-01-07] MEDS ORDERED: Lactated Ringer's 1,000 ML IV SCH (05:00)
--- NOTE | 2017-01-07 07:29 | PCM.HPANE ---
Patient Data Surgeon Admitting Provider: Attending Provider:Carine Cochran DPM [facility] Other Provider:Kosta Gaitan Anesthesia Reason for Visit Peripheral Vascular Disease/Non-Healing Wound Ht/WT & BMI Body Mass Index Allergies Coded Allergies: chlorhexidine (Verified Allergy, Mild, ITCHING, 09/13/16) vancomycin (Verified Allergy, Unknown, 01/11/17) Past Anesthesia History Anesthesia History: Denies:: Abnormal Airway, Anesthesia Reactions, Difficult Intubation, Malignant Hyperthermia Diabetes History Hx Diabetes?: No MRSA MRSA: No Medications Blood Thinner: Aspirin Active Scripts Hydrocodone-Acetaminophen 5-325 mg 1 Each Tablet1 Tablet PO Q4H PRN For Pain # 10 TABLET Prov:Rupert Guevara MD 01/25/17 Carvedilol (Coreg)12.5 Mg Kjlfqi95.5 Mg PO BID #60 TABLET Ref 3 Prov:Shin Walker MD 09/15/16 Reported Medications Fluticasone Propionate 50 Mcg/Actuation [place].susp15.8 Ml NS 01/11/17 Sevelamer Carbonate (Renvela)800 Mg [id number] Mg PO TID 90 Days 01/11/17 Cinacalcet (Sensipar)30 Mg [id number] Mg PO DAILY Ref 0 01/11/17 Warfarin Sodium 2.5 Mg Tablet2.5 Mg PO DAILY 30 Days Ref 0 2.5 mg wed sat 3.75 mg wed12/15/16 oxyCODONE-Acetaminophen 5-325 mg 1 Each TabletUnknown Dose PO Q4H PRN For Pain Ref 0 12/15/16 Budesonide/Formoterol 160-4.5 mcg Inh (Symbicort 160-4.5 mcg Inh)120 Puff Inhaler2 Puff INHALATION BID #1 INHALER Ref 0 07/22/16 Ropinirole 0.5 Mg Tablet0.5 Mg PO TID Ref 0 07/22/16 Albuterol Sulfate (Proventil HFA Inhaler)6.7 Gm Hfa.aer.ad2 Puff INH Q4 PRN For Shortness of Breath #1 INHALER Ref 0 07/22/16 Pravastatin 40 Mg [id number] Mg PO DAILY Ref 0 07/22/16 Furosemide 40 Mg Dpmufr15 Mg PO DAILY 07/22/16 Fluoxetine 20 Mg Bjuhgyo15 Mg PO DAILY Ref 0 07/22/16 Amiodarone 200 Mg [id number] Mg PO DAILY Ref 0 07/22/16 History History of ENT Problems?: Yes HEENT History: Positive for:: Sinus Problem Denies:: Abnormal Airway Cataracts Difficult Intubation Dysphagia Denture Type: None Teeth Condition: Within Normal Limits Hx of Heart Problems?: Yes Cardiovascular History: Positive for:: AICD (11/2014) Abdominal Aortic Aneurism (DISTAL ABD AORTA-NO U/S SINCE 2009 & PCP IS ARRANGING F/U U/S) Cardiac Surgery (BI V AICD 11/2014) Congestive Heart Failure Edema (mild after extended periods up on his feet) Hypertension Pacemaker Thrombophlebitis (FEET) Valvular Heart Disease (echo 01/2016- ef <20%) Denies:: Chest Pain Heart Murmur Irregular Heartbeat Hx of Respiratory Problem?: Yes Respiratory History: Positive for:: COPD Dyspnea (NUNO) Pneumonia Pulmonary Embolism (HX OF) Denies:: Asthma Emphysema Hemoptysis Tuberculosis Use of C-PAP Machine Hx Neurologic Problems?: Yes Neurological History: Positive for:: Dizziness Denies:: Alzheimer's Disease CVA Dementia Headaches Parkinson's Disease Seizures Hx of GI Problems?: Yes Hx of Problems?: Yes Genitourinary History: Positive for:: HX of Hemodialysis (three times weekly) Denies:: Kidney Stones Urinary Tract Infection HX of Peritoneal Dialysis: No Male Hx: Positive for:: Scrotal Mass (S/P HYDROCELECTOMY) Testicular Surgery Denies:: Prostate Problems Skin History: Positive for:: Pressure Ulcers (left foot- sees wound care 2xweekly) Denies:: History Skin Disorders? Hx Musculoskeletal Problems?: Yes Musculoskeletal History: Positive for:: Musculoskeletal Trauma (osteoyelitis- non healing wounds- feet current admission problem) Denies:: Back Injury Joint Replacement Hx of Psycho/Social Problems?: Yes Psycho Social History: Positive for:: Anxiety Hx Depression Hx Surgeries?: Yes (Appy, tonsils, hydrocele,AMP LT SMALL TOE,AICD,A/V FISTULA/ ANGIOPLASTY) Hx Any Other Health Problems?: Yes Other History: Positive for:: Hospitalization Denies:: Cancer Endocrine Disease Thyroid Disease History Blood Transfusions: Denies:: Blood Transfuse Reaction (unknown) Blood Transfusions Hx Diabetes: No Hx Alcohol Use: NoHx Substance Use: No Smoking Status: Former Smoker Smoker Current Status UNK Have You Smoked inLast 12 mo: Yes Stop/Bang Risk Assessment Category Category 1A: Patient has history of documented sleep apnea, and HAS NOT received any narcotic, sedative or anesthesia administration during this stay. Category 1B: Patient has history of documented sleep apnea, and HAS received any narcotic , sedative or anesthesia administration during this stay Category 2: Patient has SUSPECTED Obstructive Sleep Apnea, and HAS received any narcotic , sedative or anesthesia administration during this stay. Category 3: Patient has SUSPECTED Obstructive Sleep Apnea and HAS NOT received narcotic, sedative or anesthesia administration during this stay. Category 4: Outpatient in Procedural Areas with known sleep apnea or who screen positive for High Risk via the STOP/BANG questionnaire. Exam Exam General Appearance: Other HEENT/AIRWAY: Other Plan Impression Patient chart reviewed, patient interviewed and anesthestic plan with risks, benefits, and alternatives discussed, and informed consent obtained. Other care provided by another physician, please disregard this note Tho Brown MD Jan 07, 2017 07:29
--- NOTE | 2017-01-07 11:23 | NUR ---
DMITRY Bedside INR done on arrival at 1145. Patient reports not holding warfarin and taking yesterdays dose. INR 2.0. MD notified and decision made to reschedule. Instructions reviewed with patient, written information given and questions answered.
[2017-01-11] MEDS ORDERED: Lactated Ringer's 1,000 ML IV ONE (05:00)
--- NOTE | 2017-01-11 06:54 | PCM.HPANE ---
Patient Data Surgeon Admitting Provider: Attending Provider:Carine Cochran DPM [facility] Other Provider:Kosta Gaitan Anesthesia Reason for Visit Peripheral Vascular Disease/Non-Healing Wound Ht/WT & BMI Body Mass Index Allergies Coded Allergies: chlorhexidine (Verified Allergy, Mild, ITCHING, 09/13/16) vancomycin (Verified Allergy, Unknown, 01/11/17) Past Anesthesia History Anesthesia History: Denies:: Abnormal Airway, Anesthesia Reactions, Difficult Intubation, Malignant Hyperthermia Diabetes History Hx Diabetes?: No MRSA MRSA: No Medications Blood Thinner: Aspirin Active Scripts Carvedilol (Coreg)12.5 Mg Ievhdw99.5 Mg PO BID #60 TABLET Ref 3 Prov:Shin Walker MD 09/15/16 Reported Medications Fluticasone Propionate 50 Mcg/Actuation [place].susp15.8 Ml NS 01/11/17 Sevelamer Carbonate (Renvela)800 Mg Kmjhor627 Mg PO TID 90 Days 01/11/17 Cinacalcet (Sensipar)30 Mg Etaxmy00 Mg PO DAILY Ref 0 01/11/17 Warfarin Sodium 2.5 Mg Tablet2.5 Mg PO DAILY 30 Days Ref 0 2.5 mg wed sat 3.75 mg wed12/15/16 oxyCODONE-Acetaminophen 5-325 mg 1 Each TabletUnknown Dose PO Q4H PRN For Pain Ref 0 12/15/16 Budesonide/Formoterol 160-4.5 mcg Inh (Symbicort 160-4.5 mcg Inh)120 Puff Inhaler2 Puff INHALATION BID #1 INHALER Ref 0 07/22/16 Ropinirole 0.5 Mg Tablet0.5 Mg PO TID Ref 0 07/22/16 Albuterol Sulfate (Proventil HFA Inhaler)6.7 Gm Hfa.aer.ad2 Puff INH Q4 PRN For Shortness of Breath #1 INHALER Ref 0 07/22/16 Pravastatin 40 Mg [place]46 Mg PO DAILY Ref 0 07/22/16 Furosemide 40 Mg Qqpafz57 Mg PO DAILY 07/22/16 Fluoxetine 20 Mg Miaqmjp23 Mg PO DAILY Ref 0 07/22/16 Amiodarone 200 Mg Npziqg391 Mg PO DAILY Ref 0 07/22/16 Discontinued Reported Medications Cholecalciferol (Vitamin D3) (Vitamin D3)1,000 Unit Tab.chew1,000 Unit PO DAILY 07/22/16 History History of ENT Problems?: Yes HEENT History: Positive for:: Sinus Problem Denies:: Abnormal Airway Cataracts Difficult Intubation Dysphagia Denture Type: Full- Upper Full- Lower Teeth Condition: Within Normal Limits Hx of Heart Problems?: Yes Cardiovascular History: Positive for:: AICD (11/2014) Abdominal Aortic Aneurism (DISTAL ABD AORTA-NO U/S SINCE 2009 & PCP IS ARRANGING F/U U/S) Cardiac Surgery (BI V AICD 11/2014) Congestive Heart Failure Edema (mild after extended periods up on his feet) Hypertension Pacemaker Thrombophlebitis (FEET) Valvular Heart Disease (echo 01/2016- ef <20%) Denies:: Chest Pain Heart Murmur Irregular Heartbeat Hx of Respiratory Problem?: Yes Respiratory History: Positive for:: COPD Dyspnea (NUNO) Pneumonia Pulmonary Embolism (HX OF) Denies:: Asthma Emphysema Hemoptysis Tuberculosis Use of C-PAP Machine Hx Neurologic Problems?: Yes Neurological History: Positive for:: Dizziness Denies:: Alzheimer's Disease CVA Dementia Headaches Parkinson's Disease Seizures Hx of GI Problems?: Yes Hx of Problems?: Yes Genitourinary History: Positive for:: HX of Hemodialysis (three times weekly) Denies:: Kidney Stones Urinary Tract Infection HX of Peritoneal Dialysis: No Male Hx: Positive for:: Scrotal Mass (S/P HYDROCELECTOMY) Testicular Surgery Denies:: Prostate Problems Skin History: Positive for:: Pressure Ulcers (left foot- sees wound care 2xweekly) Denies:: History Skin Disorders? Hx Musculoskeletal Problems?: Yes Musculoskeletal History: Positive for:: Musculoskeletal Trauma (osteoyelitis- non healing wounds- feet current admission problem) Denies:: Back Injury Joint Replacement Hx of Psycho/Social Problems?: Yes Psycho Social History: Positive for:: Anxiety Hx Depression Hx Surgeries?: Yes (Appy, tonsils, hydrocele,AMP LT SMALL TOE,AICD,A/V FISTULA/ ANGIOPLASTY) Hx Any Other Health Problems?: Yes Other History: Positive for:: Hospitalization Denies:: Cancer Endocrine Disease Thyroid Disease History Blood Transfusions: Denies:: Blood Transfuse Reaction (unknown) Blood Transfusions Hx Diabetes: No Hx Alcohol Use: NoHx Substance Use: No Smoking Status: Former Smoker Smoker Current Status UNK Have You Smoked inLast 12 mo: Yes Stop/Bang Risk Assessment Category Category 1A: Patient has history of documented sleep apnea, and HAS NOT received any narcotic, sedative or anesthesia administration during this stay. Category 1B: Patient has history of documented sleep apnea, and HAS received any narcotic , sedative or anesthesia administration during this stay Category 2: Patient has SUSPECTED Obstructive Sleep Apnea, and HAS received any narcotic , sedative or anesthesia administration during this stay. Category 3: Patient has SUSPECTED Obstructive Sleep Apnea and HAS NOT received narcotic, sedative or anesthesia administration during this stay. Category 4: Outpatient in Procedural Areas with known sleep apnea or who screen positive for High Risk via the STOP/BANG questionnaire. Exam Exam General Appearance: Alert, Oriented X3, Cooperative, Mild Distress HEENT/AIRWAY: MP 2, Neck Movement (from), Mouth Opening (wnl with dentures) Lungs: Normal Air Movement Plan Impression Patient chart reviewed, patient interviewed and anesthestic plan with risks, benefits, and alternatives discussed, and informed consent obtained. ASA Physical Status: ASA3 Severe Disease Anesthetic Plan: MAC Bene/Risks/Altern/Consents: Yes HP Complete Prior to Induction: Yes Other Dialzyed on Wednesday Brent Wilson MD Jan 11, 2017 06:54
[2017-01-11] MEDS ORDERED: Lactated Ringer's 1,000 ML IV SCH (13:49)
[2017-01-11] MEDS ORDERED: Lactated Ringer's 500 ML IV PRN (13:49)
[2017-01-11] MEDS ORDERED: Ondansetron 2 mg/mL 2 mL Inj IVPUSH PRN (13:50)
[2017-01-11] MEDS ORDERED: Dexamethasone 4 mg/mL Inj IVPUSH PRN (13:50)
[2017-01-11] MEDS ORDERED: Phenylephrine 10,000 mCg/mL Inj IVPUSH PRN (13:50)
[2017-01-11] MEDS ORDERED: hydrALAZINE 20 mg/mL Inj IVPUSH PRN (13:50)
[2017-01-11] MEDS ORDERED: fentaNYL-PF 50 mCg/mL 2 mL Inj IVPUSH PRN (13:50)
[2017-01-11] MEDS ORDERED: HYDROmorphone 1 mg/mL Inj IVPUSH PRN (13:50)
[2017-01-11] MEDS ORDERED: Albuterol 2.5 mg/3 mL Inhalation Solution NEB PRN (13:50)
[2017-01-11] MEDS ORDERED: EPHEDrine Sulfate 50 mg/mL Inj IVPUSH PRN (13:50)
[2017-01-11] MEDS ORDERED: Labetalol 5 mg/mL 4 mL Inj IV PRN (13:50)
[2017-01-11] MEDS ORDERED: Atropine 0.4 mg/mL Inj IVPUSH PRN (13:50)
--- NOTE | 2017-01-11 13:51 | PCM.ANEP1 ---
Post Anesthesia PACU Phase 1 Assessment Anesthetic Administered: GA Level of Alertness: Sleeping, hard to arouse PAEZ's with Equal Strength: Yes Pain: No Nausea or Vomiting: No CV Function & Hydration Stable: Yes Airway Device: Oxygen Delivery: Nasal Cannula Lungs: Normal Air Movement, Wheezes PACU Phase 2 Assessment Complications: No Follow up Care: No Patient Instructions Provided: N/A Brent Wilson MD Jan 11, 2017 13:51
== END 2017-01-07 23:59 | disposition home or self-care (01) ==
LOC: SOUO 01:27
PROVIDERS: ATTEND Podiatrist
DX: I73.9 Peripheral vascular disease, unspecified (principal); Z53.09 Procedure and treatment not carried out because of other contraindication

== ENCOUNTER 2017-01-11 00:25 | Day surgery (SDC) | payer MEDICARE, OTHER ==
[2017-01-11] VITALS (12 sets, daily range): BP systolic 110–135; BP diastolic 55–77; PULSE 50–62; RESP 14–16; O2SAT 97–98
[~2017-01-11] VITALS: Ht 182.9 cm; Wt 77.0 kg
[2017-01-11] MEDS ORDERED: fentaNYL-PF 50 mCg/mL 2 mL Inj ONE (00:26)
[2017-01-11] MEDS ORDERED: Propofol 10,000 mCg/mL 20 mL Inj ONE (00:26)
[2017-01-11] MEDS ORDERED: SEVE800T7 PO (10:56)
[2017-01-11] MEDS ORDERED: CINA30TA PO (10:56)
[2017-01-11] MEDS ORDERED: FLUT15.88 NS (10:56)
[2017-01-11 11:04] LABS: BASOPHILS % (AUTO) 1.1 % (0-3); EOSINOPHILS % (AUTO) 5.5 % (0-5); MONOCYTES % (AUTO) 7.7 % (4-12); Mean Corpuscular Hemoglobin 35.8 pg (27.0-35.0); Mean Corpuscular Volume 110.2 fL (81-100); NEUTROPHILS % (AUTO) 76.6 % (40-74); Platelet Count 110 bil/L (150-400)
[2017-01-11 11:16] LABS: INR 1.71 ratio
[2017-01-11] MEDS ORDERED: Heparin 10,000 Unit/1,000 mL NS Premix IV ONE (12:37)
[2017-01-11] MEDS ORDERED: Heparin 1,000 Unit/mL 10 mL Inj ONE (12:51)
--- NOTE | 2017-01-11 14:25 | DRSVH ---
PROCEDURE: 1. Abdominal aortogram. 2. Bilateral lower extremity runoff. 3. Selective left superficial femoral arteriography. 4. Right groin closure device. INDICATIONS: Bilateral lower extremity nonhealing ulcers. COMPARISON: None. TECHNIQUE: Informed, written consent from the patient was obtained prior to the procedure. Patient wa s brought to the angiography suite. Sedation was administered by the anesthesiology service while con tinuous cardiorespiratory monitoring was performed. Maximal sterile barrier technique, hand hygiene, skin preparation, and sterile ultrasound technique (if ultrasound was utilized) was followed. A mask, sterile gown, sterile gloves, a large sterile sheet, hand hygiene, and 2% chlorhexidine or iodine wa s utilized for skin antisepsis. The bilateral groins were prepped and draped sterilely, and the skin and subcutaneous tissues overlying the right common femoral artery were infused with lidocaine. The r ight common femoral artery was accessed retrograde with a micropuncture set. A 4 Macanese sheath was ad vanced, through which a 4 Macanese pigtail catheter was advanced into the perirenal abdominal aorta, an d was injected for AP aortography, pelvic oblique arteriography, as well as bilateral lower extremity runoff evaluation. A 4 Macanese C2 catheter was used to select the left common femoral artery, which w as injected for selective left superficial femoral arteriography. A 5 Macanese Ansell sheet was then ad vanced, and the tip placed in the left common femoral artery. Pullback pressures across the left exte rnal iliac, common iliac, the right common iliac, and the right external iliac arteries were obtained . Sheath was removed and Starclose device was used to close the arteriotomy. FLUOROSCOPY TIME: 9.5 minutes FINDINGS: Aneurysmal dilatation of the abdominal aorta is present, as seen by CT. Right: There is aneurysmal dilatation of the common iliac artery, which is patent. The internal iliac artery is occluded. The external iliac artery is patent. The common, profunda, and superficial femoral maryann herbert demonstrate mild diffuse stenoses. Above and below knee popliteal arteries are mildly diffusely stenotic. Anterior tibial artery, tibioperoneal trunk, peroneal and posterior tibial arteries are pat ent to distal calf. No hemodynamically significant stenosis is measured within the right common, nor external iliac arteries. Left: There is a focal ulceration of the left common iliac artery, as seen by CT, which is mildly diffusely aneurysmally dilated, without significant stenosis. Internal iliac artery is occluded. External ricco c artery is patent. Common femoral artery is patent. Profunda femoral artery demonstrates a high grad e origin stenosis. Superficial femoral artery is mildly diffusely stenotic. Labrum bony popliteal art corin is mildly diffusely stenotic. The anterior tibial artery, tibioperoneal trunk, peroneal, and post erior tibial arteries are patent to distal calf. IMPRESSION: 1. Aortoiliac aneurysms, as seen by CT. 2. No hemodynamically significant bilateral iliac artery stenosis. 3. No significant outflow stenoses. 4. 3 vessel lower extremity runoff bilaterally. Dictated by: Jeanne Vigil M.D. on 01/11/2017 at 14:17 Approved by: Jeanne Vigil M.D. on 01/11/2017 at 14:23
--- NOTE | 2017-01-11 17:23 | NUR ---
Pt discharged to home, via wheelchair, accompanied by friend. Pt given all discharge instructions, IVs discontinued intact. Pt's VSS, Rt groin puncture site CDI with no bleeding noted. Pt had no further questions at time of d/c.
== END 2017-01-11 23:59 | disposition home or self-care (01) ==
LOC: SOUO 00:25
PROVIDERS: ATTEND Radiology Diagnostic Radiology
DX: I70.8 Atherosclerosis of other arteries (principal); I71.4 Abdominal aortic aneurysm, without rupture; I72.3 Aneurysm of iliac artery; I70.249 Atherosclerosis of native arteries of left leg with ulceration of unspecified site; L97.929 Non-pressure chronic ulcer of unspecified part of left lower leg with unspecified severity; I48.92 Unspecified atrial flutter; Z79.01 Long term (current) use of anticoagulants; I42.9 Cardiomyopathy, unspecified; Z95.810 Presence of automatic (implantable) cardiac defibrillator; Z79.899 Other long term (current) drug therapy
CPT/HCPCS: 36246; 36415; 75625; 75716; 75774; 80048; 85025; 85610; C1760; C1769; J1644; J3010; Q9967

== ENCOUNTER 2017-01-25 10:14 | Emergency (ER) | payer MEDICARE, OTHER ==
[~2017-01-25] VITALS: Ht 182.9 cm; Wt 78.0 kg
[~2017-01-25 10:14] MED LIST changes: -CHOL10008 PO; +CINA30TA PO; +FLUT15.88 NS; +SEVE800T7 PO
[2017-01-25 10:31] VITALS: BP 106/65; PULSE 57; RESP 12; O2SAT 99
--- NOTE | 2017-01-25 10:57 | ED.REPORT ---
HPI-Extremity Problem Lower Date of Service Jan 25, 2017 ED Provider: Dr. Guevara Pt is a 66 y/o male anticoagulated on Warfarin w/ a hx of prior PE, CHF, Biventricular AICD, HTN, hyperlipidemia, ESRD on HD, presenting to the ED c/o left hip pain secondary to likely mechanical ground level fall onto linoleum corina which occurred 3 days ago. The patient was walking and "just fell" onto his left hip without tripping or slipping although he denies syncope and head injury. He has been able to ambulate since the fall but with progressively worsening pain. Pt denies lightheadedness, dizziness, numbness, weakness, back pain. Nursing Notes Stated Complaint: FELL/LEFT HIP PAIN Chief Complaint: Extremity Trauma Nursing Notes Reviewed: Yes Allergies: Coded Allergies: chlorhexidine (Verified Allergy, Mild, ITCHING, 09/13/16) vancomycin (Verified Allergy, Unknown, 01/11/17) Scheduled Amiodarone (Amiodarone) 200 Mg Tablet 200 MG PO DAILY Budesonide/Formoterol 160-4.5 mcg Inh (Symbicort 160-4.5 mcg Inh) 120 Puff Inhaler 2 PUFF INHALATION BID Carvedilol (Coreg) 12.5 Mg Tablet 12.5 MG PO BID Cinacalcet (Sensipar) 30 Mg Tablet 30 MG PO DAILY Fluoxetine (Fluoxetine) 20 Mg Capsule 10 MG PO DAILY Furosemide (Furosemide) 40 Mg Tablet 40 MG PO DAILY Pravastatin (Pravastatin) 40 Mg Tablet 40 MG PO DAILY Ropinirole (Ropinirole) 0.5 Mg Tablet 0.5 MG PO TID Sevelamer Carbonate (Renvela) 800 Mg Tablet 800 MG PO TID Warfarin Sodium (Warfarin Sodium) 2.5 Mg Tablet 2.5 MG PO DAILY 2.5 mg wed sat 3.75 mg sun Scheduled PRN Albuterol Sulfate (Proventil HFA Inhaler) 6.7 Gm Hfa.aer.ad 2 PUFF INH Q4 PRN PRN For Shortness of Breath Hydrocodone-Acetaminophen 5-325 mg (Hydrocodone-Acetaminophen 5-325 mg) 1 Each Tablet 1 TABLET PO Q4H PRN PRN For Pain oxyCODONE-Acetaminophen 5-325 mg (oxyCODONE-Acetaminophen 5-325 mg) 1 Each Tablet Unknown Dose PO Q4H PRN PRN For Pain Miscellaneous Medications Fluticasone Propionate (Fluticasone Propionate) 50 Mcg/Actuation [place].susp 15.8 ML NS General Time Seen by MD: 10:56 Chief Complaint Hip injury left Hx Obtained From: Patient Arrived By: Walk-in Onset Occurred: 3 days ago Symptom Duration: Since onset Location: : Hip left Quality: Painful Severity: Current: Moderate Severity: Maximum: Moderate Exacerbated by: Range of motion Similar Sx Previous: No Past Medical History Past Medical History AICD 11/21 Abdominal Aortic Aneurism (DISTAL ABD AORTA-NO U/S SINCE 2009 & PCP IS ARRANGING F/U U/S) Cardiac Surgery (BI V AICD 11/2014) Congestive heart failure, chronic, systolic dysfunction. Echo (04/05/12): LVEF 20-25% with severe global hypokinesis, mild to moderate mitral regurgitation and mild tricuspid regurgitation. Nonischemic cardiomyopathy Edema (mild after extended periods up on his feet) Hypertension Hyperlipidemia Pacemaker Thrombophlebitis (FEET) Valvular Heart Disease (echo 01/2016- ef <20%) COPD ESRD on HD Dyspnea (NUNO) Pneumonia Pulmonary Embolism (HX OF) - On Warfarin Scrotal Mass (S/P HYDROCELECTOMY) Pressure Ulcers (left foot- sees wound care 2xweekly) Anxiety Hx Depression Past Surgical History Appy, tonsils, hydrocele, AMP LT SMALL TOE, AICD, A/V FISTULA/ANGIOPLASTY Family History Noncontributory Smoking History Former Smoker, Smoker Current Status UNK Social History Other Social History: Local resident Ambulatory Status Independent Review of Systems Constitutional: Denies: Chills, Fever Musculoskeletal: Reports: Extremity pain Neurologic: Denies: Change LOC, Dizziness, Headache, Lightheaded, Numbness, Syncope, Weakness Complete sys rev & neg: except as marked. Cardiovascular: Denies: Chest pain, Dyspnea on exertion GI: Denies: Abdominal pain, Nausea, Vomiting Physical Exam Initial Vital Signs Vital Signs (First) Date Time Temp Pulse Resp B/P Pulse Ox O2 Delivery O2 Flow Rate FiO2 01/25/17 10:31 36.5 57 12 106/65 99 Room Air Initial VS: Reviewed, Vital signs normal Head / Eyes: Atraumatic, Normocephalic, PERRL ENT: Mucous membranes moist, Conjunctiva normal, No scleral icterus Neck: Supple, Full range of motion Respiratory: Breath sounds normal, Clear to auscultation, No respiratory distress Cardiovascular: Regular rate & rhythm, Heart sounds normal, Intact distal pulses Abdomen / GI: Soft, Non-tender, No guarding, No rebound, No distention Upper Extremities: Vascular intact, Neuro intact, No swelling, No tenderness Skin: Warm, Dry, No cyanosis Neurologic: Alert, Oriented, Nonfocal Psychiatric: Mood/affect normal, Behavior normal, Normal thought content Lower Extremity / Pelvis / MS: No deformity, Neurologic intact, Vascular intact , No compartment syndrome, Pelvis stable Tender left hip on internal rotation Full range of motion and forward flexion Small contusion over left lateral hip Ankle / Foot: No deformity, Neurologic intact, Vascular intact General/Constitutional: Awake, Alert, No acute distress, Cooperative, Not toxic appearing Interpretation & Diagnostics Interpretation & Diagnostics: CT left hip w/out contrast: IMPRESSION: 1. Acute fracture involving the greater trochanter of the left proximal femur with mild displacement. 2. Diverticulosis. No active diverticulitis. 3. Extensive atherosclerosis. 4. Moderate amount of free fluid in pelvis. Dictated by: Jessica Cárdenas M.D. on 01/25/2017 at 11:58 Approved by: Jessica Cárdenas M.D. on 01/25/2017 at 12:10 Lab Results Interpretation Result Diagram: 01/25/17 1131 Test 01/25/17 11:31 White Blood Count 9.2th/mm3 (3.8-10.1) Red Blood Count 3.27mil/mm3 (4.40-5.80) Hemoglobin 11.6g/dL (13.8-17.2) Hematocrit 35.7% (41.0-50.0) Mean Corpuscular Volume 109.2fL (81-100) Mean Corpuscular Hemoglobin 35.5pg (27.0-35.0) Mean Corpuscular Hemoglobin Concent 32.5% (32.0-37.0) Red Cell Distribution Width 15.5% (12.3-15.4) Platelet Count 90bil/L (150-400) Neutrophils (%) (Auto) 76.4% (40-74) Lymphocytes (%) (Auto) 8.0% (14-46) Monocytes (%) (Auto) 9.1% (4-12) Eosinophils (%) (Auto) 5.8% (0-5) Basophils (%) (Auto) 0.5% (0-3) Prothrombin Time 40.2sec (8.1-12.5) Prothromb Time International Ratio 3.66ratio Hold [place] Top Tube Received (Received) X-Ray Interpretation Xray Interpretation: IMPRESSION: No definite fracture found but mild irregularities are noted at the upper margin of the greater trochanter, and depending on the clinical status followup by MR scanning could be utilized for the most accurate method for detecting hidden fractures. Dictated by: Tho Pink M.D. on 01/25/2017 at 11:54 Approved by: Tho Pink M.D. on 01/25/2017 at 11:56 Study Performed: 2 view X-Ray Ordered: Hip left Interpretation / Wet Read by: Interpret - Radiologist Re-Eval/Medical Decision Med Decision/Clinical Course 66 year old male on warfarin presenting several days post ground-level fall onto left hip. CT confirms a mildly displaced left greater trochanteric hip fracture. Left extremity neurovascular intact. He is ambulatory. Hemoglobin is stable from previous. No sign symptoms anemia. Vital signs stable. Discussed with orthopedics recommending crutches, toe touch weight bearing, call for follow-up with orthopedics next week. Patient will follow up with primary doctor tomorrow for recheck. Hold warfarin today. Return precautions given any sudden symptoms anemia, worsening pain, left lower extremity neurovascular deficits, any other new or worsening symptoms. Patient agreeable with plan. Re-Evaluation/Progress : Time of Eval: 12:35 Re-Evaluation/Progress Note: Pt rechecked. Discussed imaging findigns and ortho consult. Informed pt of plan for treatment. Pt understands and agrees with plan for treatment. F/U instructions and RTER warnings given. All questions addressed. Consultation : Referral / Consult Name: Piyush Gillis MD Consulted With: Orthopedic Call Returned at: 12:31 Cleaning Attendant: Will see in office, Agrees with eval, Agrees with plan Note: Recommends crutches, toe touch weight bearing only, follow-up in clinic in 1 week Counseled Regarding: Diagnosis, Lab results, Need for admission Discharge & Departure Impression: Primary Impression: Fracture of greater trochanter of left femur Encounter type: initial encounter Fracture type: closed Qualified Code: S72.112A - Displaced fracture of greater trochanter of left femur, initial encounter for closed fracture Additional Impression: Fall from ground level Disposition: ADMITTED TO HOSPITAL Discharge Condition All VS Reviewed: Yes Condition: Stable Patient Instructions: Hip Fracture (ED) Additional Instructions: The CT scan today showed a hip fracture that is only mildly displaced, meaning that it is best to take care of this as an outpatient. I spoke with an orthopedic physician today who recommended you be seen in the ortho clinic. Please call the referral number for Dr. Gillis to schedule an appointment. Tell them that he was expecting to see you within 1 week. Use crutches for weight bearing and only use toe-touches. Return to the emergency department for any falls, lightheadedness, dizziness, numbness of your leg, foot, or toes, or for other concerning symptoms. Follow-up with your primary care doctor tomorrow for a recheck. [facility] Christ Velez MD (Family) Piyush Gillis MD Attestation Portions of this note were transcribed by Alex Chicas. I, Dr. Guevara personally performed the history, physical exam and medical decision-making; I reviewed and confirmed the accuracy of the information in the transcribed note. Signed by Marimar London, 01/25/17 - 0980 copies to: [facility]; Piyush Gillis MD, Ben M MD Jan 25, 2017 10:56 ALEX CHICAS Jan 25, 2017 11:19
[2017-01-25 11:46] LABS: BASOPHILS % (AUTO) 0.5 % (0-3); EOSINOPHILS % (AUTO) 5.8 % (0-5); MONOCYTES % (AUTO) 9.1 % (4-12); Mean Corpuscular Hemoglobin 35.5 pg (27.0-35.0); Mean Corpuscular Volume 109.2 fL (81-100); NEUTROPHILS % (AUTO) 76.4 % (40-74); Platelet Count 90 bil/L (150-400)
[2017-01-25 11:55] LABS: INR 3.66 ratio
--- NOTE | 2017-01-25 11:57 | DRSVH ---
PROCEDURE: X-RAY LEFT HIP COMPLETE, MINIMUM TWO VIEWS ([id number]) INDICATIONS: trauma TECHNIQUE: 2 views of the hip were acquired. COMPARISON: None. FINDINGS: Bones: No fractures or dislocations. No suspicious bony lesions. The visualized pelvic ring appear s intact. Mild osseous irregularities are seen at the superior margin of the greater trochanter, chr onicity uncertain but considered more likely chronic than acute. Moderate osteoarthritis is seen at the hip joint is seen laterally. Overlying atherosclerotic calcification is noted crossing through t his area. Soft tissues: No suspicious soft tissue calcifications or masses. IMPRESSION: No definite fracture found but mild irregularities are noted at the upper margin of the g reater trochanter, and depending on the clinical status followup by MR scanning could be utilized for the most accurate method for detecting hidden fractures. Dictated by: Tho Pink M.D. on 01/25/2017 at 11:54 Approved by: Tho Pink M.D. on 01/25/2017 at 11:56
--- NOTE | 2017-01-25 12:12 | DRSVH ---
PROCEDURE: CT HIP LEFT W/O CONTRAST ([id number]) INDICATIONS: Left hip trauma; on Coumadin. TECHNIQUE: Noncontrast 3 mm axial sections acquired through the bony pelvis. Additional 3 mm axial sections acq uired through the symptomatic hip joint, with coronal and sagittal reformats. COMPARISON: [facility], CT, CT ANGIO AORTA RUNOFF, 12/15/2016, 10:39. [facility] ital, CR, XR HIP 2VW LT, 01/25/2017, 11:33. FINDINGS: Image quality: Excellent. Bones: There is an acute fracture involving the greater trochanter of the left proximal femur with mi ld displacement. Soft tissues: No soft tissue hematoma. Mild soft tissue swelling in the left thigh is consistent with mild contusion. There are numerous colonic diverticula in sigmoid colon. Moderate amount of free flu id is present in pelvis. Severe atherosclerosis. IMPRESSION: 1. Acute fracture involving the greater trochanter of the left proximal femur with mild displacement. 2. Diverticulosis. No active diverticulitis. 3. Extensive atherosclerosis. 4. Moderate amount of free fluid in pelvis. Dictated by: Jessica Cárdenas M.D. on 01/25/2017 at 11:58 Approved by: Jessica Cárdenas M.D. on 01/25/2017 at 12:10
[2017-01-25 12:33] VITALS: BP 117/65; PULSE 64; RESP 20; O2SAT 99
[2017-01-25] MEDS ORDERED: HYDR-4003 PO (12:42)
[2017-01-25 13:04] VITALS: BP 117/65; PULSE 64; RESP 20; O2SAT 99
== END 2017-01-25 13:05 | disposition home or self-care (01) ==
LOC: SED 10:14
DX: S72.112A Displaced fracture of greater trochanter of left femur, initial encounter for closed fracture (principal); W18.30XA Fall on same level, unspecified, initial encounter; Y92.009 Unspecified place in unspecified non-institutional (private) residence as the place of occurrence of the external cause; Y93.01 Activity, walking, marching and hiking; Y99.8 Other external cause status; I13.2 Hypertensive heart and chronic kidney disease with heart failure and with stage 5 chronic kidney disease, or end stage renal disease; I50.22 Chronic systolic (congestive) heart failure; N18.6 End stage renal disease; E78.5 Hyperlipidemia, unspecified; J44.9 Chronic obstructive pulmonary disease, unspecified; F41.9 Anxiety disorder, unspecified; F32.9 Major depressive disorder, single episode, unspecified; F17.200 Nicotine dependence, unspecified, uncomplicated; Z86.711 Personal history of pulmonary embolism; Z95.810 Presence of automatic (implantable) cardiac defibrillator; Z99.2 Dependence on renal dialysis; Z87.01 Personal history of pneumonia (recurrent); Z79.01 Long term (current) use of anticoagulants; Z88.8 Allergy status to other drugs, medicaments and biological substances; Z88.1 Allergy status to other antibiotic agents

== ENCOUNTER 2017-02-04 07:48 | Emergency (ER) | payer MEDICARE, OTHER ==
[~2017-02-04] VITALS: Ht 172.7 cm; Wt 68.2 kg
[~2017-02-04 07:48] MED LIST changes: +HYDR-4003 PO
--- NOTE | 2017-02-04 07:49 | ED.REPORT ---
HPI-General Illness Date of Service Feb 04, 2017 ED Provider: The patient is a 66 year old male with history of congestive heart failure s/p AICD, hypertension, hyperlipidemia, COPD, ESRD on HD, PE on warfarin, and recent hip fracture, who was brought to the emergency department by EMS after he had a ground level fall at home just prior to arrival. The patient was walking when he felt "vertigo" and fell backwards. He hit his head on the knob of a dresser and his back on an unknown object. He remembers the entire event and did not lose consciousness. He denies neck pain, chest pain, palpitations or shortness of breath. He is able to ambulate well but has a hard time with stairs. Nursing Notes Stated Complaint: GROUND LEVEL FALL Chief Complaint: Multiple Trauma/Fall Nursing Notes Reviewed: Yes Allergies: Coded Allergies: chlorhexidine (Verified Allergy, Mild, ITCHING, 09/13/16) vancomycin (Verified Allergy, Unknown, 01/11/17) Scheduled Amiodarone (Amiodarone) 200 Mg Tablet 200 MG PO DAILY Budesonide/Formoterol 160-4.5 mcg Inh (Symbicort 160-4.5 mcg Inh) 120 Puff Inhaler 2 PUFF INHALATION BID Carvedilol (Coreg) 12.5 Mg Tablet 12.5 MG PO BID Cinacalcet (Sensipar) 30 Mg Tablet 30 MG PO DAILY Fluoxetine (Fluoxetine) 20 Mg Capsule 10 MG PO DAILY Furosemide (Furosemide) 40 Mg Tablet 40 MG PO DAILY Pravastatin (Pravastatin) 40 Mg Tablet 40 MG PO DAILY Ropinirole (Ropinirole) 0.5 Mg Tablet 0.5 MG PO TID Sevelamer Carbonate (Renvela) 800 Mg Tablet 800 MG PO TID Warfarin Sodium (Warfarin Sodium) 2.5 Mg Tablet 2.5 MG PO DAILY 2.5 mg wed sat 3.75 mg wed Scheduled PRN Albuterol Sulfate (Proventil HFA Inhaler) 6.7 Gm Hfa.aer.ad 2 PUFF INH Q4 PRN PRN For Shortness of Breath Hydrocodone-Acetaminophen 5-325 mg (Hydrocodone-Acetaminophen 5-325 mg) 1 Each Tablet 1 TABLET PO Q4H PRN PRN For Pain oxyCODONE-Acetaminophen 5-325 mg (oxyCODONE-Acetaminophen 5-325 mg) 1 Each Tablet Unknown Dose PO Q4H PRN PRN For Pain Miscellaneous Medications Fluticasone Propionate (Fluticasone Propionate) 50 Mcg/Actuation Meno.susp 15.8 ML NS General Time Seen by MD: 07:49 Chief Complaint Other (ground level fall) Hx Obtained From: Patient, EMS Arrived By: Ambulance Sudden in Onset?: Yes Onset Occurred: Just prior to arrival Symptom Duration: Since onset Caused by: Fall on ground Context: Occurred at: Home injury Location: : Back: Head Severity: Current: Mild Severity: Maximum: Mild Past Medical History Past Medical History AICD 11/21 Abdominal Aortic Aneurism Congestive heart failure, chronic, systolic dysfunction. Hypertension Hyperlipidemia Pacemaker Thrombophlebitis (FEET) Valvular Heart Disease (echo 01/2016- ef <20%) COPD ESRD on HD Dyspnea (NUNO) Pneumonia Pulmonary Embolism (HX OF) - On Warfarin Scrotal Mass (S/P HYDROCELECTOMY) Pressure Ulcers (left foot- sees wound care 2xweekly) Anxiety Hx Depression Past Surgical History Appy, tonsils, hydrocele, AMP LT SMALL TOE, AICD, A/V FISTULA/ANGIOPLASTY Family History Noncontributory Smoking History Former Smoker, Smoker Current Status UNK Social History Other Social History: Local resident Ambulatory Status Independent Review of Systems Full Review of Systems Respiratory: Denies: Shortness of breath Cardiovascular: Denies: Chest pain, Palpitations Musculoskeletal: Reports: Back pain Neurologic: Reports: Headache, Denies: Change LOC, Syncope Complete sys rev & neg: except as marked. Physical Exam Vital Signs Vital Signs Date Time Temp Pulse Resp B/P Pulse Ox O2 Delivery O2 Flow Rate FiO2 02/04/17 11:55 51 15 98/46 100 Room Air 02/04/17 11:01 51 15 98/46 100 02/04/17 10:00 51 16 106/44 100 Room Air 02/04/17 09:43 51 15 109/58 99 Room Air 02/04/17 07:59 36.1 51 20 104/51 100 Room Air Initial VS: Reviewed ENT: Mucous membranes moist, Conjunctiva normal, No scleral icterus Neck: Supple, Non-tender, Full range of motion Respiratory: Breath sounds normal, Clear to auscultation, No respiratory distress Cardiovascular: Regular rate & rhythm, Heart sounds normal, Intact distal pulses Abdomen / GI: Soft, Non-tender, No guarding, No rebound, No distention Lymphatic: No lymphadenopathy Extremities: Vascular intact, Neuro intact, No swelling, No tenderness Skin: Warm, Dry, No cyanosis Neurologic: Alert, Oriented, Nonfocal Psychiatric: Mood/affect normal, Behavior normal, Normal thought content General/Constitutional: Awake, Alert Appearance / Presentation: Positive: Frail Thin Head / Eyes: Normocephalic, PERRL, EOMI Left occipital hematoma with a 0.5 cm laceration Back: No midline vertebral tend Large right flank hematoma Interpretation & Diagnostics Lab Results Interpretation Result Diagram: 02/04/17 0830 02/04/17 0830 Test 02/04/17 08:30 White Blood Count 8.0th/mm3 (3.8-10.1) Red Blood Count 3.02mil/mm3 (4.40-5.80) Hemoglobin 10.7g/dL (13.8-17.2) Hematocrit 32.9% (41.0-50.0) Mean Corpuscular Volume 108.9fL (81-100) Mean Corpuscular Hemoglobin 35.4pg (27.0-35.0) Mean Corpuscular Hemoglobin Concent 32.5% (32.0-37.0) Red Cell Distribution Width 15.1% (12.3-15.4) Platelet Count 118bil/L (150-400) Neutrophils (%) (Auto) 75.2% (40-74) Lymphocytes (%) (Auto) 9.4% (14-46) Monocytes (%) (Auto) 9.5% (4-12) Eosinophils (%) (Auto) 4.9% (0-5) Basophils (%) (Auto) 0.6% (0-3) Prothrombin Time 25.9sec (8.1-12.5) Prothromb Time International Ratio 2.38ratio Sodium Level 135mEq/L (134-144) Potassium Level 3.7mEq/L (3.5-5.2) Chloride Level 92mEq/L (97-108) Carbon Dioxide Level 28mmol/L (18-29) Blood Urea Nitrogen 33mg/dL (8-27) Creatinine 4.35mg/dL (0.76-1.27) Estimat Glomerular Filtration Rate 14mL/min (>59) Glucose Level 93mg/dL (60-99) Calcium Level 7.2mg/dL (8.5-10.1) Magnesium Level 1.4mg/dL (1.6-2.6) Total Bilirubin 1.2mg/dL (0.0-1.2) Aspartate Amino Transf (AST/SGOT) 27U/L (0-50) Alanine Aminotransferase (ALT/SGPT) 18U/L (0-44) Alkaline Phosphatase 118U/L (25-160) Troponin T 0.082ug/L (0.0-0.011) Total Protein 7.2g/dL (6.4-8.4) Albumin 3.2g/dL (3.4-5.0) ECG Interpretation ECG Interpretation: Atrialy-sensed ventricular-paced rhythm Time: 08:19 Interpreted by: ED physician X-Ray Chest Interpretation Chest Xray Interpretation: IMPRESSION: Mild interstitial prominence otherwise no definite acute cardiopulmonary process. Dictated by: Delfino Morales RRA Interpreted: Suze Cooper MD on 02/04/2017 at 8:31 Interpretation / Wet Read by: Interpret - Radiologist CT Head Interpretation IMPRESSION: 1. No acute intracranial hemorrhage. 2. Moderate parenchymal volume loss and mild chronic small vessel ischemic changes. 3. Questionable chronic subdural hygromas, unchanged. 4. Small subgaleal (scalp) hematoma overlying the left parietal region. No underlying fracture. Dictated by: Mitesh Maradiaga M.D. on 02/04/2017 at 8:19 Study: Head CT no contrast Interpretation / Wet Read by: Interpret - Radiologist CT Abd / Pelvis Interpretation IMPRESSION: 1. No evidence of acute hemorrhage/hematoma within the chest, abdomen, or pelvis. 2. No evidence of solid organ injury. 3. Nondisplaced right 10th and 11th medial rib fractures at the costovertebral junctions. No pneumothorax. 4. Tree in bud nodularity within the bilateral lungs (right more than left) may represent very subtle pulmonary contusion/hemorrhage, early infection, or aspiration. Please correlate clinically. 5. Cardiomegaly without overt heart failure. 6. Extensive thoracic and abdominal aortic atherosclerosis with irregular mural thrombus. No dissection is evident. Fusiform aneurysmal dilatation of the abdominal aorta and the common iliac arteries is unchanged. 7. Cirrhotic liver morphology with moderate amount of abdominal/pelvic ascites. No loculated fluid collection. Cholelithiasis is present. 8. Atrophic kidneys. No hydronephrosis. 9. Small to moderate-sized hiatal hernia. 10. Colonic diverticulosis without diverticulitis. 11. Bladder calculi. 12. Centrilobular emphysema. Dictated by: Mitesh Maradiaga M.D. on 02/04/2017 at 8:23 Interpretation / Wet Read by: Interpret - Radiologist Re-Eval/Medical Decision Med Decision/Clinical Course Patient presents after a ground-level fall at home. He states that he had an episode of vertigo which she has had previously. He does not have other signs or symptoms of stroke. Unclear whether this represented hypovolemia, a subtle cerebellar stroke, or other pathology. Patient is insistent on going home. He is feeling better. His pain has been managed with Tylenol while in the ER. His INR is not supratherapeutic. It should be noted that I encouraged and recommended hospitalization and observation and the patient declined. Return and follow-up precautions given Source of Hx: Old records, EMS Time of Eval: 10:11 Re-Evaluation/Progress Note: Rechecked the patient. He is feeling better. Discussed results and plan. Time of Eval: 11:04 Re-Evaluation/Progress Note: The patient passed his road test. Time of Eval: 11:35 Re-Evaluation/Progress Note: Rechecked the patient. He is feeling better. Discussed and strongly recommended admission and observation. The patient is refusing to be admitted. He does agree to make an appointment with his tail dogger. He has dialysis tomorrow. He states that he feels safe going home. Counseled Regarding: Diagnosis, Lab results, Need for follow-up, When/why to return to ED Discharge & Departure Primary Impression: Fall Encounter type: initial encounter Qualified Code: W19.XXXA - Unspecified fall, initial encounter Additional Impression: Rib fractures Encounter type: initial encounter Rib fracture type: multiple ribs Fracture type: closed Laterality: right Qualified Code: S22.41XA - Multiple fractures of ribs, right side, initial encounter for closed fracture Disposition: Home Discharge Condition All VS Reviewed: Yes Condition: Stable Patient Instructions: Fall Prevention for Older Adults (ED), Rib Fracture (ED) Additional Instructions: Thank you for entrusting us with your care today. Your CT scan shows evidence of right fractures on the right side. Use Tylenol as needed for your pain. Make sure to go to your dialysis appointment tomorrow. It is very important to call your tail dogger today and schedule a close followup appointment. Return to the emergency department for increased pain, difficulty breathing, abdominal pain, or any other new or concerning symptoms. Referrals: [facility] (PCP) Christ Velez MD (Family) Andrewibclaudia Attestation Portions of this note were transcribed by Jen Newman. I, Dr. Wade personally performed the history, physical exam and medical decision-making; I reviewed and confirmed the accuracy of the information in the transcribed note. Signed by: Marimar Caicedo, 02/04/2017 at 1200. copies to: Christ Velez MD; [facility] Dilshad Wade DO Feb 04, 2017 07:49 Jen Newman Feb 04, 2017 07:59
[2017-02-04 07:59] VITALS: BP 104/51; PULSE 51; RESP 20; O2SAT 100
--- NOTE | 2017-02-04 08:33 | DRSVH ---
PROCEDURE: X-RAY CHEST ONE VIEW, PORTABLE ([id number]) INDICATIONS: fall, on coumadin right rib pain TECHNIQUE: One view of the chest was acquired. COMPARISON: [facility], CR, XR CHEST 1VW (PORTABLE), 09/13/2016, 13:01. FINDINGS: Surgical changes and devices: Stable position of right chest AICD. Lungs and pleura: No pleural effusions or pneumothorax. Lungs are clear, and interstitium is promin ent. Mediastinum: Mediastinal contours appear normal. Heart size is enlarged. Bones and chest wall: No suspicious bony lesions. Overlying soft tissues appear unremarkable. IMPRESSION: Mild interstitial prominence otherwise no definite acute cardiopulmonary process. Dictated by: Delfino Morales RRA Interpreted: Suze Cooper MD on 02/04/2017 at 8:31 Transcribed by: MARIAN on 02/04/2017 at 8:32 Approved by: Suze Cooper MD, PhD on 02/04/2017 at 9:46
[2017-02-04 08:47] LABS: BASOPHILS % (AUTO) 0.6 % (0-3); EOSINOPHILS % (AUTO) 4.9 % (0-5); MONOCYTES % (AUTO) 9.5 % (4-12); Mean Corpuscular Hemoglobin 35.4 pg (27.0-35.0); Mean Corpuscular Volume 108.9 fL (81-100); NEUTROPHILS % (AUTO) 75.2 % (40-74); Platelet Count 118 bil/L (150-400)
[2017-02-04 08:56] LABS: INR 2.38 ratio
[2017-02-04 09:19] LABS: Magnesium 1.4 mg/dL (1.6-2.6)
[2017-02-04 09:22] LABS: TROPONIN T 0.082 ug/L (0.0-0.011)
--- NOTE | 2017-02-04 09:24 | DRSVH ---
PROCEDURE: CT BRAIN WITHOUT CONTRAST ([id number]) INDICATIONS: fall on coumadin TECHNIQUE: Noncontrast 4.5 mm thick angled axial sections acquired from the foramen magnum to the vertex, with c oronal reformats. COMPARISON: [facility], CT, CT BRAIN WO CON, 09/13/2016, 13:35. FINDINGS: Image quality: Diagnostic. Brain: There is no acute intra-axial or extra-axial hemorrhage. No extra-axial fluid collection is i dentified. The degree of extra-axial fluid within the superior aspect of the supratentorial region i s more than expected and may be related to atrophy. However, chronic subdural hygromas are difficult to exclude. There is no midline shift or mass effect. The orbits are grossly unremarkable. No large areas of diffusely decreased attenuation are evident within the brain to suggest diffuse cer ebral edema. Subtle areas of low attenuation within the periventricular deep white matter are noted. The ventricles and cortical sulci are moderately prominent. Bones: Calvarium and visualized facial bones are grossly intact. The imaged paranasal sinuses and m astoid air cells are clear. Other: There is a moderate-sized subgaleal hematoma identified overlying the posterior left parietal region. No underlying bone fracture is present. IMPRESSION: 1. No acute intracranial hemorrhage. 2. Moderate parenchymal volume loss and mild chronic small vessel ischemic changes. 3. Questionable chronic subdural hygromas, unchanged. 4. Small subgaleal (scalp) hematoma overlying the left parietal region. No underlying fracture. Dictated by: Mitesh Maradiaga M.D. on 02/04/2017 at 8:19 Approved by: Mitesh Maradiaga M.D. on 02/04/2017 at 8:22
--- NOTE | 2017-02-04 09:42 | DRSVH ---
PROCEDURE: CT CHEST, ABDOMEN AND PELVIS WITH CONTRAST ([id number]) INDICATIONS: fall on coumadin, large right flank hematoma TECHNIQUE: After the administration of intravenous contrast, 5 mm thick sections acquired from the lung apices t o the symphysis. 5 mm thick coronal and sagittal reformats were acquired. Additional 7 mm thick cor onal maximum intensity projection (MIP) reformats acquired through the lungs. Optional 10-minute del ayed imaging may be performed from the kidneys to the bladder. For radiation dose reduction, the fol lowing was used: automated exposure control, adjustment of mA and/or kV according to patient size. COMPARISON: [facility], CT, CT ANGIO AORTA RUNOFF, 12/15/2016, 10:39. FINDINGS: Image quality: Diagnostic. CHEST: Lungs: Central lobular emphysematous changes are present within the lung apices. There is tree bud n odularity identified in extending along the inferior margin of the right upper lobe adjacent to the m inor pulmonary fissure. A similar appearance is noted extending along the inferior margin of the rig ht major pulmonary fissure in the posterior aspect of the left lower lobe. No lobar consolidation, l arge effusion, or pneumothorax is evident. There is no lung mass. No definite pulmonary nodules are appreciated. Mediastinum: The heart is enlarged without a pericardial effusion. There is coronary and aortic athe rosclerosis. Extensive irregular thrombus is seen within the thoracic aorta without evidence of diss ection or aneurysm. The main pulmonary arterial trunk is enlarged and measures up to 2.6 cm in trans verse dimension. There is no mediastinal mass. Small mediastinal lymph nodes are present. No muriel lymphadenopathy is evident. There is a small moderate-sized hiatal hernia. The esophagus is otherw ise unremarkable. A cardiac pacer/defibrillator apparatus is incidentally noted overlying the right chest. Chest wall and bones: Nondisplaced medial tendon 11th right rib fractures are identified at the cost overtebral junctions.. No compression deformities of the thoracic spine are present. Age-appropriat e degenerative changes of the thoracic spine are noted. No subcutaneous emphysema. No axillary or s upraclavicular adenopathy. Thyroid gland is not enlarged. ABDOMEN: Solid organs: There is a nodular appearance to the liver. No definite arterial phase enhancing lesi ons of the liver are identified. A gallstone is seen within the gallbladder. Moderate perihepatic f luid is identified within the peritoneal cavity. The spleen is normal in size. Perisplenic fluid is evident. The right kidney is markedly atrophic and demonstrates extensive degenerative cystic kumar e with scattered calcifications. No hydronephrosis is evident. The left kidney is small in size, bu t demonstrates normal enhancement characteristics without hydronephrosis. No solid renal lesions are evident. There is non-masslike prominence of the bilateral adrenal glands. The pancreas is normal in size. Peritoneum and bowel: There is a small to moderate-sized hiatal hernia. Otherwise, stomach, duodenum , and remainder of the small bowel loops are nondilated. Moderate residual stool is present within t he colon. There is moderate distal colonic diverticulosis without definite inflammation to suggest a cute diverticulitis. No complete bowel obstruction is evident. There is a moderate amount of abdomi nal and pelvic ascites. No drainable or loculated fluid collections are identified. Scattered areas of mesenteric edema are noted, particularly within the root of the mesentery. No free air is seen. Nodes and vessels: No retroperitoneal or mesenteric adenopathy. Aorta and inferior vena cava are no rmal in size and enhancement. Extensive atherosclerotic irregularity with irregular mural thrombus i s noted involving the abdominal aorta and the origins of the mesenteric/renal arteries. No dissectio n is identified. Ectasia of the abdominal aorta is present. There is mild infrarenal abdominal aort ic aneurysm measuring up to 3.2 cm, unchanged since prior study. Aneurysmal dilatation of the bilate ral common iliac arteries also is present. Otherwise, extensive atherosclerosis of the iliac arterie s is evident. Bones : No acute compression fractures are present involving the lumbar spine. No suspicious osseous lesions are identified. There are no acute fractures. Age-appropriate degenerative changes of the spine are noted. PELVIS: Genitourinary: The urinary bladder is decompressed and subsequently not adequately evaluated. There may be a few calculi within the bladder. The prostate is slightly prominent in size. Miscellaneous: A few borderline prominent bilateral inguinal lymph nodes are identified. No muriel ly mphadenopathy is seen. No pelvic lymphadenopathy is evident. There is moderate amount of pelvic asc ites. No drainable or loculated fluid collections are present. Bones: Pelvic ring and hip joints appear intact. No suspicious osseous lesions are present. No acu te pelvic fractures are identified. There mild to moderate degenerative changes of the sacroiliac smitha ints and bilateral hips. IMPRESSION: 1. No evidence of acute hemorrhage/hematoma within the chest, abdomen, or pelvis. 2. No evidence of solid organ injury. 3. Nondisplaced right 10th and 11th medial rib fractures at the costovertebral junctions. No pneumo thorax. 4. Tree in bud nodularity within the bilateral lungs (right more than left) may represent very subtl e pulmonary contusion/hemorrhage, early infection, or aspiration. Please correlate clinically. 5. Cardiomegaly without overt heart failure. 6. Extensive thoracic and abdominal aortic atherosclerosis with irregular mural thrombus. No dissec tion is evident. Fusiform aneurysmal dilatation of the abdominal aorta and the common iliac arteries is unchanged. 7. Cirrhotic liver morphology with moderate amount of abdominal/pelvic ascites. No loculated fluid collection. Cholelithiasis is present. 8. Atrophic kidneys. No hydronephrosis. 9. Small to moderate-sized hiatal hernia. 10. Colonic diverticulosis without diverticulitis. 11. Bladder calculi. 12. Centrilobular emphysema. Dictated by: Mitesh Maradiaga M.D. on 02/04/2017 at 8:23 Approved by: Mitesh Maradiaga M.D. on 02/04/2017 at 8:40
[2017-02-04 09:43] VITALS: BP 109/58; PULSE 51; RESP 15; O2SAT 99
[2017-02-04 10:00] VITALS: BP 106/44; PULSE 51; RESP 16; O2SAT 100
[2017-02-04 11:01] VITALS: BP 98/46; PULSE 51; RESP 15; O2SAT 100
[2017-02-04 11:55] VITALS: BP 98/46; PULSE 51; RESP 15; O2SAT 100
== END 2017-02-04 11:57 | disposition home or self-care (01) ==
LOC: SED 07:48
DX: S22.41XA Multiple fractures of ribs, right side, initial encounter for closed fracture (principal); S01.01XA Laceration without foreign body of scalp, initial encounter; S30.1XXA Contusion of abdominal wall, initial encounter; W18.39XA Other fall on same level, initial encounter; Y93.89 Activity, other specified; Y92.009 Unspecified place in unspecified non-institutional (private) residence as the place of occurrence of the external cause; Y99.8 Other external cause status; I13.2 Hypertensive heart and chronic kidney disease with heart failure and with stage 5 chronic kidney disease, or end stage renal disease; I50.9 Heart failure, unspecified; N18.6 End stage renal disease; J44.9 Chronic obstructive pulmonary disease, unspecified; F41.9 Anxiety disorder, unspecified; E78.5 Hyperlipidemia, unspecified; Z87.01 Personal history of pneumonia (recurrent); Z99.2 Dependence on renal dialysis; Z95.810 Presence of automatic (implantable) cardiac defibrillator; Z79.01 Long term (current) use of anticoagulants; Z87.891 Personal history of nicotine dependence; Z88.1 Allergy status to other antibiotic agents; Z88.8 Allergy status to other drugs, medicaments and biological substances
CPT/HCPCS: 36415; 70450; 71010; 71260; 74177; 80053; 82948; 83735; 84484; 85025; 85610; 93005; 99285; Q9967

== ENCOUNTER 2017-02-08 13:20 | Inpatient (IN) | payer MEDICARE, OTHER ==
[2017-02-08] VITALS (13 sets, daily range): BP systolic 97–184; BP diastolic 47–98; PULSE 50–65; RESP 12–20; O2SAT 97–100
[~2017-02-08] VITALS: Ht 182.9 cm; Wt 77.5 kg
--- NOTE | 2017-02-08 13:34 | ED.REPORT ---
HPI-General Illness Date of Service Feb 08, 2017 ED Provider: Sherwin Ayala MD Patient is a 66 year old male with a hx of COPD, CHF, AAA, HTN, ESRD on HD, and PE on Warfarin who presents to the ED via EMS s/p having runs of V-tach accompanied by feeling lightheaded just prior to dialysis today. He believes he may have lost consciousness. On his way to the ED, his defibrillator went off and put him back in a paced rhythm after which he regained consciousness. He denies chest pain, new SOB, or any other symptoms. He gets dialysis on Wednesday, Wednesday, and Wednesday. During history taking the patient reported feeling lightheaded at which time he was again noted to be in ventricular tachycardia on the monitor however this lasted several seconds before spontaneously going back to a paced rhythm. Nursing Notes Stated Complaint: RAPID HEART RATE Chief Complaint: Dysrhythmia/Cardiac Nursing Notes Reviewed: Yes Allergies: Coded Allergies: chlorhexidine (Verified Allergy, Mild, ITCHING, 09/13/16) vancomycin (Verified Allergy, Unknown, 01/11/17) Scheduled Amiodarone (Amiodarone) 200 Mg Tablet 200 MG PO DAILY Budesonide/Formoterol 160-4.5 mcg Inh (Symbicort 160-4.5 mcg Inh) 120 Puff Inhaler 2 PUFF INHALATION BID Carvedilol (Coreg) 12.5 Mg Tablet 12.5 MG PO BID Cinacalcet (Sensipar) 30 Mg Tablet 30 MG PO DAILY Fluoxetine (Fluoxetine) 20 Mg Capsule 10 MG PO DAILY Furosemide (Furosemide) 40 Mg Tablet 40 MG PO DAILY Pravastatin (Pravastatin) 40 Mg Tablet 40 MG PO DAILY Ropinirole (Ropinirole) 0.5 Mg Tablet 0.5 MG PO TID Sevelamer Carbonate (Renvela) 800 Mg Tablet 800 MG PO TID Warfarin Sodium (Warfarin Sodium) 2.5 Mg Tablet 2.5 MG PO DAILY 2.5 mg wed 3.75 mg wed Scheduled PRN Albuterol Sulfate (Proventil HFA Inhaler) 6.7 Gm Hfa.aer.ad 2 PUFF INH Q4 PRN PRN For Shortness of Breath Hydrocodone-Acetaminophen 5-325 mg (Hydrocodone-Acetaminophen 5-325 mg) 1 Each Tablet 1 TABLET PO Q4H PRN PRN For Pain oxyCODONE-Acetaminophen 5-325 mg (oxyCODONE-Acetaminophen 5-325 mg) 1 Each Tablet Unknown Dose PO Q4H PRN PRN For Pain Miscellaneous Medications Fluticasone Propionate (Fluticasone Propionate) 50 Mcg/Actuation [place].susp 15.8 ML NS General Time Seen by MD: 13:33 Chief Complaint Other (V-tach ) Hx Obtained From: Patient, EMS Arrived By: Ambulance Sudden in Onset?: Yes Onset Occurred: Just prior to arrival Past Medical History Past Medical History AICD 11/21 Abdominal Aortic Aneurism Congestive heart failure, chronic, systolic dysfunction. Hypertension Hyperlipidemia Pacemaker Thrombophlebitis (FEET) Valvular Heart Disease (echo 01/2016- ef <20%) COPD ESRD on HD Dyspnea (NUNO) Pneumonia Pulmonary Embolism (HX OF) - On Warfarin Scrotal Mass (S/P HYDROCELECTOMY) Pressure Ulcers (left foot- sees wound care 2xweekly) Anxiety Hx Depression Past Surgical History Appy, tonsils, hydrocele, AMP LT SMALL TOE, AICD, A/V FISTULA/ANGIOPLASTY tunnel hemodialysis catheter Family History Noncontributory Smoking History Former Smoker Social History Other Social History: Local resident Ambulatory Status Independent Review of Systems +V-tach Full Review of Systems Respiratory: Denies: Shortness of breath Cardiovascular: Denies: Chest pain Neurologic: Reports: Lightheaded, Syncope Complete sys rev & neg: except as marked. Physical Exam Vital Signs Vital Signs Date Time Temp Pulse Resp B/P Pulse Ox O2 Delivery O2 Flow Rate FiO2 02/08/17 14:57 54 13 100/67 98 Room Air 02/08/17 14:21 65 16 113/59 100 02/08/17 13:41 57 12 112/63 99 Room Air 02/08/17 13:27 36.5 58 12 184/98 99 Room Air Initial VS: Reviewed Neck: Full range of motion Skin: Warm, Dry Psychiatric: Mood/affect normal, Behavior normal, Normal thought content Head / Eyes: Normocephalic Well healing abrasion on the L occipital scalp that was previously evaluated. Respiratory / Chest: Breath sounds NL, Breath sounds = bilat, No respiratory distress AICD L anterior chest wall Cardiovascular: Heart rate NL, Regular rhythm, Heart sounds NL, No gallop, No murmurs, No rubs Upper Extremities Upper Extremity / MS: Inspection NL L forearm dialysis fistula Lower Extremity / Pelvis / MS: Atraumatic Pitting edema of bilat LE extending 2/3 up to the knees Dressings on bilat feet. Neurologic: Oriented X3, Speech NL Answering questions appropriately. Interpretation & Diagnostics Lab Results Interpretation Result Diagram: 02/08/17 1330 02/08/17 1330 Test 02/08/17 13:30 White Blood Count 10.4th/mm3 (3.8-10.1) Red Blood Count 3.37mil/mm3 (4.40-5.80) Hemoglobin 12.1g/dL (13.8-17.2) Hematocrit 36.5% (41.0-50.0) Mean Corpuscular Volume 108.3fL (81-100) Mean Corpuscular Hemoglobin 35.9pg (27.0-35.0) Mean Corpuscular Hemoglobin Concent 33.2% (32.0-37.0) Red Cell Distribution Width 15.8% (12.3-15.4) Platelet Count 132bil/L (150-400) Neutrophils (%) (Auto) 80.5% (40-74) Lymphocytes (%) (Auto) 7.1% (14-46) Monocytes (%) (Auto) 9.3% (4-12) Eosinophils (%) (Auto) 2.2% (0-5) Basophils (%) (Auto) 0.4% (0-3) Sodium Level 127mEq/L (134-144) Potassium Level 4.9mEq/L (3.5-5.2) Chloride Level 84mEq/L (97-108) Carbon Dioxide Level 21mmol/L (18-29) Blood Urea Nitrogen 56mg/dL (8-27) Creatinine 6.58mg/dL (0.76-1.27) Estimat Glomerular Filtration Rate 9mL/min (>59) Glucose Level 78mg/dL (60-99) Calcium Level 7.0mg/dL (8.5-10.1) Magnesium Level 1.6mg/dL (1.6-2.6) Total Bilirubin 1.5mg/dL (0.0-1.2) Aspartate Amino Transf (AST/SGOT) 21U/L (0-50) Alanine Aminotransferase (ALT/SGPT) 14U/L (0-44) Alkaline Phosphatase 125U/L (25-160) Troponin T 0.069ug/L (0.0-0.011) Total Protein 7.4g/dL (6.4-8.4) Albumin 3.2g/dL (3.4-5.0) ECG Interpretation ECG Interpretation: atrial sensed ventricular paced rhythm with a rate of 58 no changes from prior Time: 13:34 Interpreted by: ED physician Re-Eval/Medical Decision Med Decision/Clinical Course Patient is a 66 year old male with a hx of COPD, CHF, AAA, HTN, ESRD on HD, and PE on Warfarin who presents to the ED via EMS s/p having runs of V-tach accompanied by feeling lightheaded just prior to dialysis today. He believes he may have lost consciousness. On his way to the ED, his defibrillator went off and put him back in a paced rhythm after which he regained consciousness. He denies chest pain, new SOB, or any other symptoms. He gets dialysis on Wednesday, Wednesday, and Wednesday. During history taking the patient reported feeling lightheaded at which time he was again noted to be in ventricular tachycardia on the monitor however this lasted several seconds before spontaneously going back to a paced rhythm. In the emergency department the patient was intermittently going in and out of ventricular paced rhythm versus ventricular tachycardia during which time he reported feeling very lightheaded and presyncopal. He was placed on continuous cardiac monitoring and pulse oximetry. Pacing pads were placed. Patient was discussed with cardiology and started on amiodarone bolus plus infusion. EKG: atrial sensed ventricular paced rhythm with a rate of 58 no changes from prior Laboratory studies notable as below: leukocytosis 10.4 hematocrit 36.5 BUN 56 creat 6.58 K4.9 Na127 trop.069 Chest x-ray demonstrated no acute cardiopulmonary process. After initiation of amiodarone bolus and infusion frequency and duration of ventricular tachycardia decreased. The patient's elevated troponin is difficult to interpret in the setting of being on hemodialysis with end-stage renal disease as well as the fact that he has had multiple runs of ventricular tachycardia likely causing some degree of them and ischemia. We will trend his troponin. Patient was discussed with admitting hospitalist and admitted to the ICU in consultation with cardiology for further management of his ventricular tachycardia. He has missed his hemodialysis today and will likely require hemodialysis during this admission as well. He was transferred in stable but guarded condition. Time of Eval: 13:50 Re-Evaluation/Progress Note: Discussed plan for admission. Patient understands and agrees with plan. All questions addressed at this time. Consultation #1: Referral / Consult Name: Jaime Kaur MD Consulted With: Cardiology Call Returned at: 13:47 Director Voice: Agrees with eval, Agrees with plan Note: Discussed pt's case. Requests pt be admitted. Will notify pt's spiral binder. Consultation #2: Referral / Consult Name: Shin Walker MD Consulted With: Hospitalist Call Returned at: 14:27 Director Voice: Will see patient, Agrees with eval, Agrees with plan, Accepts admit Note: Discussed pt's case. Accepts admit. Counseled Regarding: Diagnosis, Lab results, Need for admission Discharge & Departure Primary Impression: Ventricular tachycardia Additional Impressions: Syncope Syncope type: unspecified Qualified Code: R55 - Syncope and collapse Lightheadedness End stage renal disease Hyponatremia Hemodialysis patient Disposition: ADMITTED TO HOSPITAL Discharge Condition All VS Reviewed: Yes Condition: Stable Referrals: [facility] (PCP) Christ Velez MD (Family) Crit Care Except Billable Proc Time Spent: 105-134 minutes Services Performed: Patient management by me, Time spent at bedside, Reviewing test results, Reviewing imaging, Discussing patient care, Documentation in record, Time with fam/surrogate Scribe Attestation Portions of this note were transcribed by Maria Esther Swift. I, Dr. Ayala personally performed the history, physical exam and medical decision-making; I reviewed and confirmed the accuracy of the information in the transcribed note. Signed by: Maria Esther Swift 02/08/17, 1430 copies to: Christ Velez MD; [facility] Sherwin Ayala MD Feb 08, 2017 13:34 MARIA ESTHER SWIFT Feb 08, 2017 14:05
[2017-02-08 13:50] LABS: BASOPHILS % (AUTO) 0.4 % (0-3); EOSINOPHILS % (AUTO) 2.2 % (0-5); MONOCYTES % (AUTO) 9.3 % (4-12); Mean Corpuscular Hemoglobin 35.9 pg (27.0-35.0); Mean Corpuscular Volume 108.3 fL (81-100); NEUTROPHILS % (AUTO) 80.5 % (40-74); Platelet Count 132 bil/L (150-400)
[2017-02-08] MEDS ORDERED: Ondansetron 2 mg/mL 2 mL Inj IVPUSH PRN ×2 (13:55→15:15)
[2017-02-08] MEDS ORDERED: Alum-Mag Hydrox-Simeth 30 mL Suspension PO PRN ×2 (13:55→15:15)
[2017-02-08 14:13] LABS: Magnesium 1.6 mg/dL (1.6-2.6)
[2017-02-08 14:17] LABS: TROPONIN T 0.069 ug/L (0.0-0.011)
[2017-02-08] MEDS ORDERED: Amiodarone 150 mg/100 mL D5W 150 MG in IV Premix 1 EACH IV ONE (14:25)
[2017-02-08] MEDS ORDERED: Amiodarone 150 mg/100 mL D5W Premix IV ONE (14:29)
[2017-02-08] MEDS: Amiodarone 360 mg/200 mL D5W 360 MG, Filter, Taxol 14256-28 1 EACH in IV Premix 1 EACH IV SCH ×3 (14:50→20:53)
[2017-02-08] MEDS ORDERED: Polyethylene Glycol (PEG) 17 Gm Powder PO PRN (15:15)
[2017-02-08] MEDS ORDERED: CARV12.52 PO (15:15)
[2017-02-08] MEDS ORDERED: FLUO10TA PO (15:15)
--- NOTE | 2017-02-08 15:17 | DRSVH ---
PROCEDURE: X-RAY CHEST ONE VIEW, PORTABLE ([id number]) INDICATIONS: CHEST PAIN TECHNIQUE: One view of the chest was acquired. COMPARISON: [facility], CR, XR CHEST 1VW (PORTABLE), 02/04/2017, 8:00. FINDINGS: Surgical changes and devices: Right chest wall AICD and leads appear similar in position. There is a n overlying external defibrillator pad. Lungs and pleura: No pleural effusions or pneumothorax. The visualized lungs are clear. Mediastinum: Mediastinal contours appear normal. Heart size is at the upper limits of normal. Bones and chest wall: No suspicious bony lesions. Overlying soft tissues appear unremarkable. IMPRESSION: 1. No acute cardiopulmonary disease. Dictated by: Reid Lambert M.D. on 02/08/2017 at 15:09 Approved by: Reid Lambert M.D. on 02/08/2017 at 15:16
[2017-02-08] MEDS ORDERED: WARF3TAB7 PO (15:25)
[2017-02-08] MEDS ORDERED: ROPI0.5T2 PO (15:25)
[2017-02-08] MEDS ORDERED: WARF2.5T82 PO (15:25)
[2017-02-08] MEDS ORDERED: LISI10TA PO (15:25)
[2017-02-08] MEDS ORDERED: CALC500T9 PO (15:25)
[2017-02-08] MEDS ORDERED: ALBU2.5V4 INHALATION (15:27)
--- NOTE | 2017-02-08 16:25 | PCM.HPMED ---
Subjective Date of Service Feb 08, 2017 Primary Provider: Admitting Physician: Primary Care Physician: [facility] Attending Physician: Chief Complaint: Ventricular tachycardia History of Present Illness: Bob Arenas is a 66 year old with past medical history significant for COPD, heart failure with reduced EF status post biventricular pacemaker and AICD, ESRD on HD MWF, and PE on Warfarin who presented to the [facility] ED via EMS from dialysis due to ventricular tachycardia and near-syncopal episode. The patient was admitted to [facility] in September of 2016 due to the same complaint. He does not feel when his AICD goes off. The patient noted that last admission he had a complete loss of consciousness. At his last visit his beta jacinto dose was increased. Per ED report his AICD went off, however upon interrogation there was no electrical discharge. The patient denies any chest pain, shortness of breath or any major changes. The patient did fall 2 weeks and has a hairline fracture of his left humerus and is seeing orthopedics for this. He was also seen today by podiatry for a likely foot infection and prescribed antibiotics. He has not picked these up yet. Per ED report during history taking the patient reported feeling lightheaded at which time he was again noted to be in ventricular tachycardia on the monitor however this lasted several seconds before spontaneously going back to a paced rhythm. Dr. Velez of cardiology was contacted to interrogate his pacemaker. Dr. Daly of nephrology was contacted for dialysis. Review of Systems: A comprehensive review of systems was performed and is negative except as noted above. Allergies Coded Allergies: chlorhexidine (Verified Allergy, Mild, ITCHING, 09/13/16) vancomycin (Verified Adverse Reaction, Severe, NAUSEA/VOMITTING, 02/08/17) Home Medications Discharge Medications Amiodarone (Amiodarone) 200 Mg Tablet 200 MG PO DAILY (Reported) Budesonide/Formoterol 160-4.5 mcg Inh (Symbicort 160-4.5 mcg Inh) 120 Puff Inhaler 2 PUFF INHALATION BID (Reported) Carvedilol (Coreg) 12.5 Mg Tablet 12.5 MG PO BID Prescribed by: SHIN LANDEROS MD Cholecalciferol (Vitamin D3) (Vitamin D3) 1,000 Unit Tab.chew 1,000 UNIT PO DAILY (Reported) Doxycycline Hyclate (Doxycycline Hyclate) 100 Mg Tablet 100 MG PO BID Prescribed by: SHIN LANDEROS MD Fluoxetine (Fluoxetine) 20 Mg Capsule 20 MG PO DAILY (Reported) Furosemide (Furosemide) 40 Mg Tablet 40 MG PO DAILY (Reported) Lisinopril (Lisinopril) 10 Mg Tablet 10 MG PO DAILY (Reported) Potassium Chloride ER (Potassium Chloride ER) 8 Meq Tablet 8 MEQ PO DAILY ( Reported) TAKE WITH FOOD Pravastatin (Pravastatin) 40 Mg Tablet 40 MG PO DAILY (Reported) Ropinirole (Ropinirole) 0.5 Mg Tablet 0.5 MG PO TID (Reported) Vitamin D3/Vitamin K2 (Mk4) (K2 Plus D3 Tablet) 1,000 Unit-100 Mcg Tablet 1 EACH PO DAILY (Reported) As needed Albuterol Sulfate (Proventil HFA Inhaler) 6.7 Gm Hfa.aer.ad 2 PUFF INH Q4 PRN PRN For Shortness of Breath (Reported) H AICD 11/21 Abdominal Aortic Aneurism Congestive heart failure, chronic, systolic dysfunction. Hypertension Hyperlipidemia Pacemaker Thrombophlebitis (FEET) Valvular Heart Disease (echo 01/2016- ef <20%) COPD ESRD on HD Pneumonia Pulmonary Embolism - On Warfarin Pressure Ulcers (left foot- sees wound care 2xweekly) Anxiety/Depression Surgical History Appendectomy Hydrocele resection, Amputation of left foot digit AICD placement A/V fistula Tunnel catheter hemodialysis catheter Family History No history of PR Social History Hx Alcohol Use: No Hx Substance Use: No Hx Tobacco Use: Yes Smoking Status: Former Smoker Exam Vital Signs Vital Sign - Last Date Time Temp Pulse Resp B/P Pulse Ox O2 Delivery O2 Flow Rate FiO2 02/08/17 14:57 54 13 100/67 98 Room Air 02/08/17 13:27 36.5 Exam General: Alert, Oriented X3, Cooperative, in no acute distress Head: Normocephalic, atraumatic. External ears normal. Eyes: PERRLA, EOMI. Anicteric sclerae. Subconjunctival hemorrhage of left eye. Mouth: Mouth normal, Mucous membranes moist/pink. Neck: Neck supple with full range of motion. no JVD noted Chest& Lungs: Expiratory wheeze noted at bilateral bases. Normal respiratory effort. Cardiovascular: Regular rate and rhythm, Normal S1, Normal S2, No murmurs/rubs/ gallops Abdomen: Non-tender, Non-distended, No masses, Normoactive bowel tones, Soft Musculoskeletal: Tender left hip, spontaneous left hip spasms. Extremities: left foot with toe amputation wrapped in bandages, right foot wrapped in bandages. Venous statis bilaterally. Neurological: Normal speech. Cranial nerves II through XII intact bilaterally. Moves all extremities spontaneously with equal strength. Skin: multiple small tears on the skin, thin fragile skin Lab and Diagnostics Result Diagram: 02/08/17 1330 02/08/17 1330 Assessment & Plan Bob Arenas is a 66 year old with past medical history significant for COPD, heart failure with reduced EF status post biventricular pacemaker and AICD, ESRD on HD MWF, and PE on Warfarin who presented to the [facility] ED via EMS from dialysis due to ventricular tachycardia and near-syncopal episode. The patient was admitted to [facility] in September of 2016 due to the same complaint. Ventricular tachycardia in the setting of heart failure with severely reduced EF status post bi-ventricular pacer with AICD placement -Cardiology consulted, appreciate time and expertise -No shocks delivered -Amiodarone load for 24 hours with increase of PO amiodarone to 400 mg BID x7 days -Monitor on telemetry. Monitor electrolytes. -Elevated troponin likely from demand ischemia -Continue carvedilol. End-stage renal disease, on hemodialysis every Wednesday, Wednesday, and Wednesday. -Dr. Daly consulted, appreciate time and expertise -Dialysis today -Continue Lasix and potassium Soft tissue infection, without history of MRSA -Doxycycline 100 mg PO BID History of hypertension. -Continue lisinopril History of chronic obstructive pulmonary disease, not in exacerbation -Continue Symbicort -Levalbuterol nebulizer PRN History of hyperlipidemia -Continue statin Chronic atrial fibrillation. Restless leg syndrome -Continue ropinirole History of pulmonary embolism on Warfarin -Continue Warfarin per pharmacy CODE STATUS: FULL CODE, as long as he is not in a vegitative state. Patient is admitted under inpatient status with anticipated length of stay >2 midnight due to severity of symptoms, complicated treatment plan, and possibility for deterioration. Time spent 50 minutes Attending Statement Patient seen and examined. With house staff. Agree with all attached documentation. Joie Quintanilla DO Feb 08, 2017 15:17 Shin Landeros MD Feb 09, 2017 13:27
[2017-02-08 16:40] LABS: INR 2.51 ratio
--- NOTE | 2017-02-08 17:06 | PCM.CONPHA ---
Subjective Date of Service: Feb 08, 2017 Ventricular tachycardia Reason for Pharmacy Consult: Anticoagulation Management Objective Vital Signs Date Time Temp Pulse Resp B/P Pulse Ox O2 Delivery O2 Flow Rate FiO2 02/08/17 16:22 50 02/08/17 16:21 50 02/08/17 15:45 50 15 98/56 98 Room Air 02/08/17 15:15 53 15 100/55 99 Room Air 02/08/17 14:57 54 13 100/67 98 Room Air 02/08/17 14:21 65 16 113/59 100 02/08/17 13:41 57 12 112/63 99 Room Air 02/08/17 13:27 36.5 58 12 184/98 99 Room Air Weight (Kilograms): 80.6 Height (Feet): 6 Height (Inches): 0 Test 02/08/17 13:30 White Blood Count 10.4th/mm3 (3.8-10.1) Red Blood Count 3.37mil/mm3 (4.40-5.80) Hemoglobin 12.1g/dL (13.8-17.2) Hematocrit 36.5% (41.0-50.0) Mean Corpuscular Volume 108.3fL (81-100) Mean Corpuscular Hemoglobin 35.9pg (27.0-35.0) Mean Corpuscular Hemoglobin Concent 33.2% (32.0-37.0) Red Cell Distribution Width 15.8% (12.3-15.4) Platelet Count 132bil/L (150-400) Neutrophils (%) (Auto) 80.5% (40-74) Lymphocytes (%) (Auto) 7.1% (14-46) Monocytes (%) (Auto) 9.3% (4-12) Eosinophils (%) (Auto) 2.2% (0-5) Basophils (%) (Auto) 0.4% (0-3) Prothrombin Time 27.4sec (8.1-12.5) Prothromb Time International Ratio 2.51ratio Sodium Level 127mEq/L (134-144) Potassium Level 4.9mEq/L (3.5-5.2) Chloride Level 84mEq/L (97-108) Carbon Dioxide Level 21mmol/L (18-29) Blood Urea Nitrogen 56mg/dL (8-27) Creatinine 6.58mg/dL (0.76-1.27) Estimat Glomerular Filtration Rate 9mL/min (>59) Glucose Level 78mg/dL (60-99) Calcium Level 7.0mg/dL (8.5-10.1) Magnesium Level 1.6mg/dL (1.6-2.6) Total Bilirubin 1.5mg/dL (0.0-1.2) Aspartate Amino Transf (AST/SGOT) 21U/L (0-50) Alanine Aminotransferase (ALT/SGPT) 14U/L (0-44) Alkaline Phosphatase 125U/L (25-160) Troponin T 0.069ug/L (0.0-0.011) Total Protein 7.4g/dL (6.4-8.4) Albumin 3.2g/dL (3.4-5.0) Thyroid Stimulating Hormone (TSH) 4.050uIU/mL (0.450-4.500) Free Thyroxine 1.42ng/dL (0.82-1.77) Assessment/Plan Assessment/Plan Warfarin management per pharmacy Indication: history of PE on warfarin Goal INR: 2-3 Home warfarin dose: 3.75 mg on Wed/Tu, 2.5 mg on all other days of the week. Pertinent information: - Patient takes amiodarone 200 mg PO daily at home. - Patient received amiodarone 150 mg and 360 mg IV drip in ED for ventricular tachycardia. - Per Dr. Quintanilla's note, patient to receive amiodarone 400 mg PO BID x7 days. - INR today is 2.51 Increase in amiodarone dose may cause increase in warfarin sensitivity. However , as patient takes amiodarone PO at home, it is difficult to say the extent to which it will affect the INR. As current trend is unclear, will dose conservatively. Give warfarin 1.5 mg PO one time today. Serial INRs have been ordered. Pharmacy to continue to monitor and dose warfarin daily. Thank you, La Dean Feb 08, 2017 17:06
--- NOTE | 2017-02-08 18:05 | NUR ---
Admit Pt arrived in until about 1615 in stable condition. Able to transfer SBA from [facility] to bed, denies any dizziness, SOB or chest pain. On amiodarone gtt, bolus dose given in ER. hospital administrative assistant here and started right away. TELE 100% paced in the 50-60s, 100% on RA. Frequent rounding continues. Pt able to tolerate PO, no nausea or vomiting. Wound care notified he is inpatient, David to notify Dr Cochran, who has been seeing him for chronic wounds.
--- NOTE | 2017-02-08 18:45 | CONS ---
[address] [address] CONSULTATION REPORT PATIENT: DANISHA BAI : 1950 MR#: [id number] ADMIT: 02/08/2017 JOB ID: [id number] DATE OF SERVICE: REQUESTING PHYSICIAN: Dr. Ayala. CHIEF COMPLAINT: Lightheadedness. PRESENT ILLNESS: This is a 66-year-old male with significant past medical history of end-stage renal disease, on hemodialysis every Wednesday, Wednesday, and Wednesday, nonischemic cardiomyopathy with ejection fraction 20% to 25%, status post AICD placement, chronic atrial fibrillation, hypertension, who was brought to the emergency room by the EMS after found to have V-tach and feeling lightheaded. Today, at the dialysis clinic, patient was complaining of lightheadedness. He was put on the monitor and was found to have short run of V-tach. Therefore, dialysis staff called EMS and patient was brought to the emergency department. En route to the ER, his defibrillator went off and the rhythm returned to paced rhythm. His mentation has improved also. His initial vitals were blood pressure of 113/59, heart rate of 65, respiratory of 16, pulse ox 100% on room air. During my visit, he is in paced rhythm. He does not have any chest pain, shortness of breath or lightheaded at the moment. The AICD and pacemaker is now being interrogated. Renal service was consulted to resume dialysis while he is hospitalized. The initial chemistry showed sodium of 127, potassium of 4.9, chloride of 84, bicarb 21, BUN of 56, creatinine of 6.58. Troponin of 0.069. He is a patient of Dr. Kohler and Dr. Arellano. He is dialyzed every Wednesday, Wednesday, and Wednesday at the [facility]. His hemodialysis access is AV fistula. PAST MEDICAL HISTORY: 1. Previous hospitalization in September 2016 due to loss of consciousness secondary to V-tach. 2. End-stage renal disease, on hemodialysis every Wednesday, Wednesday, and Wednesday. 3. Nonischemic cardiomyopathy with ejection fraction 20% to 25%, status post biventricular AICD. 4. Hypertension. 5. Dyslipidemia. 6. Atrial fibrillation, status post pacemaker placement. 7. COPD. 8. Pulmonary embolism. 9. Anemia in chronic kidney disease. 10. Depression. PAST SURGICAL HISTORY: Status post AV fistula creation, status post AICD placement, status post appendectomy, status post hydrocelectomy, status post tonsillectomy, status post amputation of toe. Peripheral vascular disease and nonhealing wound. ALLERGIES: 1. CHLORHEXIDINE. 2. VANCOMYCIN. SOCIAL HISTORY: Patient is a former smoker. He drinks rarely. Denies using illicit drugs. FAMILY HISTORY: Noncontributory. REVIEW OF SYSTEMS: Fourteen-point review of system was performed. MEDICATIONS: Warfarin, Renvela, Ropinirole, pravastatin, oxycodone, furosemide, fluticasone, fluoxetine, cinacalcet, carvedilol, Symbicort, amiodarone, albuterol. PHYSICAL EXAMINATION: Vitals: Temperature 36.5, pulse 57, respiratory rate 12, blood pressure 113/59, O2 sat 100% on room air. General appearance: Awake, alert, oriented x3. In no acute distress. HEENT: Atraumatic. Moist mucous membranes. PERRLA. No JVD, no lymphadenopathy. No thyroid enlargement. Heart: Regular rhythm. Paced rhythm. Systolic murmur noted. Lungs: Decreased breath sound at bases. No wheezing. No rhonchi. Abdomen: Soft, active bowel sounds. Nontender, nondistended. No hepatosplenomegaly. Extremities: Chronic skin changes in the lower extremity, 2+ edema. Dressing on both feet. LABORATORY: Sodium 127, potassium 4.9, chloride 84, bicarb 21, BUN 56, creatinine 6.58. Calcium 7.0. Magnesium 1.6. Total bilirubin 1.5. Troponin 0.069. Hemoglobin 12.1. WBC 10.4. ASSESSMENT: 1. Presyncope, likely related to ventricular tachycardia. 2. End-stage renal disease, on hemodialysis every Wednesday, Wednesday, and Wednesday. 3. Severe nonischemic cardiomyopathy. Recent echocardiogram showed ejection fraction 20% to 25%. 4. Status post pacemaker and automatic implantable cardioverter-defibrillator placement. 5. Chronic atrial fibrillation. 6. Chronic obstructive pulmonary disease. 7. History of hypertension. 8. Dilutional hyponatremia. 9. Renal osteodystrophy. PLAN: Per renal standpoint, if the patient stabilized and finished with interrogation, we will resume his hemodialysis. We will run it for 4 hours with ultrafiltration of 1-2 L as tolerated. We will continue to monitor his blood pressure and heart rate closely during hemodialysis. The patient will be evaluated by a cell tester. The rest of management as per primary team. Thank you for allowing me to participate in the care of your patient. We will monitor along with you.
[2017-02-08] MEDS ORDERED: IV Premix 1 EACH IV ONE (20:51)
[2017-02-08] MEDS ORDERED: Amiodarone 360 mg/200 mL D5W Premix IV ONE (20:51)
[2017-02-08] MEDS: HYDROcodone-APAP 5-325 mg Tablet PO PRN (21:02)
--- NOTE | 2017-02-08 21:23 | NUR ---
Dialysis note: 4 hrs tx 2700 ml net UF per pt's request LLA fistula, accessed w/ no problems Pls see DTR for VS details Qb 400 as ordered Heparin given O2 @ 2L via NC on during tx Tolerated tx, slept at intervals Fistula needle sites clotted w/in 10 min Stable condition at end of tx Report given to Geremias JOHNSON
[2017-02-09] VITALS (9 sets, daily range): BP systolic 77–111; BP diastolic 38–66; PULSE 49–63; RESP 11–17; O2SAT 94–100
[2017-02-09] MEDS: HYDROcodone-APAP 5-325 mg Tablet PO PRN ×2 (02:44→20:08)
[2017-02-09 04:41] LABS: INR 2.76 ratio
--- NOTE | 2017-02-09 05:22 | NUR ---
Cardiac/HD/Pain Patient 100% V Paced in the 60's, BP stable and tolerated hemodialysis well, denies any syncopal episodes this shift and no V-tach noted this shift, medicated for pain in bilateral feet with PO pain meds, good relief from pain and patient rested well after medicated, uneventful shift, no distress noted, patient pleasant and cooperative this shift. Addendum: 02/09/17 at 0528 by RUPERTO MOONEY RN Amended: Links added.
--- NOTE | 2017-02-09 08:27 | PCM.PHAPRO ---
Progress Ventricular tachycardia Date Feb 09-Feb INR 2.51 2.76 INR change 0.25 Warf Dose 1.5 1 Raymond Cooley Pharm.D Feb 09, 2017 08:27
[2017-02-09 08:43] LABS: BASOPHILS % (AUTO) 0.6 % (0-3); EOSINOPHILS % (AUTO) 3.7 % (0-5); Mean Corpuscular Volume 108.7 fL (81-100); NEUTROPHILS % (AUTO) 77.1 % (40-74); Platelet Count 111 bil/L (150-400)
[2017-02-09 09:02] LABS: Magnesium 1.6 mg/dL (1.6-2.6)
[2017-02-09] MEDS ORDERED: Amiodarone 360 mg/200 mL D5W Premix IV ONE (10:14)
[2017-02-09] MEDS ORDERED: IV Premix 1 EACH IV ONE (10:14)
[2017-02-09] MEDS: Amiodarone 360 mg/200 mL D5W 360 MG, Filter, Taxol 14256-28 1 EACH in IV Premix 1 EACH IV SCH (10:15)
[2017-02-09] MEDS ORDERED: Budesonide-Formot 160-4.5 mCg 6.9 Gm Inhaler INHALATION SCH (10:50)
[2017-02-09] MEDS ORDERED: Levalbuterol 1.25 mg/0.5mL Inhalation Solution NEB PRN (10:55)
[2017-02-09] MEDS: Fluticasone-Salmeterol 500-50 Inhaler INHALATION SCH ×2 (12:13→21:39)
--- NOTE | 2017-02-09 13:49 | PCM.PNMED ---
Subjective Date of Service Feb 09, 2017 Subjective Bob Arenas is a 66 year old with past medical history significant for COPD, heart failure with reduced EF status post biventricular pacemaker and AICD, ESRD on HD MWF, and PE on Warfarin who presented to the [facility] ED via EMS from dialysis due to ventricular tachycardia and near-syncopal episode. Currently under treatment of V tach. Overnight: The patient did well and remained V-paced without any V tach recurrences. Today: The patient states he feels much better and denies any chest pain. He states his feet are hurting him a bit but his pain is 1/10. His hip is not hurting him. He denies any shortness of breath but notes some wheezing. The remainder of ROS is negative except as noted above. Exam Vital Signs Vital Sign - Last Date Time Temp Pulse Resp B/P Pulse Ox O2 Delivery O2 Flow Rate FiO2 02/09/17 08:55 37.2 63 17 111/54 98 Room Air 02/08/17 23:42 2.00 Intake and Output 02/08/17 02/08/17 02/09/17 Cumulative From/Thru 15:00 23:00 07:00 02/08/17 13:27 - 02/09/17 06:02 Intake Total 150 ml 1078 ml 1228 ml Output Total 2700 ml 0 ml 2700 ml Balance -2550 ml 1078 ml -1472 ml Intake Oral 50 ml 800 ml 850 ml IV Total 100 ml 278 ml 378 ml Output Urine Total 0 ml 0 ml 0 ml Ultrafiltrate 2700 ml 2700 ml Exam General: Alert, Oriented X3, Cooperative, in no acute distress Head: Normocephalic, atraumatic. External ears normal. Eyes: PERRLA, EOMI. Anicteric sclerae. Subconjunctival hemorrhage of left eye. Mouth: Mouth normal, Mucous membranes moist/pink. Neck: Neck supple with full range of motion. no JVD noted Chest& Lungs: Expiratory wheeze noted at bilateral bases. Normal respiratory effort. Cardiovascular: Regular rate and rhythm, Normal S1, Normal S2, No murmurs/rubs/ gallops Abdomen: Non-tender, Non-distended, No masses, Normoactive bowel tones, Soft Musculoskeletal: Tender left hip, spontaneous left hip spasms. Extremities: left foot with toe amputation wrapped in bandages, right foot wrapped in bandages. Venous statis bilaterally. Neurological: Normal speech. Cranial nerves II through XII intact bilaterally. Moves all extremities spontaneously with equal strength. Skin: multiple small tears on the skin, thin fragile skin IVs and Medications Medications Reviewed: Medications were reviewed in detail Lab and Diagnostics Result Diagram: 02/09/1781902/09/17819 X-Rays, CTs and MRIs X-RAY CHEST ONE VIEW, PORTABLE IMPRESSION: 1. No acute cardiopulmonary disease. Dictated by: Reid Lambert M.D. on 02/08/2017 at 15:09 Assessment & Plan Bob Arenas is a 66 year old with past medical history significant for COPD, heart failure with reduced EF status post biventricular pacemaker and AICD, ESRD on HD MWF, and PE on Warfarin who presented to the [facility] ED via EMS from dialysis due to ventricular tachycardia and near-syncopal episode. The patient was admitted to [facility] in September of 2016 due to the same complaint. Ventricular tachycardia in the setting of heart failure with severely reduced EF status post bi-ventricular pacer with AICD placement, present on admission, stable -Cardiology consulted, appreciate time and expertise -No shocks delivered -Amiodarone load for 24 hours with increase of PO amiodarone to 400 mg BID x7 days -Monitor on telemetry. Monitor electrolytes. -Elevated troponin likely from demand ischemia -Continue carvedilol. End-stage renal disease, on hemodialysis every Wednesday, Wednesday, and Wednesday. POA and stable. -Dr. Daly consulted, appreciate time and expertise -Continue home medications Soft tissue infection, without history of MRSA, present on admission, stable -Doxycycline 100 mg PO BID -Wound consult -Physical therapy History of hypertension. POA and stable. -Continue lisinopril History of chronic obstructive pulmonary disease, not in exacerbation. POA and stable. -Continue Symbicort -Levalbuterol nebulizer PRN History of hyperlipidemia, POA and stable. -Continue statin Chronic atrial fibrillation. POA and stable. Restless leg syndrome -Continue ropinirole History of pulmonary embolism on Warfarin -Continue Warfarin per pharmacy CODE STATUS: FULL CODE, as long as he is not in a vegetative state. Dispo: Anticipate patient can be discharged tomorrow or the day after. VTE Mechanical Devices: Intermittant Pneumatic CD Attending Statement Patient seen and examined with house staff. Agree with all attached documentation. Joie Quintanilla DO Feb 09, 2017 10:44 Shin Walker MD Feb 09, 2017 16:41
--- NOTE | 2017-02-09 14:11 | PCM.PNNEPH ---
Subjective Date of Service Feb 09, 2017 Subjective Now with paced rhythm, on Amiodarone gtt. HD yesterday without complication. UF 2.7 L Exam Vital Signs Vital Sign - Last Date Time Temp Pulse Resp B/P Pulse Ox O2 Delivery O2 Flow Rate FiO2 02/09/17 11:56 36.8 55 14 105/57 100 Room Air 02/08/17 23:42 2.00 Intake and Output 02/08/17 02/08/17 02/09/17 Cumulative From/Thru 15:00 23:00 07:00 02/08/17 13:27 - 02/09/17 06:02 Intake Total 150 ml 1078 ml 1228 ml Output Total 2700 ml 0 ml 2700 ml Balance -2550 ml 1078 ml -1472 ml Intake Oral 50 ml 800 ml 850 ml IV Total 100 ml 278 ml 378 ml Output Urine Total 0 ml 0 ml 0 ml Ultrafiltrate 2700 ml 2700 ml Exam General appearance: Awake, alert, oriented x3. In no acute distress. HEENT: Atraumatic. Moist mucous membranes. PERRLA. No JVD, no lymphadenopathy. No thyroid enlargement. Heart: Regular rhythm. Paced rhythm. Systolic murmur noted. Lungs: Decreased breath sound at bases. Occ. wheezing. No rhonchi. Abdomen: Soft, active bowel sounds. Nontender, nondistended. No hepatosplenomegaly. Extremities: Chronic skin changes in the lower extremity, 2+ edema. Dressing on both feet. Lab and Diagnostics Result Diagram: 02/09/17 0820 02/09/17 0820 X-Rays, CTs and MRIs X-RAY CHEST ONE VIEW, PORTABLE IMPRESSION: 1. No acute cardiopulmonary disease. Dictated by: Reid Lambert M.D. on 02/08/2017 at 15:09 Plan Impression ASSESSMENT: 1. Presyncope, likely related to ventricular tachycardia. 2. End-stage renal disease, on hemodialysis every Wednesday, Wednesday, and Wednesday. 3. Severe nonischemic cardiomyopathy. EF 20% to 25%. 4. Status post pacemaker and automatic implantable cardioverter- defibrillator placement. 5. Chronic atrial fibrillation. 6. Chronic obstructive pulmonary disease. 7. History of hypertension. 8. Dilutional hyponatremia. 9. Renal osteodystrophy. Plan: Next HD in am. Follow cardiology rec. AnaWally stewart MD Feb 09, 2017 14:11
--- NOTE | 2017-02-09 14:25 | CONS ---
[address] [address] CONSULTATION REPORT PATIENT: DANISHA BAI : 1950 MR#: [id number] ADMIT: 02/08/2017 JOB ID: [id number] DATE OF SERVICE: 02/09/2017 Dr. Shin Walker has asked that I consult on this 66-year-old, complicated gentleman who was admitted through the emergency department with recurrent ventricular tachycardia. HISTORY: The patient has a complicated cardiac history which includes a dilated nonischemic cardiomyopathy with a left bundle branch block Diagnosed in 2009 with an EF of 15% to 20%. [facility] had a negative cardiac [facility]. His subsequent course has been complicated by recurrent paroxysmal atrial fibrillation and complete heart block as well as more recently ventricular tachycardia for which he has been on amiodarone despite significant COPD. He also has end-stage renal disease, on hemodialysis. He was admitted in September after a syncopal episode and his device interrogation showed intermittent atrial flutter progressing to ventricular tachycardia at 162 bpm with failed ATP and requiring a 35-joule discharge. An echocardiogram at that time showed severe LV systolic dysfunction and enlargement with an ejection fraction of 20% to 25% with akinesis of the distal 3rd of the left ventricle, as well as mild right ventricular enlargement, mild hypokinesis with pulmonary pressure estimated at 38 mmHg and a CVP of 15 mmHg. He had moderate mitral and moderately severe tricuspid regurgitation with evidence of abdominal ascites. He is felt to be volume overloaded and underwent hemodialysis and was continued on amiodarone 200 mg daily. He saw Dr. Velez in followup in November with a device interrogation that suggested the absence of any recurrent episodes. Right ventricular lead threshold was slightly high with chronically low impedance but was felt to be stable and his medications were continued. His most recent device interrogation from December 18, 2016, showed that he is 99% bi-ventricularly paced without any tachyarrhythmias with a fairly good heart rate control and steady thoracic impedance for the previous several months. He has subsequently been followed by the wound clinic for chronic ulceration on both feet and underwent peripheral angiography which revealed occlusion of both internal iliac arteries and a high-grade stenosis in the left profunda femoral artery but adequate runoff. He was seen in the emergency department on January 25, 2017, after a mechanical fall with a mild left trochanter fracture. He had another ground level fall on February 04, 2017, without any significant injury and declined hospitalization. Both of those episodes were not associated with any lightheadedness but were clearly mechanical falls by his perception. He generally was feeling well except for his hip pain when he had an extremely busy morning yesterday, seeing doctors offices, and thereby foregoing any eating or drinking throughout the morning. He was stressed because of being late to some of his physician appointments and ultimately presented to hemodialysis where he complained of intermittent episodes of profound lightheadedness but without any syncope or fall. Monitoring there suggested runs of wide complex tachycardia and medics were summoned. He reportedly had an episode in the ambulance where he lost consciousness and upon his arrival to the emergency department continued to have frequent salvos of nonsustained ventricular tachycardia. Dr. Velez reviewed the tracings and had the device interrogated which showed no shocks but clearly was having salvos of nonsustained ventricular tachycardia and he was started on IV amiodarone with a good affect and suppression of his arrhythmia. Since then, he has had no further episodes. He denies any associated chest discomfort or palpitations with any of these episodes. He has chronic dyspnea on exertion which he feels is unchanged and has not noted any recent change in his exercise capacity except for being more limited by his hip pain. CARDIAC RISK FACTORS: Notable for hypertension, hyperlipidemia. He has a significant tobacco history and has resumed smoking two cigarettes daily. There is no history of diabetes or family history of heart disease. PAST MEDICAL HISTORY: Notable for history of pulmonary embolism for which he is on warfarin and has end-stage renal disease. He has COPD, and has depression which he feels is adequately controlled. HOME MEDICATIONS: 1. Amiodarone 200 mg daily. 2. Carvedilol 12.5 mg b.i.d. 3. Furosemide 40 mg daily. 4. Lisinopril 10 mg daily. 5. Potassium 8 mEq daily. 6. Pravastatin 40 mg daily. 7. Ropinirole 0.5 mg t.i.d. 8. Symbicort inhaler. 9. Doxycycline 100 mg b.i.d. 10. Fluoxetine 20 mg daily. 11. Furosemide 40 mg daily. 12. Vitamin D3. FAMILY HISTORY: No family history of any significant cardiac disease. SOCIAL HISTORY: The patient lives alone in a mobile home in [place]. He denies any alcohol consumption but does smoke around two cigarettes daily. REVIEW OF SYSTEMS: A complete review is performed and is notable for the absence of any recent fevers or chills or weight change. Denies any vision change or ENT problems. Notes no change in his chronic dyspnea and cough, although with occasional coughing fits which produce vomiting. He has clear phlegm without any purulent sputum. Denies any hematemesis. Denies any peptic ulcer disease or GI blood loss. Denies any genitourinary complaints. No musculoskeletal complaints except for his hip pain and toe ulcerations, which he feels are healing. He denies any history of stroke or TIA. No history of any thyroid disorder. He feels that his depression is adequately controlled and denies any anxiety. No history of any bleeding disorder. PHYSICAL EXAMINATION: Pleasant elderly white male, in no distress. HR 57, BP 105/57. O2 saturation 98% on room air. Weight is 77.5 kg, down from 80.6 kg on admission. He had a net diuresis yesterday of 2.5 L by ultrafiltration. Skin: Warm and dry although he has cool extremities. HEENT: EOMI without arcus. He has full set of dentures. Lungs: Hyperresonant to percussion with reduced breath sounds with some slight expiratory wheeze but no rales. CV: Nonpalpable PMI with a regular rhythm with distant heart tones but no appreciable murmurs or gallops. JVP is difficult to assess. Carotid pulses are 2+ bilaterally with normal upstroke and without bruit. Abdomen: Soft, nontender, nontender, without any palpable masses or hepatosplenomegaly. Extremities: Warm although both feet are sterilely dressed. There is no obvious edema. Neuro: Moves all four extremities. Psych: Awake, alert, and oriented. LABORATORY: Potassium yesterday was 4.9, this morning 4.5. BUN is 29 and a creatinine of 4.1. Bicarb 24. Magnesium was 1.6 yesterday and again is 1.6 today. TSH was 4.0. Troponin is borderline elevated at 0.07. Hematocrit is 35%. INR is 2.76 this morning. ECG: Shows AV pacing. He has had no recurrent ventricular arrhythmias. Chest x-ray: No acute infiltrates. IMPRESSION: 1. Recurrent nonsustained ventricular tachycardia. He clearly had multiple salvos of nonsustained ventricular tachycardia but of insufficient duration to trigger any device discharge. His rhythm has significantly improved with IV amiodarone and I would simply continue the same, although I have discussed with him the concern for pulmonary toxicity with amiodarone, particularly in the setting of ongoing smoking. At this point, I would continue with IV amiodarone for 24 hours and transition over to oral amiodarone at 400 mg b.i.d. for a week. Further recommendations per Dr. Velez. 2. Severe dilated nonischemic cardiomyopathy. He appears to be fairly well compensated, particularly after his dialysis. I would continue with his home medications as is. 3. End-stage renal disease. Per Nephrology team. 4. Ongoing toe ulcerations. Apparently healing. 5. History of hypertension. Adequately controlled. 6. Chronic obstructive pulmonary disease with ongoing tobacco addiction. I told him it is very important for him to stop smoking. 7. Hyperlipidemia. I would continue with pravastatin although would consider rosuvastatin as an outpatient if this fails to adequately control his lipid status. 8. History of atrial fibrillation. No recurrence. 9. History of pulmonary embolism. Continues on warfarin. His INRs may increase on amiodarone. PLAN: 1. Continue with IV amiodarone for a total of 24 hours transitioning to amiodarone 400 mg b.i.d. 2. Continue other home medications. 3. Continue to monitor his heart rate and rhythm. 4. Supplement magnesium to levels greater than 2.0. 5. Continue to follow his protimes closely with his amiodarone increased. Dr. Velez or myself will see the patient in followup tomorrow. I spent a total of 1 hour and 54 minutes reviewing old medical records, discussing with Dr. Velez, interviewing and examining the patient, and documenting such.
--- NOTE | 2017-02-09 17:01 | NUR ---
Bp's/Gtts The amiodarone drip has been dc'ed per Dr. Kaur's consultation note and per the pt's bp's falling to 77/36. Per Dr. Kaur, nursing is to hold lisinopril and carvedilol until bp's return to baseline. The pt reports "feeling sleepy", but does not endorse any other symptoms of hypotension. Hospitalist and Cardiology aware.
[2017-02-10] MEDS: HYDROcodone-APAP 5-325 mg Tablet PO PRN (00:52)
[2017-02-10 03:50] VITALS: BP 100/60; PULSE 54; RESP 13; O2SAT 96
[2017-02-10 05:02] LABS: INR 2.75 ratio
--- NOTE | 2017-02-10 05:06 | NUR ---
Respiratory/cardiac/pain: Pt is 100% V-paced with occasional PVC. BP has been improving, pt remains on room air with spo2 93-99%. Pt has chronic bilateral foot pain with dressings to both feet being managed by wound care. Pt has received PRN pain medication.
[2017-02-10 05:19] LABS: Magnesium 1.6 mg/dL (1.6-2.6)
[2017-02-10 07:39] VITALS: BP 101/64; PULSE 53; RESP 16; O2SAT 99
--- NOTE | 2017-02-10 07:46 | PCM.PNMED ---
Subjective Date of Service Feb 10, 2017 Subjective Patient is doing well overnight. He denies any dyspnea, palpitations, lightheadedness. His carvedilol was held for low blood pressure his IV amiodarone is off. No anorexia, nausea, abdominal pain. Exam Vital Signs Vital Sign - Last Date Time Temp Pulse Resp B/P Pulse Ox O2 Delivery O2 Flow Rate FiO2 02/10/17 07:39 36.9 53 16 101/64 99 Room Air 02/08/17 23:42 2.00 Intake and Output 02/09/17 02/09/17 02/10/17 Cumulative From/Thru 15:00 23:00 07:00 02/08/17 13:27 - 02/10/17 06:22 Intake Total 1075 ml 600 ml 2903 ml Output Total 50 ml 2750 ml Balance 1025 ml 600 ml 153 ml Intake Oral 1075 ml 600 ml 2525 ml IV Total 378 ml Output Urine Total 50 ml 50 ml Ultrafiltrate 2700 ml # Voids 1 1 Exam Alert and oriented -3, no distress. Fluent speech Anicteric sclera. Lungs are clear with normal rate and effort Heart is regular without murmur gallop or rub Abdomen soft nontender, flat Extremities are free of edema. Skin is free of rash or lesions. IVs and Medications Medications Reviewed: Medications were reviewed in detail Lab and Diagnostics Result Diagram: 02/09/17 0820 02/10/17 0420 X-Rays, CTs and MRIs X-RAY CHEST ONE VIEW, PORTABLE IMPRESSION: 1. No acute cardiopulmonary disease. Dictated by: Reid Lambert M.D. on 02/08/2017 at 15:09 Assessment & Plan Bob Arenas is a 66 year old with past medical history significant for COPD, heart failure with reduced EF status post biventricular pacemaker and AICD, ESRD on HD MWF, and PE on Warfarin who presented to the [facility] ED via EMS from dialysis due to ventricular tachycardia and near-syncopal episode. The patient was admitted to [facility] in September of 2016 due to the same complaint. Ventricular tachycardia in the setting of heart failure with severely reduced EF status post bi-ventricular pacer with AICD placement, present on admission, resolved. -Cardiology consulted, appreciate time and expertise -No shocks delivered -Amiodarone load for 24 hours with increase of PO amiodarone to 400 mg BID x7 days -Monitor on telemetry. Monitor electrolytes. -Elevated troponin likely from demand ischemia -Continue carvedilol We will discuss potential discharge later today with cardiology. Anticipate discharge home on a higher dose of amiodarone with a slow taper. We will need to watch his ProTime carefully.. Chronic systolic heart failure, POA and stable. The patient has an EF of 20%. He is not currently decompensated. We will merely continue his typical medications. End-stage renal disease, on hemodialysis every Wednesday, Wednesday, and Wednesday. POA and stable. -Dr. Daly consulted, appreciate time and expertise -Continue home medications Dialysis this morning Soft tissue infection, without history of MRSA, present on admission, stable -Doxycycline 100 mg PO BID -Wound consult -Physical therapy Continue antibiotics History of hypertension. POA and stable. -Continue lisinopril Cold carvedilol for low blood pressure, resume after dialysis. History of chronic obstructive pulmonary disease, not in exacerbation. POA and stable. -Continue Symbicort -Levalbuterol nebulizer PRN History of hyperlipidemia, POA and stable. -Continue statin Chronic atrial fibrillation. POA and stable. Restless leg syndrome -Continue ropinirole History of pulmonary embolism on Warfarin -Continue Warfarin per pharmacy CODE STATUS: FULL CODE, as long as he is not in a vegetative state. Dispo: Probable discharge this afternoon. We will have a discussion with cardiology regarding follow-up, amiodarone taper. We will also have wound see him this morning. VTE Mechanical Devices: Intermittant Pneumatic CD Shin Walker MD Feb 10, 2017 07:46
[2017-02-10] MEDS: Fluticasone-Salmeterol 500-50 Inhaler INHALATION SCH (08:30)
--- NOTE | 2017-02-10 09:35 | NUR ---
Dialysis The pt left the unit for dialysis on MOC at 0925. The pt left A&Ox3 with VSS. Morning medications are being held until after dialysis.
[2017-02-10 10:22] VITALS: PULSE 56
--- NOTE | 2017-02-10 11:19 | NUR ---
Evaluation completed. Please go to "Notes" then click on "Assessments and Notes" (bottom left corner of screen). Then select appropriate discipline tab on top of screen.
--- NOTE | 2017-02-10 11:39 | PCM.DIMED ---
Discharge Instructions Date of Service Feb 10, 2017 Dates of Hospitalization Feb 08, 2017 at 15:58 Discharge Diagnosis Discharge Diagnosis Ventricular tachycardia, improved Chronic systolic heart failure, POA and stable. EF is 20%. End-stage renal disease, stable Soft tissue infection, without history of MRSA, stable. History of hypertension. stable. History of chronic obstructive pulmonary disease, stable. History of hyperlipidemia, stable. Chronic atrial fibrillation. stable. Restless leg syndrome, POA and stable History of pulmonary embolism on Warfarin, stable Diet Discharge Diet: Low fat, Low Sodium Activity Discharge Activity: Limited until seen by PCP Call your provider Call your provider for: Fever or Chills, Shortness of breath, Chest pain Patient Instructions Patient Instructions He will need a pro time on February 15 Follow-up plan We will resume home health physical therapy 3 times a week for 4 weeks as well as wound care 3 times a week for 4 weeks. Follow-up Provider: Christ Velez MD Follow-up with PCP in: 2 weeks Shin Walker MD Feb 10, 2017 11:39 Restless leg syndrome -Continue ropinirole History of pulmonary embolism on Warfarin -Continu Shin Walker MD Feb 10, 2017 11:39
--- NOTE | 2017-02-10 12:26 | PCM.PNNEPH ---
Subjective Date of Service Feb 10, 2017 Subjective Feeling better, amiodarone off. HD pending. Denies lightheadedness. Exam Vital Signs Vital Sign - Last Date Time Temp Pulse Resp B/P Pulse Ox O2 Delivery O2 Flow Rate FiO2 02/10/17 10:22 56 02/10/17 07:39 36.9 16 101/64 99 Room Air 02/08/17 23:42 2.00 Intake and Output 02/09/17 02/09/17 02/10/17 Cumulative From/Thru 15:00 23:00 07:00 02/08/17 13:27 - 02/10/17 06:22 Intake Total 1075 ml 600 ml 2903 ml Output Total 50 ml 2750 ml Balance 1025 ml 600 ml 153 ml Intake Oral 1075 ml 600 ml 2525 ml IV Total 378 ml Output Urine Total 50 ml 50 ml Ultrafiltrate 2700 ml # Voids 1 1 Exam General appearance: Awake, alert, oriented x3. In no acute distress. HEENT: Atraumatic. Moist mucous membranes. PERRLA. No JVD, no lymphadenopathy. No thyroid enlargement. Heart: Regular rhythm. Paced rhythm. Systolic murmur noted. Lungs: Decreased breath sound at bases. Occ. wheezing. No rhonchi. Abdomen: Soft, active bowel sounds. Nontender, nondistended. No hepatosplenomegaly. Extremities: Chronic skin changes in the lower extremity, 2+ edema. Dressing on both feet. Lab and Diagnostics Result Diagram: 02/09/17 0820 02/10/17 0420 X-Rays, CTs and MRIs X-RAY CHEST ONE VIEW, PORTABLE IMPRESSION: 1. No acute cardiopulmonary disease. Dictated by: Reid Lambert M.D. on 02/08/2017 at 15:09 Plan Impression 1. Presyncope, likely related to ventricular tachycardia. 2. End-stage renal disease, on hemodialysis every Wednesday, Wednesday, and Wednesday. 3. Severe nonischemic cardiomyopathy. EF 20% to 25%. 4. Status post pacemaker and automatic implantable cardioverter- defibrillator placement. 5. Chronic atrial fibrillation. 6. Chronic obstructive pulmonary disease. 7. History of hypertension. 8. Dilutional hyponatremia. 9. Renal osteodystrophy. 10. Skin and soft tissue infection. Plan: Continue HD Q MWF. Hold lisinopril and coreg given hypotension. Ananthapanyasut,Wanwarat MD Feb 10, 2017 12:26
[2017-02-10] MEDS ORDERED: AMIO200T PO (13:08)
[2017-02-10] MEDS ORDERED: WARF2.5T82 PO (13:08)
[2017-02-10] MEDS ORDERED: DOXY100T2 PO (13:08)
[2017-02-10] MEDS ORDERED: AMIO400T4 PO (13:08)
--- NOTE | 2017-02-10 13:37 | NUR ---
Dialysis note 3.5 hr HD tx 500ml net UF removed Pt hypotensive with UF in the 80's systolic/pt asymptomatic to these pressures 2 15 g needles to LL fistula. QB 450 See DTR for complete vitals trends Off BP 104/60 Pt rested comfortably thru tx. Sureseals/clamps X10 mins post tx Report given and pt returned to floor stable.
--- NOTE | 2017-02-10 14:33 | PCM.DC.MED ---
Discharge Summary Date of Service Feb 10, 2017 Dates of Hospitalization Date of Hospital Admission Feb 08, 2017 at 15:58 Date of Discharge: Feb 10, 2017 Providers: Admitting Physician: Shin Landeros MD [facility] Attending Physician: Shin Landeros MD Diagnosis at Time of Discharge Diagnosis at Time of Discharge Ventricular tachycardia, improved Chronic systolic heart failure, POA and stable. EF is 20%. End-stage renal disease, stable Soft tissue infection, without history of MRSA, stable. History of hypertension. stable. History of chronic obstructive pulmonary disease, stable. History of hyperlipidemia, stable. Chronic atrial fibrillation. stable. Restless leg syndrome, POA and stable History of pulmonary embolism on Warfarin, stable Consultations Cardiology, Dr. Kaur Procedures XRay, CTs & MRIs X-RAY CHEST ONE VIEW, PORTABLE IMPRESSION: 1. No acute cardiopulmonary disease. Dictated by: Reid Lambert M.D. on 02/08/2017 at 15:09 Invasive Procedures none Brief History Bob Arenas is a 66 year old with past medical history significant for COPD, heart failure with reduced EF status post biventricular pacemaker and AICD, ESRD on HD MWF, and PE on Warfarin who presented to the [facility] ED via EMS from dialysis due to ventricular tachycardia and near-syncopal episode. The patient was admitted to [facility] in September of 2016 due to the same complaint. He does not feel when his AICD goes off. The patient noted that last admission he had a complete loss of consciousness. At his last visit his beta jacinto dose was increased. Per ED report his AICD went off, however upon interrogation there was no electrical discharge. The patient denies any chest pain, shortness of breath or any major changes. The patient did fall 2 weeks and has a hairline fracture of his left humerus and is seeing orthopedics for this. He was also seen today by podiatry for a likely foot infection and prescribed antibiotics. He has not picked these up yet. Per ED report during history taking the patient reported feeling lightheaded at which time he was again noted to be in ventricular tachycardia on the monitor however this lasted several seconds before spontaneously going back to a paced rhythm. Dr. Velez of cardiology was contacted to interrogate his pacemaker. Dr. Daly of nephrology was contacted for dialysis. Hospital Course Bob Arenas is a 66 year old with past medical history significant for COPD, heart failure with reduced EF status post biventricular pacemaker and AICD, ESRD on HD MWF, and PE on Warfarin who presented to the [facility] ED via EMS from dialysis due to ventricular tachycardia and near-syncopal episode. The patient was admitted to [facility] in September of 2016 due to the same complaint. Ventricular tachycardia in the setting of heart failure with severely reduced EF status post bi-ventricular pacer with AICD placement, present on admission, resolved. -Cardiology consulted, appreciate time and expertise -No shocks delivered -Amiodarone load for 24 hours with increase of PO amiodarone to 400 mg BID x7 days -Monitor on telemetry. Monitor electrolytes. -Elevated troponin likely from demand ischemia -Continue carvedilol The patient had no further instances of ventricular tachycardia while in the hospital. He was loaded with IV amiodarone and then converted to oral. He stable for discharge. We will discuss potential discharge later today with cardiology. Anticipate discharge home on a higher dose of amiodarone with a slow taper. We will need to watch his ProTime carefully.. Chronic systolic heart failure, POA and stable. The patient has an EF of 20%. He is not currently decompensated. We will merely continue his typical medications. This was stable throughout admission. End-stage renal disease, on hemodialysis every Wednesday, Wednesday, and Wednesday. POA and stable. -Dr. Daly consulted, appreciate time and expertise -Continue home medications Dialysis this morning He was dialyzed Wednesday. Soft tissue infection, without history of MRSA, present on admission, stable -Doxycycline 100 mg PO BID -Wound consult -Physical therapy Continue antibiotics, he was seen by wound on the hospital we will resume his home wound care therapy. History of hypertension. POA and stable. -Continue lisinopril Cold carvedilol for low blood pressure, resume after dialysis. History of chronic obstructive pulmonary disease, not in exacerbation. POA and stable. -Continue Symbicort -Levalbuterol nebulizer PRN History of hyperlipidemia, POA and stable. -Continue statin Chronic atrial fibrillation. POA and stable. He will be discharged on a reduced dose of warfarin given his doxycycline and amiodarone. He will need a pro time within 2 days. Restless leg syndrome -Continue ropinirole History of pulmonary embolism on Warfarin -Continue Warfarin per pharmacy CODE STATUS: FULL CODE, as long as he is not in a vegetative state. Dispo: Probable discharge this afternoon. We will have a discussion with cardiology regarding follow-up, amiodarone taper. We will also have wound see him this morning. Exam Vital Signs (Last) Date Time Temp Pulse Resp B/P Pulse Ox O2 Delivery O2 Flow Rate FiO2 02/10/17 10:22 56 02/10/17 07:39 36.9 16 101/64 99 Room Air 02/08/17 23:42 2.00 Exam Patient was seen and examined the day of discharge Test 02/08/17 13:30 02/09/17 08:20 02/10/17 04:20 Total Bilirubin 1.5mg/dL (0.0-1.2) Aspartate Amino Transf (AST/SGOT) 21U/L (0-50) Alanine Aminotransferase (ALT/SGPT) 14U/L (0-44) Alkaline Phosphatase 125U/L (25-160) Troponin T 0.069ug/L (0.0-0.011) Total Protein 7.4g/dL (6.4-8.4) Albumin 3.2g/dL (3.4-5.0) Thyroid Stimulating Hormone (TSH) 4.050uIU/mL (0.450-4.500) Free Thyroxine 1.42ng/dL (0.82-1.77) White Blood Count 7.8th/mm3 (3.8-10.1) Red Blood Count 3.23mil/mm3 (4.40-5.80) Hemoglobin 11.3g/dL (13.8-17.2) Hematocrit 35.1% (41.0-50.0) Mean Corpuscular Volume 108.7fL (81-100) Mean Corpuscular Hemoglobin 35.0pg (27.0-35.0) Mean Corpuscular Hemoglobin Concent 32.2% (32.0-37.0) Red Cell Distribution Width 16.0% (12.3-15.4) Platelet Count 111bil/L (150-400) Neutrophils (%) (Auto) 77.1% (40-74) Lymphocytes (%) (Auto) 8.1% (14-46) Monocytes (%) (Auto) 10.0% (4-12) Eosinophils (%) (Auto) 3.7% (0-5) Basophils (%) (Auto) 0.6% (0-3) Hematology Comments Prothrombin Time 30.0sec (8.1-12.5) Prothromb Time International Ratio 2.75ratio Sodium Level 132mEq/L (134-144) Potassium Level 4.6mEq/L (3.5-5.2) Chloride Level 89mEq/L (97-108) Carbon Dioxide Level 25mmol/L (18-29) Blood Urea Nitrogen 48mg/dL (8-27) Creatinine 5.21mg/dL (0.76-1.27) Estimat Glomerular Filtration Rate 12mL/min (>59) Glucose Level 78mg/dL (60-99) Calcium Level 7.3mg/dL (8.5-10.1) Magnesium Level 1.6mg/dL (1.6-2.6) Discharge Medications Discharge Medications Albuterol Neb Soln (Albuterol Neb Soln) 2.5 Mg/3 Ml Vial.neb 2.5 MG INHALATION BID (Reported) Amiodarone (Amiodarone) 400 Mg Tablet 400 MG PO BID Prescribed by: SHIN LANDEROS MD Amiodarone (Amiodarone) 200 Mg Tablet 200 MG PO BID Prescribed by: SHIN LANDEROS MD Budesonide/Formoterol 160-4.5 mcg Inh (Symbicort 160-4.5 mcg Inh) 120 Puff Inhaler 2 PUFF INHALATION BID (Reported) Calcium Carbonate (Tums) 500 Mg Tab.chew 2,000 MG PO BID (Reported) Carvedilol (Carvedilol) 12.5 Mg Tablet 12.5 MG PO DAILY (Reported) Cinacalcet (Sensipar) 30 Mg Tablet 30 MG PO DAILY (Reported) Doxycycline Hyclate (Doxycycline Hyclate) 100 Mg Tablet 100 MG PO BID Prescribed by: SHIN LANDEROS MD Fluoxetine (Fluoxetine) 10 Mg Tablet 30 MG PO DAILY (Reported) Furosemide (Furosemide) 40 Mg Tablet 40 MG PO DAILY (Reported) Lisinopril (Lisinopril) 10 Mg Tablet 10 MG PO DAILY (Reported) Pravastatin (Pravastatin) 40 Mg Tablet 40 MG PO DAILY (Reported) Ropinirole (Ropinirole) 0.5 Mg Tablet 0.5 MG PO DAILY (Reported) Sevelamer Carbonate (Renvela) 800 Mg Tablet 800 MG PO TID (Reported) Warfarin Sodium (Warfarin Sodium) 2.5 Mg Tablet 2.5 MG PO DAILY Prescribed by: SHIN LANDEROS MD As needed Albuterol Sulfate (Proventil HFA Inhaler) 6.7 Gm Hfa.aer.ad 2 PUFF INH Q4 PRN PRN For Shortness of Breath (Reported) Miscellaneous Medications Fluticasone Propionate (Fluticasone Propionate) 50 Mcg/Actuation [place].susp 15.8 ML NS (Reported) Followup Plan Disposition: Home, with home health. This will include physical therapy 3 times a week for 4 weeks and home wound 3 times a week for 4 weeks. Follow-up plan We will resume home health physical therapy 3 times a week for 4 weeks as well as wound care 3 times a week for 4 weeks. Discharge Diet: Low fat, Low Sodium Discharge Activity: Limited until seen by PCP Patient Instructions He will need a pro time on Wednesday, February 15 Follow-up Provider: Christ Velez MD Follow-up with PCP in: 2 weeks Time spent 60 minutes hSin Landeros MD Feb 10, 2017 14:33
--- NOTE | 2017-02-10 14:41 | NUR ---
Social Work Note: Initial Assessment/Discharge Data& Assessment: EMR reviewed. Per pt is medically ready to discharge home via POV with resume [facility] RN with PT added. SW met with pt at bedside to confirm discharge plan and assess for any unmet needs. Bob Arenas is a 66 year old male admitted on 02/08/2017 for V-Tach and syncope. Per pt is medically improved and ready to discharge home via POV. Pt lives in [place] alone and uses a FWW at baseline for ambulation. Pt is open with [facility] RN for wound care. Per PT, pt would require HH PT as well. Per order, SW discussed Home Health PT with pt. Pt is agreeable and prefers to resume [facility] for RN and PT. SW notified Maximino with [facility] of pt discharge, resumption of care and added PT. Pt does not have SNF hx. Pt does not have [facility] insurance or [place] service connection. Pt does go to the [place] for primary care. Pt goes to [facility] for M, W, F dialysis. Pt drives at baseline. Pt has DPOA/AD paperwork completed, SW requested a copy when possible. Discharge Planning checklist provided. Pt family transporting pt home this afternoon. Pt denies any other needs. No other discharge needs identified. Plan: Per pt is medically ready to discharge home via POV with resume [facility] RN with PT added. Pt denies any other needs. No other discharge needs identified. NIECY Cortes Addendum: 02/10/17 at 1449 by SOM DAVILA Amended: Links added.
--- NOTE | 2017-02-10 15:25 | NUR ---
Wound Note Wound care orders received, pt seen at bedside prior to discharge from [facility]. Patient is current with [facility] for nursing visits and has a follow up with Dr Cochran scheduled at the wound center on 02/15/17. Currently patient is most sensitive at his right fifth toe. Bob is a ESRD and dialysis patient current with [facility] dialysis center. Wounds are gently cleaned today with gauze and saline, erythema is resolving at his right foot. He has wounds at Wound #11, left 2nd toe ulcer, measures 0.3 cm x 0.2 cm and there is a scab overlying the ulcer site. The ulcer measures 0.4 cm x 0.2 cm x 0.2 cm after debridement. There is 100% fibrin tissue. There is no drainage noted. There is no odor, eschar, bone or tendon exposed. Left great toe ulcer, ulcer measures 1.4 cm x 1.4 cm x 0.2 cm. Approximately 80% fibrin tissue. Granulation tissue pink and firm. There is bone exposed within the wound base. There is skin maceration. Right great toe ulcer, the ulcer measures 2 cm x 0.3 cm x 0.2 cm. There is approximately 80% fibrin tissue. Granulation tissue pink and firm. A small amount of serous drainage. Right 2nd toe ulcer, measures 0.4 cm x 0.2 cm x 0.1 cm. 100% fibrin tissue. A small amount of serous drainage. Left 3rd toe ulcer, measures 0.4 cm x 0.4 cm and is flush to surrounding skin. The ulcer measures 0.2 cm x 0.3 cm x 0.2 cm after debridement. Approximately 50% fibrin tissue. Granulation tissue pink and firm. A small amount of serous drainage. There is no odor, eschar, bone or tendon exposed. Right 5th toe ulcer, measures 0.9 cm x 1 cm x 0.3 cm. 100% fibrin tissue. There is eschar within the wound base and odor. A small amount of serous drainage. There is mild erythema and swelling around the wound margins. There is bone exposed within the wound base. There is no tendon or ligament noted. Wound gel applied to all ulcers then foam dressings were taped in place, recommend these be changed on q 48-72 hr basis.
--- NOTE | 2017-02-10 15:41 | NUR ---
[facility] signed
--- NOTE | 2017-02-10 16:49 | NUR ---
Discharge The pt left the unit at 1700 via wheelchair to his private vehicle (home FWW is in the car) where he will drive himself home. The pt left with all his belongings and his packet of discharge information including new scripts and follow up appointment info. The pt verbalized understanding of all educational materials and information provided. The pt left A&Ox3 with VSS.
== END 2017-02-10 17:05 | disposition home health service (06) | DRG 308 ==
LOC: EDBD 13:20 → SED 13:20 → CCU 15:58 → PCC 16:14
PROVIDERS: ADMIT Hospitalist; ATTEND Hospitalist
PROC: 3E033RZ Introduction of Antiarrhythmic into Peripheral Vein, Percutaneous Approach (ICD-10-PCS; principal; 2017-02-08)
PROC: 5A1D60Z (ICD-10-PCS; 2017-02-08)
DX: I47.2 Ventricular tachycardia (principal); N18.6 End stage renal disease; I50.22 Chronic systolic (congestive) heart failure; I13.2 Hypertensive heart and chronic kidney disease with heart failure and with stage 5 chronic kidney disease, or end stage renal disease; I42.0 Dilated cardiomyopathy; I27.82 Chronic pulmonary embolism; J44.9 Chronic obstructive pulmonary disease, unspecified; I71.4 Abdominal aortic aneurysm, without rupture; F32.9 Major depressive disorder, single episode, unspecified; G25.81 Restless legs syndrome; I48.2 Chronic atrial fibrillation; L97.519 Non-pressure chronic ulcer of other part of right foot with unspecified severity; F17.210 Nicotine dependence, cigarettes, uncomplicated; E78.5 Hyperlipidemia, unspecified; Z79.01 Long term (current) use of anticoagulants; Z95.810 Presence of automatic (implantable) cardiac defibrillator; Z99.2 Dependence on renal dialysis; Z79.51 Long term (current) use of inhaled steroids

== ENCOUNTER 2017-02-14 12:55 | Inpatient (IN) | payer MEDICARE, OTHER ==
[2017-02-14] VITALS (11 sets, daily range): BP systolic 99–120; BP diastolic 51–71; PULSE 50–102; RESP 14–22; O2SAT 97–100
[~2017-02-14] VITALS: Ht 182.9 cm; Wt 78.3 kg
[~2017-02-14 12:55] MED LIST changes: +ALBU2.5V4 INHALATION; +AMIO400T4 PO; +CALC500T9 PO; -CARV12.5 PO; +CARV12.52 PO; +DOXY100T2 PO; +EPINEPHrine 0.1 mg/mL 10 mL Syringe ONE; +Etomidate 2 mg/mL 20 mL Inj IV ONE; +FLUO10TA PO; -FLUO20CA25 PO; -HYDR-4003 PO; +LISI10TA PO; -OXYC1TAB24 PO; +Rocuronium 10 mg/mL 5 mL Inj ONE
--- NOTE | 2017-02-14 12:57 | ED.REPORT ---
HPI-General Illness Date of Service Feb 14, 2017 ED Provider: The patient is a 66 year old male with history of congestive heart failure s/p AICD, hypertension, hyperlipidemia, COPD, ESRD on HD, PE on warfarin, and recent hip fracture, who was brought to the emergency department by EMS for a syncopal episode that occurred prior to arrival. The patient states he felt lightheaded and noticed that his blood pressure was dropping and went as low as 78 systolic. He was sitting in a chair when he lost consciousness and slumped down to the floor. He did not hit his head. He denies chest pain or shortness of breath. The patient was seen in the emergency department for similar symptoms on the and was admitted for 2 nights for ventricular tachycardia. He was discharged home with amiodarone 400 mg BID x7 days. Nursing Notes Stated Complaint: SYNCOPE EPISODE Nursing Notes Reviewed: Yes Allergies: Coded Allergies: chlorhexidine (Verified Allergy, Mild, ITCHING, 09/13/16) vancomycin (Verified Adverse Reaction, Severe, NAUSEA/VOMITTING, 02/08/17) Scheduled Albuterol Neb Soln (Albuterol Neb Soln) 2.5 Mg/3 Ml Vial.neb 2.5 MG INHALATION BID Amiodarone (Amiodarone) 400 Mg Tablet 400 MG PO BID Amiodarone (Amiodarone) 200 Mg Tablet 200 MG PO BID Budesonide/Formoterol 160-4.5 mcg Inh (Symbicort 160-4.5 mcg Inh) 120 Puff Inhaler 2 PUFF INHALATION BID Calcium Carbonate (Tums) 500 Mg Tab.chew 2,000 MG PO BID Carvedilol (Carvedilol) 12.5 Mg Tablet 12.5 MG PO DAILY Cinacalcet (Sensipar) 30 Mg Tablet 30 MG PO DAILY Doxycycline Hyclate (Doxycycline Hyclate) 100 Mg Tablet 100 MG PO BID Fluoxetine (Fluoxetine) 10 Mg Tablet 30 MG PO DAILY Furosemide (Furosemide) 40 Mg Tablet 40 MG PO DAILY Lisinopril (Lisinopril) 10 Mg Tablet 10 MG PO DAILY Pravastatin (Pravastatin) 40 Mg Tablet 40 MG PO DAILY Ropinirole (Ropinirole) 0.5 Mg Tablet 0.5 MG PO DAILY Sevelamer Carbonate (Renvela) 800 Mg Tablet 800 MG PO TID Warfarin Sodium (Warfarin Sodium) 2.5 Mg Tablet 2.5 MG PO DAILY Scheduled PRN Albuterol Sulfate (Proventil HFA Inhaler) 6.7 Gm Hfa.aer.ad 2 PUFF INH Q4 PRN PRN For Shortness of Breath Miscellaneous Medications Fluticasone Propionate (Fluticasone Propionate) 50 Mcg/Actuation [place].susp 15.8 ML NS General Time Seen by MD: 12:57 Chief Complaint Other (syncope) Hx Obtained From: Patient, EMS Arrived By: Ambulance Sudden in Onset?: Yes Onset Occurred: Just prior to arrival Symptom Duration: 1 - 15 minutes Severity: Current: No pain currently Severity: Maximum: No pain Recent Healthcare: Recent doctor visit, Recent hospitalization Similar Sx Previous: Yes Past Medical History Past Medical History Notes: Full code Past Medical History AICD 11/21 Abdominal Aortic Aneurism Congestive heart failure, chronic, systolic dysfunction. Hypertension Hyperlipidemia Pacemaker Thrombophlebitis (FEET) Valvular Heart Disease (echo 01/2016- ef <20%) COPD ESRD on HD Dyspnea (NUNO) Pneumonia Pulmonary Embolism (HX OF) - On Warfarin Scrotal Mass (S/P HYDROCELECTOMY) Pressure Ulcers (left foot- sees wound care 2xweekly) Anxiety Hx Depression Hx of ventricular tachycardia Past Surgical History Appy, tonsils, hydrocele, AMP LT SMALL TOE, AICD, A/V FISTULA/ANGIOPLASTY tunnel hemodialysis catheter Family History Noncontributory Smoking History Former Smoker Social History Other Social History: Local resident Ambulatory Status Independent Review of Systems Full Review of Systems Respiratory: Denies: Shortness of breath Cardiovascular: Denies: Chest pain Neurologic: Reports: Change LOC, Lightheaded, Syncope Complete sys rev & neg: except as marked. Physical Exam Vital Signs Vital Signs Date Time Temp Pulse Resp B/P Pulse Ox O2 Delivery O2 Flow Rate FiO2 02/14/17 15:03 98 14 104/71 98 Room Air 02/14/17 14:31 99 22 99/70 97 Room Air 02/14/17 13:40 100 20 103/67 98 Room Air 02/14/17 13:28 102 17 105/71 98 Room Air 02/14/17 13:02 36.5 102 18 106/68 98 Room Air Initial VS: Reviewed Head / Eyes: Atraumatic, Normocephalic, PERRL ENT: Mucous membranes moist, Conjunctiva normal, No scleral icterus Neck: Supple, Non-tender, Full range of motion Abdomen / GI: Soft, Non-tender, No guarding, No rebound, No distention Lymphatic: No lymphadenopathy Extremities: Vascular intact, Neuro intact Skin: Warm, Dry, No cyanosis Neurologic: Alert, Oriented, Nonfocal Psychiatric: Mood/affect normal, Behavior normal, Normal thought content General/Constitutional: Awake, Alert Appearance / Presentation: Positive: Frail Thin Respiratory / Chest: Breath sounds = bilat, No respiratory distress Wheezing / Retractions: Positive: Wheezing expiratory Cardiovascular: Regular rhythm, Heart sounds NL, No gallop, No murmurs, No rubs , Cap refill not delayed, Peripheral circulation NL Heart Rate / Rhythm: Positive: Tachycardia Upper Extremities Upper Extremity / MS: Neurologic intact, Vascular intact Left forearm AV fistula Ankle / Foot: Neurologic intact, Vascular intact Bandages on the feet. Interpretation & Diagnostics Lab Results Interpretation Result Diagram: 02/14/17 1320 02/14/17 1320 Test 02/14/17 13:20 White Blood Count 9.1th/mm3 (3.8-10.1) Red Blood Count 3.19mil/mm3 (4.40-5.80) Hemoglobin 11.3g/dL (13.8-17.2) Hematocrit 35.4% (41.0-50.0) Mean Corpuscular Volume 111.0fL (81-100) Mean Corpuscular Hemoglobin 35.4pg (27.0-35.0) Mean Corpuscular Hemoglobin Concent 31.9% (32.0-37.0) Red Cell Distribution Width 16.2% (12.3-15.4) Platelet Count 115bil/L (150-400) Neutrophils (%) (Auto) 79.0% (40-74) Lymphocytes (%) (Auto) 7.1% (14-46) Monocytes (%) (Auto) 9.1% (4-12) Eosinophils (%) (Auto) 3.7% (0-5) Basophils (%) (Auto) 0.7% (0-3) Prothrombin Time 18.1sec (8.1-12.5) Prothromb Time International Ratio 1.67ratio Sodium Level 135mEq/L (134-144) Potassium Level 4.7mEq/L (3.5-5.2) Chloride Level 92mEq/L (97-108) Carbon Dioxide Level 23mmol/L (18-29) Blood Urea Nitrogen 51mg/dL (8-27) Creatinine 5.65mg/dL (0.76-1.27) Estimat Glomerular Filtration Rate 11mL/min (>59) Glucose Level 91mg/dL (60-99) Calcium Level 7.1mg/dL (8.5-10.1) Magnesium Level 1.4mg/dL (1.6-2.6) Total Bilirubin 1.1mg/dL (0.0-1.2) Aspartate Amino Transf (AST/SGOT) 28U/L (0-50) Alanine Aminotransferase (ALT/SGPT) 9U/L (0-44) Alkaline Phosphatase 140U/L (25-160) Troponin T 0.076ug/L (0.0-0.011) Total Protein 7.4g/dL (6.4-8.4) Albumin 3.3g/dL (3.4-5.0) ECG Interpretation ECG Interpretation: Atrial fibrillation/flutter and ventricular-paced rhythm Time: 13:11 Interpreted by: ED physician ECG Interpretation: Initially paced and then ventricular tachycardia Time: 14:09 Interpreted by: ED physician X-Ray Chest Interpretation Chest Xray Interpretation: IMPRESSION: 1. Patchy right lung opacities are nonspecific but may represent an atypical infection. Recommend correlation clinically and followup to demonstrate resolution if indicated. Dictated by: Reid Lambert M.D. on 02/14/2017 at 13:42 Interpretation / Wet Read by: Interpret - Radiologist Procedures Intubation Intubation Procedure: Initial try showed no color change. 2nd attempt was successful with good color change. Time: 15:12 Procedure Performed by: ED physician, ED resident Consent / Setup / Site Prep: No consent - emergent, Time-out performed, Oxygen administered, Pulse oximeter applied, milling operator applied, Hand hygiene observed, Stand sterile technique, Removed dentures Patient Position: Sniff position, Head extended Blade / ET Tube / Route: Bluford scope, ET tube cuffed (7.5 tube), Route: oral Procedural Sedation/Analgesia: Sedation: Etomidate (20) Neuromuscular Agent: Rocuronium (80) ET Confirmation: Direct visualization, BS equal, End tidal CO2 device, CXR, Rising O2 sat Secured / Marked: ET tube device, Tube marked at teeth (25) Complications: None Post-Procedure: Condition improved, Tolerated procedure well, Patient stable Re-Eval/Medical Decision Med Decision/Clinical Course Patient presents with intermittent nonsustained ventricular tachycardia. He initially received a 5 mg dose of IV metoprolol and however this was prior to witnessing an episode of nonsustained ventricular tachycardia. He received 150 mg IV amiodarone bolus and then the subsequent drip. He continued to have intermittent nonsustained ventricular tachycardia which she was symptomatic from. Lidocaine 100 mg IV was then given and a lidocaine drip was started. Additionally 2 g of IV magnesium were given. The patient did develop persistent sustained ventricular tachycardia with loss of consciousness and apnea. This prompted initiation of a CODE BLUE, successful defibrillation 1 back to his underlying paced rhythm, return of spontaneous circulation and return of normal neurologic function. The patient was subsequently intubated at the request of cardiology as this may help suppress his ventricular tachycardia. CT angiography the chest was performed to exclude pulmonary embolism however results of this are pending. Patient will be admitted to intensive care. Source of Hx: Old records, EMS Time of Eval: 13:20 Re-Evaluation/Progress Note: Rechecked the patient. Time of Eval: 14:02 Re-Evaluation/Progress Note: The patient has had a few runs of symptomatic ventricular tachycardia. Have administer amiodarone with no improvement. Time of Eval: 14:10 Re-Evaluation/Progress Note: Administered medications at this time. His heart rate has improved to 100 bpm. Discussed plan for admission with the patient. He understands and agrees with plan. Time of Eval: 15:05 Re-Evaluation/Progress Note: Dr. Ware was at the patient's bedside when he became unresponsive and stopped breathing. Code was called. CPR started. successfully defibrillated at 200J, back to a paced rhythm Time of Eval: 15:09 Re-Evaluation/Progress Note: ROSC Time of Eval: 15:11 Re-Evaluation/Progress Note: The patient is awake. He is nauseous and vomiting. Time of Eval: 15:19 Re-Evaluation/Progress Note: The patient was successfully intubated at this time. Time of Eval: 15:28 Re-Evaluation/Progress Note: Spoke with the patient's son. He understands and all of his questions were answered. Consultation #1: Referral / Consult Name: Lizett Ware MD Call Returned at: 13:23 Interface Engineer: Agrees with tawny, Agrees with plan Consultation #2: Referral / Consult Name: Lizett Ware MD Consulted With: Cardiology Call Returned at: 14:02 Interface Engineer: Agrees with tawny, Agrees with plan Note: Discussed patient's case. He recommends lidocaine and amiodarone - ICU admit, consider sedation and intubation. Consultation #3: Consulted With: Hospitalist Call Returned at: 14:41 Note: Spoke with the resident about the patient's case. Dr. Walker will be the attending on the case. Counseled Regarding: Diagnosis, Lab results, Need for admission Discharge & Departure Primary Impression: Ventricular tachycardia Additional Impression: Syncope Syncope type: unspecified Qualified Code: R55 - Syncope and collapse Disposition: ADMITTED TO HOSPITAL Discharge Condition All VS Reviewed: Yes Condition: Stable Referrals: [facility] (PCP) Christ Velez MD (Family) Crit Care Except Billable Proc Time Spent: 75-104 minutes Services Performed: Patient management by me, Time spent at bedside, Reviewing test results, Reviewing imaging, Discussing patient care, Documentation in record Scribe Attestation Portions of this note were transcribed by Jen Newman. I, Dr. Wade personally performed the history, physical exam and medical decision-making; I reviewed and confirmed the accuracy of the information in the transcribed note. Signed by: Marimar Caicedo, 02/14/2017 at 1600. copies to: Christ Velez MD; [facility] Dilshad Wade DO Feb 14, 2017 12:57 Jen Newman Feb 14, 2017 13:05
[2017-02-14] MEDS ORDERED: Amiodarone 150 mg/100 mL D5W 150 MG in IV Premix 1 EACH IV ONE ×2 (13:05→13:35)
[2017-02-14] MEDS ORDERED: MeTOProlol 1 mg/mL 5 mL Inj IVPUSH SCH (13:20)
--- NOTE | 2017-02-14 13:48 | DRSVH ---
PROCEDURE: X-RAY CHEST ONE VIEW, PORTABLE ([id number]) INDICATIONS: dyspnea, syncope TECHNIQUE: One view of the chest was acquired. COMPARISON: [facility], CR, XR CHEST 1VW (PORTABLE), 02/08/2017, 14:40. FINDINGS: Surgical changes and devices: Right chest wall AICD and leads appear similar in position. Lungs and pleura: No pleural effusions or pneumothorax. There are acute patchy indistinct ground gl ass opacities in the right midlung zone. Mediastinum: Mediastinal contours appear unchanged. Heart size is enlarged. Bones and chest wall: No suspicious bony lesions. Overlying soft tissues appear unremarkable. IMPRESSION: 1. Patchy right lung opacities are nonspecific but may represent an atypical infection. Recommend c orrelation clinically and followup to demonstrate resolution if indicated. Dictated by: Reid Lambert M.D. on 02/14/2017 at 13:42 Approved by: Reid Lambert M.D. on 02/14/2017 at 13:45
[2017-02-14 13:54] LABS: BASOPHILS % (AUTO) 0.7 % (0-3); EOSINOPHILS % (AUTO) 3.7 % (0-5); MONOCYTES % (AUTO) 9.1 % (4-12); Mean Corpuscular Hemoglobin 35.4 pg (27.0-35.0); Platelet Count 115 bil/L (150-400)
[2017-02-14] MEDS ORDERED: Lidocaine 2% 20 mg/mL 5 mL Cardiac Syringe IV ONE (14:00)
[2017-02-14] MEDS: Amiodarone 360 mg/200 mL D5W 360 MG, Filter, Taxol 14256-28 1 EACH in IV Premix 1 EACH IV SCH ×3 (14:04→20:01)
[2017-02-14] MEDS ORDERED: Lidocaine 2% 20 mg/mL 5 mL Cardiac Syringe ONE (14:06)
[2017-02-14 14:08] LABS: INR 1.67 ratio
[2017-02-14 14:28] LABS: Magnesium 1.4 mg/dL (1.6-2.6)
[2017-02-14 14:29] LABS: TROPONIN T 0.076 ug/L (0.0-0.011)
[2017-02-14] MEDS ORDERED: LIDOCAINE IV SCH (14:30)
[2017-02-14] MEDS ORDERED: [UNRECOGNIZED DRUG - OTHER] IV SCH (14:30)
[2017-02-14] MEDS: D5W IV SCH ×2 (14:57→15:45)
[2017-02-14] MEDS: LIDOCAINE 2 GM/500 ML IV SCH ×2 (14:57→15:45)
[2017-02-14] MEDS ORDERED: Magnesium Sulfate 2 Gm/50 mL Water Premix IV ONE (14:57)
[2017-02-14] MEDS ORDERED: Magnesium Sulf 2 Gm/50mL Water 2 GM in IV Premix 1 EACH IV ONE (15:00)
[2017-02-14] MEDS ORDERED: Ondansetron 2 mg/mL 2 mL Inj IVPUSH ONE (15:10)
[2017-02-14] MEDS ORDERED: EPINEPHrine 0.1 mg/mL 10 mL Syringe IV SCH (15:10)
[2017-02-14] MEDS ORDERED: Rocuronium 10 mg/mL 5 mL Inj IV ONE (15:15)
[2017-02-14] MEDS ORDERED: Propofol 10,000 mCg/mL 100 mL Inj ONE (15:25)
--- NOTE | 2017-02-14 15:30 | PCM.CHPCAR ---
Consult Subjective Date of service Feb 14, 2017 Date of admit Provider Requesting Consult Requesting Provider: Dilshad Wade DO Primary Care Physician Primary Care Physician: Chiki Blair,[facility] Chief Complaint VT History of Present Illness 66-year-old man with history of severe COPD, dilated cardiomyopathy with ICD, VF arrest, on chronic amiodarone therapy, ESRD on HD, and paroxysmal AF on chronic anticoagulation here with recurrent lightheadedness. Patient was admitted earlier this month for similar symptoms and was found to have recurrent nonsustained VT. His amiodarone was increased and he was discharged home. Patient took his medications as prescribed but his lightheadedness continued to persist. Therefore, he came back to our emergency room for further care. Prior to my arrival to the emergency room, I had spoken with the ER physician over the phone and recommended starting IV lidocaine bolus and drip since he was not responding appropriately to IV amiodarone bolus. As I arrived to the emergency room, he continued to have recurrent very frequent nonsustained VT. I spoke with him briefly and asked him whether he would be willing to be intubated and sedated with the understanding that he may not be able to be extubated easily due to his severe COPD and possible competitions from intubation. Patient states that he wants to be intubated but does not want to be intubated forever. During this conversation, patient had an episode of sustained VT and syncope. His AICD device did not fire. Subsequently, he lost his pulse as the pads were being placed. CPR was started and patient received 1 shock that converted him from VT to sinus rhythm. We elected to intubate him afterwards. Patient is in the emergency room by himself and attempts are being made to speak with his son. Review of Systems Review of Systems Unobtainable due to patient condition PMH Past Medical History # Dilated cardiomyopathy with EF 20-25% on Echo 2017 # ESRD on HD # Severe COPD # Paroxysmal atrial flutter and fibrillation s/p ablation: on chronic warfarin Bedside Blood Glucose: 107 Scheduled Albuterol Neb Soln (Albuterol Neb Soln) 2.5 Mg/3 Ml Vial.neb 2.5 MG INHALATION BID (Reported) Amiodarone (Amiodarone) 400 Mg Tablet 400 MG PO BID Amiodarone (Amiodarone) 200 Mg Tablet 200 MG PO BID Budesonide/Formoterol 160-4.5 mcg Inh (Symbicort 160-4.5 mcg Inh) 120 Puff Inhaler 2 PUFF INHALATION BID (Reported) Calcium Carbonate (Tums) 500 Mg Tab.chew 2,000 MG PO BID (Reported) Carvedilol (Carvedilol) 12.5 Mg Tablet 12.5 MG PO DAILY (Reported) Cinacalcet (Sensipar) 30 Mg Tablet 30 MG PO DAILY (Reported) Doxycycline Hyclate (Doxycycline Hyclate) 100 Mg Tablet 100 MG PO BID Fluoxetine (Fluoxetine) 10 Mg Tablet 30 MG PO DAILY (Reported) Furosemide (Furosemide) 40 Mg Tablet 40 MG PO DAILY (Reported) Lisinopril (Lisinopril) 10 Mg Tablet 10 MG PO DAILY (Reported) Pravastatin (Pravastatin) 40 Mg Tablet 40 MG PO DAILY (Reported) Ropinirole (Ropinirole) 0.5 Mg Tablet 0.5 MG PO DAILY (Reported) Sevelamer Carbonate (Renvela) 800 Mg Tablet 800 MG PO TID (Reported) Warfarin Sodium (Warfarin Sodium) 2.5 Mg Tablet 2.5 MG PO DAILY Scheduled PRN Albuterol Sulfate (Proventil HFA Inhaler) 6.7 Gm Hfa.aer.ad 2 PUFF INH Q4 PRN PRN For Shortness of Breath (Reported) Miscellaneous Medications Fluticasone Propionate (Fluticasone Propionate) 50 Mcg/Actuation [place].susp 15.8 ML NS (Reported) Discontinued Medications Amiodarone (Amiodarone) 200 Mg Tablet 200 MG PO DAILY (Reported) Carvedilol (Coreg) 12.5 Mg Tablet 12.5 MG PO BID Fluoxetine (Fluoxetine) 20 Mg Capsule 10 MG PO DAILY (Reported) Hydrocodone-Acetaminophen 5-325 mg (Hydrocodone-Acetaminophen 5-325 mg) 1 Each Tablet 1 TABLET PO Q4H PRN PRN For Pain Ropinirole (Ropinirole) 0.5 Mg Tablet 0.5 MG PO TID (Reported) Warfarin Sodium (Warfarin Sodium) 2.5 Mg Tablet 2.5 MG PO DAILY (Reported) 2.5 mg wed fri sat 3.75 mg sun Warfarin Sodium (Warfarin Sodium) 3 Mg Tablet 3.75 MG PO WED,WED (Reported) Warfarin Sodium (Warfarin Sodium) 2.5 Mg Tablet 2.5 MG PO MON,WED,THUR,FRI,SAT ( Reported) oxyCODONE-Acetaminophen 5-325 mg (oxyCODONE-Acetaminophen 5-325 mg) 1 Each Tablet Unknown Dose PO Q4H PRN PRN For Pain (Reported) Current Inpatient Medications Current Medications Metoprolol Tartrate 5 mg 5 mg Q5MIN IVPUSH Last administered on 02/14/17t 13:24; Admin Dose 5 MG; Start 02/14/17 at 13:20 Lidocaine HCl/ Dextrose 2000 mcg/ Premix 0.5 ml @ 0 mls/hr Q0M IV; Start at 14:30; Stop 02/14/17 at 14:45; Status DC Lidocaine HCl/ Dextrose/Premix 500 ml @ 0 mls/hr Q0M IV; Start 02/14/17 at 14:35 Allergies: Coded Allergies: chlorhexidine (Verified Allergy, Mild, ITCHING, 09/13/16) vancomycin (Verified Adverse Reaction, Severe, NAUSEA/VOMITTING, 02/08/17) Family History Family History Unobtainable due to patient condition Social History Hx Alcohol Use: NoHx Substance Use: NoHx Tobacco Use: Yes Smoking Status: Former Smoker Exam Vital Signs Vital Sign - Last Date Time Temp Pulse Resp B/P Pulse Ox O2 Delivery O2 Flow Rate FiO2 02/14/17 14:31 99 22 99/70 97 Room Air 02/14/17 13:02 36.5 Objective General appearance: intubated, appears older than stated age HEET: Normocephalic atraumatic, no scleral icterus, tongue midline, mucous membranes moist Neck: supple Cardiovascular: RRR Respiratory: Fair aeration Abdomen: Soft, nontender, nondistended, + bowel sounds Neuro: Alert, no facial droop, tongue midline, no gross motor deficits Psych: anxious Skin: no rashes on face, neck, and lower extremities Lab and Diagnostics Result Diagram: 02/14/17 1320 02/14/17 1320 X-Rays, CTs and MRIs Echo 09/2016: 1) Severely dilated left ventricle with severely reduced systolic function (EF 20-25%). 2) Global hypokinesis but the apical third appears akinetic. 3) Mildly dilated right ventricle with mildly reduced function.Pacemaker lead visualized in the right ventricle. 4) Severe biatrial enlargement. 5) Moderate mitral regurgitation present. 6) Moderate to severe tricuspid regurgitation present. 7) Elevated right sided and left sided filling pressures. 8) Mild abdominal ascites noted. 9) Compared to the Echo done 01/23/2016, no significant change. Assessment & Plan Assessment 66-year-old man with history of severe COPD, dilated cardiomyopathy with ICD, VF arrest, on chronic amiodarone therapy, ESRD on HD, and paroxysmal AF on chronic anticoagulation here with recurrent lightheadedness and then suffering VT cardiac arrest in the ER. # VT cardiac arrest/VT storm: Patient having recurrent VT despite being on chronic amiodarone therapy. Triggers for his VT could include hypomagnesemia, ischemic heart disease, or worsening heart function. Patient intubated after having VT cardiac arrest. Intubation appears to have better electrical stability from a rhythm standpoint. Recommendations as below: - Ischemic evaluation in 1-2 days once electrically stable - Replenish Magnesium to keep it over 2. Ensure potassium is also over 4. - Continue amiodarone gtt - Continue lidocaine gtt - Interrogate device tomorrow and consult EP to figure out why it didn't fire in the ED when the patient had VT cardiac arrest. # Dilated cardiomyopathy with EF 20-25% on Echo 2017. Etiology unclear to me as I don't see any cath report in [employer] or [facility]. Recommendations as below : - Continue carvedilol 6.25mg bid if BP allows - Continue lisinopril low dose if BP allows # ESRD on HD: per nephrology. # Severe COPD: patient is intubated for VT storm. Defer ventilatory management to ICU team. # Paroxysmal atrial flutter and fibrillation s/p ablation: on chronic warfarin. - Ok to hold warfarin for potential procedures - Continue amiodarone Time spent I spent 90 minutes of critical care time taking care of this patient (managing ventricular tachycardia, coordinating care with EP). Lizett Ware MD Feb 14, 2017 15:30
--- NOTE | 2017-02-14 15:34 | PCM.HPMED ---
Subjective Date of Service Feb 14, 2017 Primary Provider: Admitting Physician: Shin Walker MD [facility]: Shin Walker MD Admit Status: From the Emergency Department, Full Admit, Critical Care Chief Complaint: Syncopal episode. Recurrent ventricular tachycardia, possible PEA arrest followed by CPR. History of Present Illness: This is a 58-year-old gentleman with a known history of chronic systolic heart failure and recurrent ventricular tachycardia with an ICD placed. He was just in the hospital for ventricular tachycardia at which time he had an amiodarone IV load as well as an increase in his oral medication at the time of discharge. The patient had been in the hospital for about 2 days and had no recurrent ventricular tachycardia. He was seen by cardiology. Today at home the patient had a syncopal episode. He states it felt identical to his previous episode of ventricular tachycardia. This information was provided to the ER doctor and transmitted to me. The patient presented to the hospital by EMS. Here he was initially in a paced rhythm at 50. The patient then went into a wide complex tachycardia consistent with recurrent ventricular tachycardia. He then lost his pulse and become unresponsive. CPR was started and he was defibrillated. The patient did not convert initially but then did go back into a paced rhythm. The patient then had difficulties with airway became hypoxic and obtunded. The patient was given rapid sequence intubation medications and intubated with a quad scope. 2 attempts were made, first with resident physician with good visualization of records but esophageal intubation. The patient was bag ventilated to saturations 100% and again preoxygenated. A second attempt was made for grade 1 view and successful intubation of the trachea. This was confirmed with Telemetry and breath sounds. The patient was then started on propofol. His R rhythm at this point was a paced rhythm at 50. Patient was given both the amiodarone loading drip as well as lidocaine loading drip and EGD. Dr. Ware of cardiology attended part of the resuscitation effort. Discussions with him indicated that he would like to continue both drips concurrently. The patient can provide no history or review of systems as he was intubated prior just prior to my involvement. Review of Systems: Unobtainable as outlined above Allergies Coded Allergies: chlorhexidine (Verified Allergy, Mild, ITCHING, 09/13/16) vancomycin (Verified Adverse Reaction, Severe, NAUSEA/VOMITTING, 02/08/17) Home Medications Albuterol Neb Soln (Albuterol Neb Soln) 2.5 Mg/3 Ml Vial.neb 2.5 MG INHALATION BID Amiodarone (Amiodarone) 400 Mg Tablet 400 MG PO BID Amiodarone (Amiodarone) 200 Mg Tablet 200 MG PO BID Budesonide/Formoterol 160-4.5 mcg Inh (Symbicort 160-4.5 mcg Inh) 120 Puff Inhaler 2 PUFF INHALATION BID Calcium Carbonate (Tums) 500 Mg Tab.chew 2,000 MG PO BID Carvedilol (Carvedilol) 12.5 Mg Tablet 12.5 MG PO DAILY Cinacalcet (Sensipar) 30 Mg Tablet 30 MG PO DAILY Doxycycline Hyclate (Doxycycline Hyclate) 100 Mg Tablet 100 MG PO BID Fluoxetine (Fluoxetine) 10 Mg Tablet 30 MG PO DAILY Furosemide (Furosemide) 40 Mg Tablet 40 MG PO DAILY Lisinopril (Lisinopril) 10 Mg Tablet 10 MG PO DAILY Pravastatin (Pravastatin) 40 Mg Tablet 40 MG PO DAILY Ropinirole (Ropinirole) 0.5 Mg Tablet 0.5 MG PO DAILY Sevelamer Carbonate (Renvela) 800 Mg Tablet 800 MG PO TID Warfarin Sodium (Warfarin Sodium) 2.5 Mg Tablet 2.5 MG PO DAILY Scheduled PRN Albuterol Sulfate (Proventil HFA Inhaler) 6.7 Gm Hfa.aer.ad 2 PUFF INH Q4 PRN PRN For Shortness of Breath Miscellaneous Medications Fluticasone Propionate (Fluticasone Propionate) 50 Mcg/Actuation Magnolia.susp 15.8 ML NS PMH AICD 11/21 Abdominal Aortic Aneurism Congestive heart failure, chronic, systolic dysfunction. Hypertension Hyperlipidemia Pacemaker Thrombophlebitis (FEET) Valvular Heart Disease (echo 01/2016- ef <20%) COPD ESRD on HD Dyspnea (NUNO) Pneumonia Pulmonary Embolism (HX OF) - On Warfarin Scrotal Mass (S/P HYDROCELECTOMY) Pressure Ulcers (left foot- sees wound care 2xweekly) Anxiety Hx Depression Hx of ventricular tachycardia Surgical History Appendectomy tonsils, hydrocele, AMP LT SMALL TOE, AICD, A/V FISTULA/ANGIOPLASTY tunnel hemodialysis catheter Family History Unobtainable due to patient's status Social History Occupation: retired Hx Alcohol Use: No Hx Substance Use: No Hx Tobacco Use: Yes Smoking Status: Former Smoker Living Arrangement: Alone Exam Vital Signs Vital Sign - Last Date Time Temp Pulse Resp B/P Pulse Ox O2 Delivery O2 Flow Rate FiO2 02/14/17 15:03 98 14 104/71 98 Room Air 02/14/17 13:02 36.5 Exam Patient is sedated, and intubated. NG tube is in place. Normal skull. Normal nose and ears. Anicteric sclera, symmetric pupils Oropharynx is unremarkable, no facial droop. Neck is supple, normal thyroid. No adenopathy. Lungs are clear, normal effort rate. Some rales after intubation. Heart is regular without murmur gallop or rub. Abdomen soft, nondistended or tender. Extremities are free of pedal edema. Good radial and pedal pulses. Skin : Both feet are wrapped. No petechiae or ecchymosis. Joints are grossly normal. Cranial nerves are grossly normal. Motor strength is normal in all extremities. Normal muscular tone. Lab and Diagnostics Result Diagram: 02/14/17 1320 02/14/17 1320 X-Rays, CTs and MRIs Right lung base shows patchy infiltrate. 12-lead ECG Paced rhythm of 50 Assessment & Plan Cardiac arrest, just after arrival. The patient was resuscitated with defibrillation and CPR. He was then intubated. The patient was alert just prior. No hypothermia protocol is indicated. At this point we will continue to leave him on the ventilator and sedated with propofol if blood pressures tolerated. Recurrent ventricular tachycardia, POA. The plan now is to continue an amiodarone drip and patient will be followed by cardiology. His ICD will be reinvestigated to check thresholds. It seems possible that his threshold is below [place] ventricular tachycardia rate. Chronic systolic heart failure, POA. This appears to not be active. Both continue to follow clinically. Hypomagnesemia, POA. We will replete with 2 g of IV magnesium and remeasure End-stage renal disease, POA. Dialysis likely tomorrow if tolerated. Patient's POLST reflects full resuscitation measures and intubation. Pain Evaluation: Adequate Pain Control Resuscitation Status: CPR: Attempt Resuscitation Time spent 60 minutes of critical care time Shin Walker MD Feb 14, 2017 15:34
[2017-02-14] MEDS ORDERED: Polyethylene Glycol (PEG) 17 Gm Powder PO PRN (15:45)
[2017-02-14] MEDS ORDERED: Acetaminophen IV 1,000 MG in IV Premix 1 EACH IV PRN (15:45)
[2017-02-14] MEDS ORDERED: Ondansetron 2 mg/mL 2 mL Inj IVPUSH PRN (15:45)
[2017-02-14] MEDS: Propofol Inj 1,000,000 MCG in IV Premix 1 EACH IV SCH (15:45)
--- NOTE | 2017-02-14 16:06 | DRSVH ---
PROCEDURE: X-RAY CHEST ONE VIEW, PORTABLE ([id number]) INDICATIONS: intubation TECHNIQUE: One view of the chest was acquired. COMPARISON: [facility], CR, XR CHEST 1VW (PORTABLE), 02/14/2017, 13:01. FINDINGS: Surgical changes and devices: There is a new endotracheal tube with the tip approximately 6 cm from t he jennifer. A new nasogastric tube is also demonstrated extending into the stomach. Right chest wall AICD and leads appear similar in position. Lungs and pleura: No pleural effusions or pneumothorax. There is mild interstitial prominence sugge sting mild pulmonary edema. There are a few indistinct patchy ground glass opacities in the right shane ng again noted Mediastinum: Mediastinal contours appear prominent likely due to low volumes and portable supine cony hnique. Heart size is borderline enlarged. Bones and chest wall: No suspicious bony lesions. Overlying soft tissues appear unremarkable. IMPRESSION: 1. New endotracheal and nasogastric tubes as described. Consider further advancement of the endotra cheal tube by approximately 2 cm. 2. Mild interstitial edema. 3. Indistinct ground glass opacities redemonstrated in the right midlung are nonspecific and may ref lect infection or asymmetric edema among other etiologies. 4. Prominence of the mediastinal contours likely due to technique. Recommend attention on followup. Dictated by: Reid Lambert M.D. on 02/14/2017 at 16:00 Approved by: Reid Lambert M.D. on 02/14/2017 at 16:04
--- NOTE | 2017-02-14 16:48 | DRSVH ---
PROCEDURE: CT ANGIO CHEST PULMONARY EMBOLISM ([id number]) INDICATIONS: Syncope and history of pulmonary embolism. TECHNIQUE: After the administration of intravenous contrast, 2 mm thick sections acquired from the pulmonary api gabino to the posterior costophrenic angles. 3-dimensional maximum intensity projection (MIP) coronal a nd sagittal reformats were then acquired through the thorax. For radiation dose reduction, the follo wing was used: automated exposure control, adjustment of mA and/or kV according to patient size. COMPARISON: [facility], CT, CT CHEST ABD PELVIS W CON, 02/04/2017, 8:52. FINDINGS: Image quality: There is streak artifact associated with patient's right chest AICD device. Motion ar tifact is also present limiting evaluation. Pulmonary arteries: Pulmonary arteries demonstrate no intraluminal filling defects to suggest centra l pulmonary embolism, with evaluation of the subsegmental branches limited do to motion artifact. Th ere is enlargement of the pulmonary arteries, with the main pulmonary artery measuring up to 3.6 cm s uggesting pulmonary arterial hypertension. Lungs and pleura: There are bilateral groundglass opacities with multiple thickening consistent with pulmonary edema. There are small bilateral pleural effusions with associated compressive atelectasi s. A small amount of edema is noted tracking along the right major and minor fissures. There are mi ld centrilobular and paraseptal emphysematous changes bilaterally. There is a small peripheral subpl eural nodule in the left upper lobe measuring approximately 5 mm which appears similar to the prior s tudy. There is an endotracheal tube with the tip approximately 4 cm from the jennifer. A right chest wall AICD is demonstrated with the leads extending into the right atrium, right ventricle, and f[place] ry sinus. Mediastinum: Heart size is enlarged, without pericardial effusion. Thoracic aorta is normal in ca liber. There are mildly enlarged mediastinal and right hilar lymph nodes with confluence in the righ t hilum associated with bronchovascular encasement. Findings are increased in prominence from the pr ior study. Esophagus is normal in caliber, without hiatal hernia. Bones and chest wall: No suspicious bony lesions. Ribs and thoracic spine appear intact throughout. Thyroid gland is heterogeneous in appearance without focal dominant nodules identified. No axillar y or supraclavicular adenopathy. Abdomen: Visualized upper abdomen demonstrates reflux of contrast into the inferior vena cava and he patic veins suggesting elevated right heart filling pressures. There is a nasogastric tube partially visualized in the stomach. The liver demonstrates a nodular contour consistent with cirrhosis. The re is ascites demonstrated in the upper abdomen. IMPRESSION: 1. No definite central pulmonary embolism with evaluation of subsegmental branches limited due to mo tion artifact. Enlargement of the pulmonary arteries is demonstrated suggesting pulmonary arterial h ypertension. 2. Small pleural effusions and mild pulmonary edema. 3. Endotracheal tube tip approximately 4 cm from the jennifer. 4. Mildly enlarged mediastinal and right hilar lymph nodes appear slightly increased from the prior study with mild bronchovascular encasement in the right hilum. The findings are nonspecific and may be reactive but followup is recommended to demonstrate resolution. Dictated by: Reid Lambert M.D. on 02/14/2017 at 16:37 Approved by: Reid Lambert M.D. on 02/14/2017 at 16:46
[2017-02-14] MEDS ORDERED: fentaNYL 2,500 mCg/250 mL 2,500 MCG in IV Premix 1 EACH IV SCH (16:55)
[2017-02-14] MEDS: 0.9% Sodium Chloride 1,000 ML IV SCH (17:20)
[2017-02-14] MEDS: Chlorhexidine 0.12% 15 mL Oral Solution MT SCH ×2 (17:51→19:19)
[2017-02-14] MEDS: Famotidine Inj 50 ML IV SCH (17:51)
--- NOTE | 2017-02-14 18:14 | ABG ---
DateTimeAnalyzed 18:08:00 -_ pH ____7.530 - 7.350 7.450 pCO2 ___28.2__ -mmHg 35.0 45.0 pO2 207 -mmHg 69.0 116 HCO3- ___23.4__ -mmol/L 22.0 26.0 ABE ____1.6__ -mmol/L -2.0 2.0 FIO2 ___50.0__ -% Drawn By jmw - Age 59 -years B 759 -mmHg tO2 ___14.4__ -Vol%
--- NOTE | 2017-02-14 19:44 | ABG ---
DateTimeAnalyzed 19:37:00 -_ pH ____7.549 - 7.350 7.450 pCO2 ___27.6__ -mmHg 35.0 45.0 pO2 232 -mmHg 69.0 116 HCO3- ___24.0__ -mmol/L 22.0 26.0 ABE ____2.5__ -mmol/L -2.0 2.0 tHb ___11.0__ -g/dL O2Hb ___95.8__ -% COHb ____2.3__ -% MetHb ____0.3__ -% sO2 ___98.4__ -% 25.0 FIO2 ___50.0__ -% PRVC 580 - PEEP ____5.0__ -cmH2O Set_RR ___18.0__ -b/min Vt __580.0__ -L Drawn By jh - Date/Time Notified____ 19:44:00 -_ Spontaneous_RR ___18.0__ -b/min Oxygen Device 1 VENTILATOR - Notified By jh - Notified Whom __johnson - Age 59 -years B 758 -mmHg tO2 ___15.3__ -Vol% Shin test _Positive -
[2017-02-14 19:52] LABS: APPEARANCE,URINE HAZY (CLEAR,HAZY); COLOR,URINE DARK YELLOW (YELLOW); OCCULT BLOOD,URINE MODERATE (NEGATIVE); UROBILINOGEN,URINE NORMAL (NORMAL)
[2017-02-14] MEDS ORDERED: Amiodarone 360 mg/200 mL D5W Premix IV ONE (19:58)
[2017-02-14] MEDS ORDERED: IV Premix 1 EACH IV ONE (19:58)
[2017-02-14] MEDS: Albuterol-Ipratropium 3 mL Inhalation Solution NEB SCH (21:05)
[2017-02-15] VITALS (16 sets, daily range): BP systolic 97–122; BP diastolic 50–70; PULSE 50–60; RESP 13–24; O2SAT 92–100
[2017-02-15] MEDS: Chlorhexidine 0.12% 15 mL Oral Solution MT SCH ×6 (00:30→20:30)
--- NOTE | 2017-02-15 01:25 | ABG ---
DateTimeAnalyzed 01:18:00 -_ pH ____7.481 - 7.350 7.450 pCO2 ___35.6__ -mmHg 35.0 45.0 pO2 ___99.3__ -mmHg 69.0 116 HCO3- ___26.3__ -mmol/L 22.0 26.0 ABE ____3.2__ -mmol/L -2.0 2.0 tHb ___10.6__ -g/dL O2Hb ___94.2__ -% COHb ____2.3__ -% MetHb ____0.0__ -% sO2 ___96.4__ -% 25.0 FIO2 ___40.0__ -% PRVC 580 - PEEP ____5.0__ -cmH2O Set_RR ___16.0__ -b/min Vt __500.0__ -L Drawn By jh - Date/Time Notified____ 01:24:00 -_ Spontaneous_RR ___16.0__ -b/min Oxygen Device 1 VENTILATOR - Notified By jh - Notified Whom __johnson - Age 59 -years B 758 -mmHg tO2 ___14.2__ -Vol% Shin test _Positive -
[2017-02-15] MEDS: Albuterol-Ipratropium 3 mL Inhalation Solution NEB SCH ×4 (03:14→22:00)
[2017-02-15] MEDS: Propofol Inj 1,000,000 MCG in IV Premix 1 EACH IV SCH (03:33)
[2017-02-15 04:30] LABS: Mean Corpuscular Hemoglobin 35.1 pg (27.0-35.0); Mean Corpuscular Volume 108.1 fL (81-100)
[2017-02-15 04:45] LABS: INR 1.83 ratio
[2017-02-15] MEDS ORDERED: Magnesium Sulf 2 Gm/50mL Water 2 GM in IV Premix 1 EACH IV ONE (05:30)
[2017-02-15] MEDS ORDERED: Calcium GLUCO 10% (mEq) Inj 13.95 MEQ in Dextrose 5% 100 ML IV ONE (06:00)
[2017-02-15] MEDS ORDERED: Amiodarone 360 mg/200 mL D5W Premix IV ONE ×2 (06:39→18:17)
[2017-02-15] MEDS ORDERED: IV Premix 1 EACH IV ONE ×2 (06:39→18:17)
[2017-02-15] MEDS: Amiodarone 360 mg/200 mL D5W 360 MG, Filter, Taxol 14256-28 1 EACH in IV Premix 1 EACH IV SCH ×2 (06:41→18:19)
--- NOTE | 2017-02-15 09:06 | DRSVH ---
PROCEDURE: X-RAY CHEST ONE VIEW, PORTABLE ([id number]) INDICATIONS: aspiration TECHNIQUE: One view of the chest was acquired. COMPARISON: [facility], CR, XR CHEST 1VW (PORTABLE), 02/14/2017, 15:14. FINDINGS: Surgical changes and devices: Endotracheal tube is present approximately 28 mm superior to the jennifer . Nasogastric tube and pacemaker unchanged. Lungs and pleura: There is an overall appearance of mild increased pulmonary vascularity. Limited ángel luation of the lungs is noted secondary to overlying pacemaker and leads. Mediastinum: Mediastinal contours appear normal. Heart size is normal. Bones and chest wall: No suspicious bony lesions. Overlying soft tissues appear unremarkable. IMPRESSION: Mild appearance of increased pulmonary vascularity suggestive of edema. No focal infiltra te. Dictated by: Jovana Andrade M.D. on 02/15/2017 at 9:03 Approved by: Jovana Andrade M.D. on 02/15/2017 at 9:04
--- NOTE | 2017-02-15 10:27 | PCM.PNMED ---
Subjective Date of Service Feb 15, 2017 Subjective Patient is intubated. He is easily arousable and denies any chest pain. More detailed ROS subjective not obtainable due to intubation. No overnight events, no arrhythmia. Exam Vital Signs Vital Sign - Last Date Time Temp Pulse Resp B/P Pulse Ox O2 Delivery O2 Flow Rate FiO2 02/15/17 10:19 50 109/58 100 35 02/15/17 07:42 36.3 16 Mechanical Ventilator Intake and Output 02/14/17 02/14/17 02/15/17 Cumulative From/Thru 15:00 23:00 07:00 02/14/17 13:02 - 02/15/17 06:20 Intake Total 10 ml 850 ml 860 ml Output Total 15 ml 125 ml 140 ml Balance -5 ml 725 ml 720 ml Intake IV Total 10 ml 850 ml 860 ml Output Urine Total 15 ml 25 ml 40 ml Gastric Drainage Total 100 ml 100 ml Exam Alert and intubated, calm. Anicteric sclera. Lungs are clear with normal rate and effort Heart is regular without murmur gallop or rub Abdomen soft nontender, flat Extremities are free of edema. Skin is free of rash or lesions. Both feet are wrapped. IVs and Medications Medications Reviewed: Medications were reviewed in detail Lab and Diagnostics Result Diagram: 02/15/17 0350 02/15/17 0350 X-Rays, CTs and MRIs Right lung base shows patchy infiltrate. 12-lead ECG Paced rhythm of 50 Assessment & Plan Intubated for airway protection, stable. The patient appears to be doing well this morning. We will decrease his sedation performed breathing trial and aim to extubate. Recurrent ventricular tachycardia, POA. The patient's unstable overnight on amiodarone and lidocaine drip. Will discuss with cardiology. The initial indications were consideration of coronary angiogram rule out obstructive coronary artery disease as a contributing factor to his recalcitrant ventricular tachycardia Chronic systolic heart failure, POA. Saline stable. Hypomagnesemia, POA. Improved after repletion. Follow clinically. End-stage renal disease, POA. Dialysis today. Chronic obstructive pulmonary disease, POA. Stable. There is no evidence of acute exacerbation. Resume usual medications. Patient's POLST reflects full resuscitation measures and intubation. Inpatient status, 2 nights length of stay expected. VTE Mechanical Devices: Intermittant Pneumatic CD Resuscitation Status: CPR: Attempt Resuscitation Shin Walker MD Feb 15, 2017 10:27
[2017-02-15] MEDS: Famotidine Inj 50 ML IV SCH (11:09)
[2017-02-15] MEDS: D5W IV SCH (16:25)
[2017-02-15] MEDS: LIDOCAINE 2 GM/500 ML IV SCH (16:25)
[2017-02-15] MEDS: 0.9% Sodium Chloride 1,000 ML IV SCH (16:25)
--- NOTE | 2017-02-15 16:29 | CONS ---
[address] [address] CONSULTATION REPORT PATIENT: DANISHA BAI : 1950 MR#: [id number] ADMIT: 02/14/2017 JOB ID: [id number] DATE OF SERVICE: 02/15/2017 MECHANICAL VENTILATION INITIAL EVALUATION: REQUESTING PHYSICIAN: Shin Walker MD. REASON FOR CONSULTATION: Extubation. HISTORY OF PRESENT ILLNESS: The patient is a 66-year-old, male who has had repeated problems with ventricular tachycardias. Suffered from an episode of V-tach recently. Was given amiodarone loading dose as well as increased dose of his oral medication. However, day of admission, had a syncopal episode. The patient initially in a paced rhythm. Had problems with hypoxemia and obtundation possibly related to the V-tach. In any case, he was subsequently intubated. Otherwise has been doing fairly well. Does have a past medical history of COPD. He uses inhaled medications, notably albuterol inhaler, as well as Symbicort inhaler. Also is on warfarin for pulmonary embolism. Other historical details include systolic dysfunction, history of hypertension and hyperlipidemia, thrombophlebitis, end-stage renal disease. MEDICATIONS ON ADMISSION: Include albuterol nebulized solution, amiodarone, Symbicort, calcium carbonate, carvedilol, Cinacalcet, doxycycline, fluoxetine, furosemide, lisinopril, pravastatin, ropinirole, sevelamer and warfarin. ALLERGIES: Include: 1. VANCOMYCIN. 2. CHLORHEXIDINE. REVIEW OF SYSTEMS: Unable to obtain as the patient is intubated and sedated. Respiratory therapy indicates that they tried a pressure support trial but he became quite sleepy. OBJECTIVE: Pulse 50 and 100% paced. Blood pressure 109/58. O2 sat on FiO2 35%, PEEP of 5 is 100%. General appearance: Somewhat lethargic. Opens eyes to verbal stimuli. Nose and throat could not be examined. Chest: Significantly diminished breath sounds, especially in the lower lung kee on the left. Better breath sounds on the right and in the upper lung kee. Heart: Regular rhythm. Heart tones seem normal. Abdomen soft. Bowel tones present. Extremities: No pretibial edema. LABORATORY DATA: Noted with a white count of 6900. Hemoglobin 10.4. Platelet count 85,000. Sodium 134, potassium 4.4, chloride 93, CO2 is 23. BUN 57, creatinine 6.08. Calcium 6.4. Magnesium 1.8. The patient's propofol and fentanyl were held. His mental status improved significantly. Awake alert, conversant. Did a pressure support trial of about 45 minutes. He did quite well. No particular problems. Remained awake. The patient was extubated without difficulty. Currently not even receiving supplemental oxygen to maintain O2 sat of 96%. Speaking easily. No stridor. No use of the accessory muscles of the neck. ASSESSMENT: 1. COPD. The patient was intubated for airway protection. Now more awake. Discussed with Cardiology. They would prefer the patient to be extubated. The question arose as they were considering cardiac catheterization to rule out any coronary artery disease causing the arrhythmias. 2. Electrolyte abnormalities. Receiving supplemental medications at this time. Will hold sedatives and analgesics as they were only being used so he would tolerate the endotracheal tube. Apparently, the patient is scheduled for dialysis this afternoon. PLAN: 1. Continue current pulmonary medications. 2. Patient extubated without difficulty.
--- NOTE | 2017-02-15 19:54 | CONS ---
[address] [address] CONSULTATION REPORT PATIENT: DANISHA BAI : 1950 MR#: [id number] ADMIT: 02/14/2017 JOB ID: [id number] DATE OF SERVICE: 02/15/2017 HISTORY: The patient is a very pleasant, 66-year-old, white male who was admitted to [facility] for recurrent ventricular tachycardia and PEA arrest. He has a history of end-stage renal disease and renal consultation is being sought for further management of his chronic kidney disease. He states that for the last several days, he has been having some syncopal and near syncopal episodes associated with palpitations. He had a syncopal episode and subsequently was brought into the emergency department where he underwent a cardiac arrest. CPR was immediately started, and he was defibrillated several times along with being intubated. He was able to restore his paced rhythm. At the time I saw him this morning, he was already extubated and able to answer questions appropriately. He has approximately a 2-3 year history of end-stage renal disease and dialyzes at [facility] on Wednesday, Wednesday, and Wednesday. His last dialysis was on Wednesday. He is unsure as to the etiology of his renal failure, however, he denies a history of diabetes but does have a history of hypertension and significant chronic systolic heart failure. He states that prior to Wednesday he was feeling well and was able to perform his limited activities of daily living without significant problems or restriction. Prior to this he denied any headache, chest pain, shortness of breath, cough, wheezing, orthopnea, PND, nausea, vomiting, or diarrhea. PAST MEDICAL HISTORY: Significant for end-stage renal disease, severe systolic dysfunction with valvular heart disease, and an ejection fraction of less than 20%, AICD placement, abdominal aortic aneurysm, hyperlipidemia, COPD, pulmonary embolism for which he is on warfarin, anxiety and depression along with a history of ventricular tachycardia. PAST SURGICAL HISTORY: Significant for an appendectomy, tonsillectomy, revision of a hydrocele, amputation of left small toe, AICD placement, AV fistula with subsequent angioplasty and placement of a tunneled dialysis catheter. ALLERGIES: He is allergic to CHLORHEXIDINE and VANCOMYCIN. SOCIAL HISTORY: He has a greater than [id number] smoking history, and he states that he used tobacco prior to yesterday's events. He denies use of alcohol or illicit drugs. MEDICATIONS: At time of admission include: 1. Albuterol. 2. Amiodarone. 3. Budesonide. 4. inhaler. 5. Symbicort. 6. Calcium carbonate. 7. Carvedilol. 8. Cinacalcet. 9. Doxycycline. 10. Fluoxetine. 11. Furosemide. 12. Lisinopril. 13. Pravastatin. 14. Ropinirole. 15. . 16. Warfarin. FAMILY HISTORY: Unremarkable. REVIEW OF SYSTEMS: As detailed above. PHYSICAL EXAMINATION: Revealed a pale, thin, somewhat cachectic-appearing, 66-year-old, white male who was alert and oriented x3, in no distress at time my evaluation. His blood pressure was 109/80 with a heart rate of 52. HEENT examination is remarkable for pale sclerae. Neck is supple without adenopathy, thyromegaly, however, there was some mild jugular venous distention at 75 degrees elevation. Lungs showed some increased AP diameter and diminished breath sounds bilaterally. There was evidence of hyperresonance to his lung kee. Heart was regular and rhythmical. Abdomen showed diminished bowel sounds and some mild distention with tympany noted. There was no tenderness, rebound, guarding, masses or hepatosplenomegaly. Extremities do not show any evidence of any clubbing, cyanosis, or edema. Skin turgor is good. LABORATORY EXAMINATION: This morning his hemoglobin is 10.4, hematocrit 32.0, MCV was elevated at 108, platelet count was 85,000. Sodium was 134, potassium 4.4, chloride 93, bicarbonate 23, BUN and creatinine were 57 and 6.01. IMPRESSION: 1. End-stage renal disease-dialysis dependent. 2. Hypertension with hypertensive heart disease and hypertensive nephrosclerosis. 3. Recurrent ventricular tachycardia with arrest. RECOMMENDATION: The patient is to be dialyzed today for 4 hours on a max dialyzer, 3 potassium bath, 1000 of heparin and 500 per hour, 400 blood flow with a 600 dialysate flow. We are going to try to take 1-2 L as tolerated. Once again, I would like to thank you for allowing me to participate in the care of this most pleasant and interesting patient, and I will be following him closely with you.
--- NOTE | 2017-02-15 20:09 | PROG NOTE ---
[address] [address] PROGRESS NOTE PATIENT: DANISHA BAI : 1950 MR#: [id number] ADMIT: 02/14/2017 JOB ID: [id number] DATE: 02/15/2017 IDENTIFICATION AND INTERIM HISTORY: The patient is a pleasant, 66-year-old man whom I know well from the outpatient arena. He has severe dilated cardiomyopathy with ejection fraction 20% to 25%, complete heart block, end-stage renal disease on hemodialysis, COPD advanced on oxygen, paroxysmal atrial fibrillation on anticoagulation, ventricular tachycardia, status post appropriate ICD discharges in the past, on chronic amiodarone therapy. He was admitted recently with recurrent ventricular tachycardia for which his amiodarone was titrated. He was monitored and discharged home. He returned to the hospital yesterday with sustained ventricular tachycardia that is fell below his detection rate on his ICD. He received brief CPR and external defibrillation. He was maintained on mechanical ventilation and IV amiodarone along with IV lidocaine overnight. Today, I visited with him late in the afternoon when he was being dialyzed. He is in good spirits and off oxygen. He reports soreness in his chest from chest compressions but otherwise is doing well. He has remained hemodynamically stable. He remains on lidocaine and amiodarone drips. IMPRESSION AND RECOMMENDATION: The patient is a pleasant, 66-year-old man with severe dilated cardiomyopathy, ejection fraction 25%, moderate mitral regurgitation, complete heart block with a biventricular ICD in place, atrial fibrillation on anticoagulation, end-stage renal disease on hemodialysis, advanced chronic obstructive pulmonary disease who has recurrent ventricular tachycardia. We have reprogrammed his ICD to allow for therapies at slower rates. I offered him the options of medical therapy versus catheter ablation. Given his overall medical state and his wishes, he opts for medical therapy. To that end, I would like to continue IV amiodarone at 1 mg/minute and IV lidocaine at 1 mg/minute overnight tonight. We will reassess him tomorrow and if he has remained stable from a rhythmic perspective, we will work on transitioning him to oral amiodarone as well as oral mexiletine. I think an ischemic evaluation by way of an angiogram is not unreasonable. I will leave this to Dr. Low to decide. PLAN: 1. Continue IV amiodarone and lidocaine at current doses. 2. Transition to oral mexiletine and oral amiodarone tomorrow if remains stable. 3. Consideration for coronary angiography. Thank you very much for allowing me to participate in the care of this patient. Please call with any questions. MTDD
[2017-02-16] VITALS (12 sets, daily range): BP systolic 89–115; BP diastolic 44–76; PULSE 51–88; RESP 2–20; O2SAT 92–100
[2017-02-16] MEDS ORDERED: IV Premix 1 EACH IV ONE (04:45)
[2017-02-16] MEDS ORDERED: Amiodarone 360 mg/200 mL D5W Premix IV ONE (04:45)
[2017-02-16] MEDS: Amiodarone 360 mg/200 mL D5W 360 MG, Filter, Taxol 14256-28 1 EACH in IV Premix 1 EACH IV SCH (04:52)
[2017-02-16] MEDS: Albuterol-Ipratropium 3 mL Inhalation Solution NEB SCH ×5 (04:53→23:52)
--- NOTE | 2017-02-16 07:58 | PCM.PNMED ---
Subjective Date of Service Feb 16, 2017 Subjective Patient is doing well. No dyspnea. A cough productive of clear phlegm. Some chest pain with breathing and movement from CPR. No nausea or abdominal pain. He has been having episodes of VT with minimal movement. He continues to be on a lidocaine and amiodarone drip. No nausea or abdominal pain. No other overnight events noted. Exam Vital Signs Vital Sign - Last Date Time Temp Pulse Resp B/P Pulse Ox O2 Delivery O2 Flow Rate FiO2 02/16/17 07:27 36.7 53 2 93/44 97 02/16/17 07:27 Ventilator 02/16/17 04:53 2.00 02/15/17 10:19 35 Intake and Output 02/15/17 02/15/17 02/16/17 Cumulative From/Thru 15:00 23:00 07:00 02/14/17 13:02 - 02/16/17 05:21 Intake Total 713 ml 430 ml 2003 ml Output Total 2030 ml 10 ml 2180 ml Balance -1317 ml 420 ml -177 ml Intake IV Total 713 ml 430 ml 2003 ml Output Urine Total 30 ml 10 ml 80 ml Gastric Drainage Total 100 ml Ultrafiltrate 2000 ml 2000 ml # Bowel Movements 0 0 Exam Alert and oriented -3, no distress. Fluent speech Anicteric sclera. Lungs are clear with normal rate and effort Heart is regular without murmur gallop or rub Abdomen soft nontender, flat Extremities are free of edema. Skin is free of rash or lesions. IVs and Medications Medications Reviewed: Medications were reviewed in detail Lab and Diagnostics Result Diagram: 02/15/17 0350 02/15/17 0350 X-Rays, CTs and MRIs Right lung base shows patchy infiltrate. 12-lead ECG Paced rhythm of 50 Assessment & Plan Patient was extubated yesterday. He was primarily admitted for airway protection. This is during her resuscitation in the ED. Recurrent ventricular tachycardia, POA and active. Patient continues to be on amiodarone and lidocaine drips. He is being followed by EPS. The patient will have thresholds for device check today. The consideration by interventional is not angiogram to rule out evidence of critical obstructive coronary artery disease. Cardiology is indicated that they will attempt coronary catheterization tomorrow, February 17 Chronic systolic heart failure, POA. Currently stable. Avoid fluid overload. She remains clinically stable. Hypomagnesemia, POA. Improved after repletion. Follow clinically. We will follow-up with a magnesium today. End-stage renal disease, POA. Dialysis yesterday. He is due for dialysis again on Wednesday. This has to be coordinated with coronary angiogram. Chronic obstructive pulmonary disease, POA. Stable. There is no evidence of acute exacerbation. Resume usual medications. This remains clinically stable. Chronic leg wounds. POA and stable. Continue wound care. Patient's POLST reflects full resuscitation measures and intubation. Inpatient status, 2 nights length of stay expected. VTE Mechanical Devices: Intermittant Pneumatic CD Resuscitation Status: CPR: Attempt Resuscitation Shin Walker MD Feb 16, 2017 07:57
[2017-02-16] MEDS: Famotidine Inj 50 ML IV SCH (08:35)
[2017-02-16 09:44] LABS: Mean Corpuscular Volume 108.9 fL (81-100)
[2017-02-16 10:09] LABS: Magnesium 1.7 mg/dL (1.6-2.6)
--- NOTE | 2017-02-16 10:51 | PROG NOTE ---
[address] [address] PROGRESS NOTE PATIENT: DANISHA BAI : 1950 MR#: [id number] ADMIT: 02/14/2017 JOB ID: [id number] DATE: 02/16/2017 VENTILATOR MANAGEMENT FOLLOWUP NOTE: PROBLEM LIST: 1. Acute kidney injury resulting in end stage renal disease requiring dialysis. 2. Recurrent ventricular tachycardia. SUBJECTIVE: Breathing reasonably well. Had a severe coughing episode early this morning about a half hour after inhaled bronchodilators. Developed the sudden onset of right-sided chest pain. Also having pain in his left leg and left foot, to some extent right small toe which is chronic due to peripheral vascular disease. Not having much of a cough. No phlegm. OBJECTIVE: Temperature 36.7, pulse 53, respiratory rate 20, blood pressure 93/44, O2 sat on 2 L is 92%. General appearance: Breathing comfortably. Speaking easily. Chest: Markedly decreased breath sounds especially lower lung kee. Diffuse mid to end expiratory wheezes. No use of accessory muscles. Significant chest wall pain to palpation at about T6 in the anterior axillary line on the right. No crepitus. No overlying erythema or fluctuance. Heart: Distant tones. Monitor showed paced beats. Abdomen: Soft. Slightly distended. Eating well. No bowel movement for two days though his normal pattern is a bowel movement every three days. Extremities: Blue toes, quite cyanotic with scaling skin changes. Some toes surgically missing, some toes wrapped in bandages. LABORATORY VALUES: Show white count of 9600. Stable hemoglobin value of 11, platelet count 80,000 and stable. Lytes are pending. Sputum Gram stain, at time of intubation, shows no polys. No organisms seen. ASSESSMENT: 1. Pulmonary status is stable. Has tolerated extubation reasonably well. Has obvious significant underlying obstructive airways disease. Receiving bronchodilators including DuoNeb. Do not want a push the DuoNeb but too much. He does have some wheezing, but the ventricular tachycardia is somewhat disturbing. 2. Recurrent ventricular tachycardia. Defibrillator was reset yesterday. Not sure of the new settings. Thank you so much for allowing the Pulmonary service to participate in the care of this most delightful and engaging individual. We will stop following. If any questions or concerns arise, please feel free to re-contact us.
--- NOTE | 2017-02-16 12:58 | PCM.PNNEPH ---
Subjective Date of Service Feb 16, 2017 Subjective Patient remained stable. His major complaint is some right sided sharp intercostal chest pain from worsening. He has not had any further dysrhythmias. Exam Vital Signs Vital Sign - Last Date Time Temp Pulse Resp B/P Pulse Ox O2 Delivery O2 Flow Rate FiO2 02/16/17 11:50 37.1 51 14 115/55 99 Nasal Cannula 2.00 02/15/17 10:19 35 Intake and Output 02/15/17 02/15/17 02/16/17 Cumulative From/Thru 15:00 23:00 07:00 02/14/17 13:02 - 02/16/17 05:21 Intake Total 713 ml 430 ml 2003 ml Output Total 2030 ml 10 ml 2180 ml Balance -1317 ml 420 ml -177 ml Intake IV Total 713 ml 430 ml 2003 ml Output Urine Total 30 ml 10 ml 80 ml Gastric Drainage Total 100 ml Ultrafiltrate 2000 ml 2000 ml # Bowel Movements 0 0 Exam Neck is supple without adenopathy or thyromegaly. Lungs showed some hyperresonance to percussion but otherwise are clear. Heart was regular and rhythmical. Abdomen is soft without any tenderness rebound guarding masses or hepatosplenomegaly. Extremities Show Any Evidence of Clubbing, Cyanosis, or Edema. Lab and Diagnostics Result Diagram: 02/16/17 0920 02/16/17 0920 X-Rays, CTs and MRIs Right lung base shows patchy infiltrate. 12-lead ECG Paced rhythm of 50 Plan Impression Impression #1 end-stage renal disease dialysis dependent #2 hypertension with hypertensive heart disease and hypertensive nephrosclerosis Recommendations #1 I will make arrangements for his dialysis tomorrow. Nish Cornelius DO Feb 16, 2017 12:58
--- NOTE | 2017-02-16 13:29 | PROG NOTE ---
[address] [address] PROGRESS NOTE PATIENT: DANISHA BAI : 1950 MR#: [id number] ADMIT: 02/14/2017 JOB ID: [id number] DATE: 02/16/2017 SUBJECTIVE: The patient is a 66 years old male with history of severe dilated cardiomyopathy with ejection fraction of 20% to 25%, complete heart block, paroxysmal atrial fibrillation on anticoagulation, ventricular tachycardia, status post appropriate ICD discharges in the past, on chronic amiodarone therapy. He also has severe COPD, end-stage renal failure on hemodialysis, hypertension, dyslipidemia, and anemia from chronic kidney disease. He was hospitalized two days ago with sustained ventricular tachycardia that was felt below his detection rate on his ICD. He received brief CPR and external defibrillation. He was treated with intravenous amiodarone alongside with IV lidocaine. He was on mechanical ventilation initially and was extubated yesterday. The patient reports feeling better. However, he is not quite back to his normal self. He is to have shortness of breath. His chest is sore from compression. PHYSICAL EXAMINATION: Reveals a 66 years old male who appears older than his stated age. He appears chronically ill. Temperature is 37.1. Blood pressure is 115/51. Pulse is 51. Body weight is 80.1 kg. Head and face has normal configuration. Anicteric sclerae. Moist mucosa. Neck supple. Chest: Increased AP diameter. Diminished breath sounds with diffuse bilateral rhonchi and wheezing. Heart: Distant heart sounds. Abdomen: Soft. Bowel sounds diminished. Extremities: Clubbing and cyanotic. Neurology: Awake and responds appropriately to verbal commands. BLOOD TESTS: Show hemoglobin 11.0, WBC 9.6, platelets 88. Sodium 132, potassium 4.4, chloride 89, bicarb 23, BUN 37, creatinine 4.5. INR 1.83. IMPRESSION: 1. Recurrent ventricular tachycardia. 2. Severe dilated cardiomyopathy with ejection fraction 20% to 25%. 3. Moderate mitral regurgitation. 4. Biventricular implantable cardioverter-defibrillator in place. 5. Paroxysmal atrial fibrillation. 6. Severe chronic obstructive pulmonary disease. 7. End-stage renal disease, on hemodialysis. PLAN: I will discontinue intravenous amiodarone and switch him to oral amiodarone today. Lidocaine IV will be continued at the current dose. I will arrange for the patient to undergo coronary angiogram for ischemic evaluation. The risks and benefits of procedure have been explained to the patient. He understands and agrees to proceed with the procedure. FORTINO
[2017-02-16] MEDS: LIDOCAINE 2 GM/500 ML IV SCH (14:35)
[2017-02-16] MEDS: D5W IV SCH (14:35)
[2017-02-16] MEDS: 0.9% Sodium Chloride 1,000 ML IV SCH (18:09)
[2017-02-16] MEDS: Senna-Docusate 8.6-50 mg Tablet PO PRN (20:06)
[2017-02-16] MEDS: guaiFENesin 600 mg ER12 Tablet PO SCH (23:24)
[2017-02-17] VITALS (20 sets, daily range): BP systolic 105–131; BP diastolic 32–97; PULSE 51–72; RESP 12–19; O2SAT 92–98
[2017-02-17] MEDS ORDERED: Amiodarone 150 mg/100 mL D5W Premix IV ONE (00:03)
[2017-02-17] MEDS ORDERED: Amiodarone 150 mg/100 mL D5W 150 MG in IV Premix 1 EACH IV ONE (00:05)
[2017-02-17] MEDS: D5W IV SCH (00:12)
[2017-02-17] MEDS: LIDOCAINE 2 GM/500 ML IV SCH (00:12)
[2017-02-17] MEDS ORDERED: Magnesium Sulf 2 Gm/50mL Water 2 GM in IV Premix 1 EACH IV ONE (00:35)
[2017-02-17 01:14] LABS: Magnesium 1.6 mg/dL (1.6-2.6)
[2017-02-17] MEDS ORDERED: Calcium GLUCO 10% (mEq) Inj 13.95 MEQ in Dextrose 5% 100 ML IV ONE (01:50)
[2017-02-17 03:06] LABS: Mean Corpuscular Hemoglobin 35.3 pg (27.0-35.0); Mean Corpuscular Volume 108.5 fL (81-100)
[2017-02-17 03:21] LABS: INR 1.97 ratio
[2017-02-17] MEDS: Albuterol-Ipratropium 3 mL Inhalation Solution NEB SCH ×5 (03:56→20:21)
[2017-02-17] MEDS: Polyethylene Glycol (PEG) 17 Gm Powder PO SCH ×2 (08:05→20:14)
[2017-02-17] MEDS: Famotidine Inj 50 ML IV SCH (08:51)
[2017-02-17] MEDS: guaiFENesin 600 mg ER12 Tablet PO SCH ×2 (08:51→20:14)
--- NOTE | 2017-02-17 11:29 | PCM.PNNEPH ---
Subjective Date of Service Feb 17, 2017 Subjective The patient is continuing to have significant tachycardia arrhythmias and is continuing to receive multiple antiarrhythmics. He does have some increased shortness of breath this morning and continues to complain of some intercostal chest pain which is exacerbated by deep inspiration. This morning his hemoglobin was 10.8, sodium 126, potassium 5.8, chloride of 86, bicarbonate 19, BUN and creatinine were 48 and 5.4 respectively. Exam Vital Signs Vital Sign - Last Date Time Temp Pulse Resp B/P Pulse Ox O2 Delivery O2 Flow Rate FiO2 02/17/17 08:03 61 13 96 Nasal Cannula 2.00 02/17/17 08:00 36.7 118/68 02/15/17 10:19 35 Intake and Output 02/16/17 02/16/17 02/17/17 Cumulative From/Thru 15:00 23:00 07:00 02/14/17 13:02 - 02/17/17 06:00 Intake Total 1105 ml 391 ml 3499 ml Output Total 0 ml 15 ml 2195 ml Balance 1105 ml 376 ml 1304 ml Intake Oral 600 ml 600 ml IV Total 505 ml 391 ml 2899 ml Output Urine Total 0 ml 15 ml 95 ml Gastric Drainage Total 100 ml Ultrafiltrate 2000 ml # Bowel Movements 0 0 0 Exam Neck is supple without adenopathy however he does have some moderate jugular venous distention at close to 90. Lungs showed some hyperresonance to percussion and diminished breath sounds. There were some scattered end expiratory wheezes noted throughout both lung kee. Heart was regular and rhythmic. Abdomen is soft without any tenderness or rebound guarding masses or hepatosplenomegaly. Extremities not show any evidence of any clubbing, cyanosis , or edema. Skin turgor good. Lab and Diagnostics Result Diagram: 02/17/17 0250 02/17/17 0250 X-Rays, CTs and MRIs Right lung base shows patchy infiltrate. 12-lead ECG Paced rhythm of 50 Plan Impression Impression #1 end-stage renal disease dialysis dependent Recommendations #1 the patient was dialyzed today. On max dialyzer, 2 potassium bath, 50 blood flow was 600 dialysate flow, 1000 of heparin and 500 per hour and will try to take 2-3 L as tolerated. Nish Cornelius DO Feb 17, 2017 11:29
[2017-02-17] MEDS ORDERED: Heparin 1,000 Units/500 mL NS Premix IV ONE (12:25)
[2017-02-17] MEDS ORDERED: Heparin 10,000 Unit/1,000 mL NS Premix IV ONE (12:25)
--- NOTE | 2017-02-17 13:33 | PCM.PNMED ---
Subjective Date of Service Feb 17, 2017 Subjective Pt had multiple episodes/runs/bouts of VTg, minimally symptomatic for 3-4 of episodes. Mg was repleted pt denied any chest pain bus soreness on chest, breathing comfortable, denied cough pain is controlled with current regimen, awaits cardiac cath at 1pm, then HD all the questions answered Exam Vital Signs Vital Sign - Last Date Time Temp Pulse Resp B/P Pulse Ox O2 Delivery O2 Flow Rate FiO2 02/17/17 03:59 61 12 92 Nasal Cannula 2.00 02/17/17 03:04 36.8 106/32 02/15/17 10:19 35 Intake and Output 02/16/17 02/16/17 02/17/17 Cumulative From/Thru 15:00 23:00 07:00 02/14/17 13:02 - 02/17/17 06:00 Intake Total 1105 ml 391 ml 3499 ml Output Total 0 ml 15 ml 2195 ml Balance 1105 ml 376 ml 1304 ml Intake Oral 600 ml 600 ml IV Total 505 ml 391 ml 2899 ml Output Urine Total 0 ml 15 ml 95 ml Gastric Drainage Total 100 ml Ultrafiltrate 2000 ml # Bowel Movements 0 0 0 Exam Elderly gentleman, comfortably laying down on the bed, no labored breathing no JVD, MMM, no LAD RRR, nl s1, s2 no mrg prolonged exp wheezing, no labored breathing, S,ND,NT,hypoactive BS warm, bilateral multiple toes dressed, pulse 1/2 IVs and Medications Medications Reviewed: Medications were reviewed in detail Lab and Diagnostics Result Diagram: 02/17/17 0250 02/17/17 0250 X-Rays, CTs and MRIs Right lung base shows patchy infiltrate. 12-lead ECG Paced rhythm of 50 Assessment & Plan acute, active Recurrent ventricular tachycardia, POA, pt was admitted after possible PEA arrest, sustained VT which was felt below his detection rate on his ICD. pt was briefly resuscitated, defibrillated and intubated for airway protection and extubated successfully on 02/15.Patient was followed by Cardiology, started on amiodarone and Lidocaine gtt for recurrent VT, amiodarone switched to oral per 02/16. -pt still has recurrent episode of VT overnight, HD stable, -continue amiodarone po, lidocaine gtt per cardiology -plan for ischemic w/u with cardiac cath today -tramadol for chest soreness s/p CPR ileus, opioid induced, last BM3 days ago, benign abdomen, will start bowel regimen today End-stage renal disease, POA. hypertensive nephrosclerosis. -appreciate renal service follow up, dialysis likely after cath today chronic. stable, resolved Chronic systolic heart failure, severe DCMP, Avoid fluid overload, seems euvolemic, Hypomagnesemia, POA. Improved after repletion. Follow clinically. We will follow-up with a magnesium today. Chronic obstructive pulmonary disease, POA. Stable. There is no evidence of acute exacerbation. Resume usual medications. This remains clinically stable. Chronic leg wounds. POA and stable. Continue wound care. Patient's POLST reflects full resuscitation measures and intubation. dispo: likely 2-3more days, PT ordered today VTE Mechanical Devices: Intermittant Pneumatic CD Resuscitation Status: CPR: Attempt Resuscitation Time spent 35min Ariella Harrell MD Feb 17, 2017 07:17
[2017-02-17] MEDS: 0.9% Sodium Chloride 1,000 ML IV SCH (14:06)
--- NOTE | 2017-02-17 14:19 | CS94 ---
[address] [address] DIAGNOSTIC CARDIAC CATHETERIZATION PATIENT: DANISHA BAI : 1950 MR#: [id number] ADMIT: 02/14/2017 JOB ID: [id number] SERVICE DATE: 02/17/2017 PATIENT PROFILE: The patient is a 66 years old male with severe dilated cardiomyopathy with ejection fraction 20% to 25%, complete heart block, paroxysmal atrial fibrillation, on anticoagulation, ventricular tachycardia, status post appropriate ICD discharge in the past, on chronic amiodarone therapy. He also had severe COPD, end-stage renal failure on hemodialysis, hypertension, dyslipidemia, and anemia. The patient presented with sustained ventricular tachycardia. PROCEDURE: 1. Right heart catheterization. 2. Retrograde left heart catheterization. 3. Selective coronary angiography. VASCULAR CLOSURE DEVICE: Perclose. COMPLICATIONS: None. METHOD: Combined right and left heart catheterization was performed from the right groin under 1% lidocaine local anesthesia using a 6-Thai and an 8-Thai sheaths. A 7-Thai [place]-Rupal catheter was used for the right heart pressures. Cardiac output was determined by both thermodilution technique and Rachel method. Selective coronary angiogram was performed in multiple projections, including cranial and caudal angulations with hand-injected contrast via JL4 and 3DRC catheters. A 6-Thai angulated pigtail catheter was advanced to the left ventricle and left ventricular pressure was obtained. Right femoral angiogram was performed before sheath removal. Hemostasis was achieved by using a Perclose device. The patient tolerated the procedure well. He was transferred to the [facility] in stable condition. TOTAL CONTRAST USED: 50 cc. FLUOROSCOPY TIME: 4.7 minutes. RESULTS: 1. Mean right atrial pressure is 18 mmHg. Right ventricular pressure is 50/9 mmHg. Pulmonary artery pressure is 53/23 mmHg. 2. Mean pulmonary capillary wedge pressure is 18 mmHg with a V-wave of 24 mmHg. 3. Aortic pressure is 111/53 mmHg. Left ventricular pressure is 113/21 mmHg. 4. Left ventricular end-diastolic pressure is 31 mmHg. 5. Arterial oxygen saturation is 91% on oxygen nasal cannula 3 L/minute. Mixed venous saturation is 38%. 6. Cardiac output by the Rachel method is 3.5 L/minute with an index of 1.71 L/min/meter squared. 7. Cardiac output by the thermodilution technique is 3.44 L/minute with an index of 1.68 L/min/meter squared. 8. Selective coronary angiogram: a. The coronary arteries are moderately calcified. b. The left main coronary artery has a distal 50% stenosis. c. The left anterior descending artery is chronically occluded in the proximal half. The distal half was filled via collaterals into the diagonal branch and distal left anterior descending artery. d. The circumflex artery and its obtuse marginal branches have mild to moderate disease. e. The dominant right coronary artery is occluded in the mid portion with bridging collaterals filling the mid portion. CONCLUSION: 1. Chronically occluded left anterior descending and right coronary arteries. 2. Mild to moderate disease of the circumflex artery. 3. Cardiac index is 1.7 L/minute/meter squared. 4. Mean pulmonary capillary wedge pressure is 18 mmHg. 5. Left ventricular end-diastolic pressure is 31 mmHg. 6. Moderate pulmonary hypertension. MTDD
[2017-02-17] MEDS ORDERED: 0.9% Sodium Chloride 1,000 ML IV SCH (14:57)
[2017-02-17] MEDS ORDERED: 0.9% Sodium Chloride 1,000 ML IV PRN (16:27)
[2017-02-17] MEDS ORDERED: 0.9% Sodium Chloride 250 ML IV PRN (16:27)
[2017-02-17] MEDS ORDERED: Atropine 1 mg/10 mL (Code) Syringe IVPUSH PRN (16:30)
[2017-02-17] MEDS: Senna-Docusate 8.6-50 mg Tablet PO PRN (20:14)
[2017-02-18] VITALS (12 sets, daily range): BP systolic 105–128; BP diastolic 56–63; PULSE 58–71; RESP 12–19; O2SAT 92–97
[2017-02-18] MEDS: Albuterol-Ipratropium 3 mL Inhalation Solution NEB SCH ×7 (00:13→23:10)
[2017-02-18 04:04] LABS: BASOPHILS % (AUTO) 0.7 % (0-3); MONOCYTES % (AUTO) 8.8 % (4-12); Mean Corpuscular Hemoglobin 34.8 pg (27.0-35.0); Mean Corpuscular Volume 108.4 fL (81-100); NEUTROPHILS % (AUTO) 83.9 % (40-74); Platelet Count 88 bil/L (150-400)
[2017-02-18 04:41] LABS: Magnesium 1.9 mg/dL (1.6-2.6)
[2017-02-18] MEDS: Famotidine Inj 50 ML IV SCH (07:55)
[2017-02-18] MEDS: guaiFENesin 600 mg ER12 Tablet PO SCH ×2 (07:55→22:37)
[2017-02-18] MEDS: Polyethylene Glycol (PEG) 17 Gm Powder PO SCH ×2 (08:30→20:30)
[2017-02-18] MEDS: D5W IV SCH (09:39)
[2017-02-18] MEDS: LIDOCAINE 2 GM/500 ML IV SCH (09:39)
[2017-02-18] MEDS: Heparin 5,000 Unit/mL Inj SUBQ SCH ×2 (12:04→20:30)
--- NOTE | 2017-02-18 13:04 | PCM.PNMED ---
Subjective Date of Service Feb 18, 2017 Subjective tolerated cardiac cath, followed by HD since evening, pt had multiple prolonged runs of VT. After the patient finished Dialysis his ectopy evened out and only occasionally had runs of VT. pt had 5-6beats of VT this AM, HD stable made BM once pt c/o jerking movement on legs, stated that it's from RLS, denied SOB, on duonebs, lidocaine running Exam Vital Signs Vital Sign - Last Date Time Temp Pulse Resp B/P Pulse Ox O2 Delivery O2 Flow Rate FiO2 02/18/17 12:41 59 16 94 Nasal Cannula 1.50 02/18/17 12:09 36.6 110/63 02/15/17 10:19 35 Intake and Output 02/17/17 02/17/17 02/18/17 Cumulative From/Thru 15:00 23:00 07:00 02/14/17 13:02 - 02/18/17 05:05 Intake Total 1346 ml 1215 ml 6060 ml Output Total 3000 ml 50 ml 10 ml 5255 ml Balance -3000 ml 1296 ml 1205 ml 805 ml Intake Oral 600 ml 950 ml 2150 ml IV Total 746 ml 265 ml 3910 ml Output Urine Total 50 ml 10 ml 155 ml Gastric Drainage Total 100 ml Ultrafiltrate 3000 ml 5000 ml # Bowel Movements 1 1 Exam Elderly gentleman, comfortably laying down on the bed, no labored breathing no JVD, MMM, no LAD RRR, nl s1, s2 no mrg prolonged exp wheezing, no labored breathing, S,ND,NT,hypoactive BS warm, bilateral multiple toes dressed, pulse 1/2 Rt groin no hematoma, bruit IVs and Medications Medications Reviewed: Medications were reviewed in detail Lab and Diagnostics Result Diagram: 02/18/17 0345 02/18/17 0345 X-Rays, CTs and MRIs Right lung base shows patchy infiltrate. 12-lead ECG Paced rhythm of 50 Assessment & Plan acute, active Recurrent ventricular tachycardia, POA, pt was admitted after possible PEA arrest, sustained VT which was felt below his detection rate on his ICD. pt was briefly resuscitated, defibrillated and intubated for airway protection and extubated successfully on 02/15.Patient was followed by Cardiology, started on amiodarone and Lidocaine gtt for recurrent VT, amiodarone switched to oral per 02/16. 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 hypertensive nephrosclerosis. -appreciate renal service follow up, dialysis as scheduled RLS, developed 02/17, resumed ropinirole insomnia, start ambien 5mg prn qhs chronic. stable, resolved depression, resumed fluoxetine today ileus, opioid induced, started bowel regimen, resolved, continue for now Chronic systolic heart failure, severe DCMP, Avoid fluid overload, seems euvolemic, Hypomagnesemia, POA. Improved after repletion. Follow clinically. We will follow-up with a magnesium today. Chronic obstructive pulmonary disease, POA. Stable. There is no evidence of acute exacerbation. Resume usual medications. This remains clinically stable. Chronic leg wounds. POA and stable. Continue wound care. Patient's POLST reflects full resuscitation measures and intubation. dvt ppx: Coumadin held INR1.9x, resume today, HSQ until INR>2, d/c SCD dispo: likely 2-3more days, appreciate PT eval VTE Mechanical Devices: Intermittant Pneumatic CD Resuscitation Status: CPR: Attempt Resuscitation Time spent 35min Ariella Harrell MD Feb 18, 2017 13:04
--- NOTE | 2017-02-18 14:40 | PCM.PNNEPH ---
Subjective Date of Service Feb 18, 2017 Subjective Patient is actively hallucinating. He states he has had very little sleep and no doubt has a component of sleep deprivation/ICU psychosis. Otherwise she is loosened and oriented. He continues to complain of extensive intercostal pain from CPR. His hemoglobin today is 10.3, sodium 135, potassium 4.2, chloride 92 , BUN and creatinine were 43 and 3.95. Exam Vital Signs Vital Sign - Last Date Time Temp Pulse Resp B/P Pulse Ox O2 Delivery O2 Flow Rate FiO2 02/18/17 12:41 59 16 94 Nasal Cannula 1.50 02/18/17 12:09 36.6 110/63 02/15/17 10:19 35 Intake and Output 02/17/17 02/17/17 02/18/17 Cumulative From/Thru 15:00 23:00 07:00 02/14/17 13:02 - 02/18/17 05:05 Intake Total 1346 ml 1215 ml 6060 ml Output Total 3000 ml 50 ml 10 ml 5255 ml Balance -3000 ml 1296 ml 1205 ml 805 ml Intake Oral 600 ml 950 ml 2150 ml IV Total 746 ml 265 ml 3910 ml Output Urine Total 50 ml 10 ml 155 ml Gastric Drainage Total 100 ml Ultrafiltrate 3000 ml 5000 ml # Bowel Movements 1 1 Exam HEENT examination is remarkable for pale sclera. Neck supple without adenopathy , thyromegaly, or jugular venous distention. Lungs are clear to auscultation. Heart was regular. Abdomen soft with some diminished bowel sounds. Extremities show any evidence of any clubbing, cyanosis, or edema. Skin turgor is good. Lab and Diagnostics Result Diagram: 02/18/17 0345 02/18/17 034 X-Rays, CTs and MRIs Right lung base shows patchy infiltrate. 12-lead ECG Paced rhythm of 50 Plan Impression Impression #1 end-stage renal disease dialysis dependent #2 hypertension with hypertensive heart disease and hypertensive nephrosclerosis #3 sleep deprivation /ICU psychosis Recommendation #1 I would urge some type of sedation at bedtime so the patient can get some restorative sleep. Medical reaches for his dialysis in the morning. Nish Cornelius DO Feb 18, 2017 14:40
--- NOTE | 2017-02-18 15:28 | PROG NOTE ---
[address] [address] PROGRESS NOTE PATIENT: DANISHA BAI : 1950 MR#: [id number] ADMIT: 02/14/2017 JOB ID: [id number] DATE: 02/18/2017 SUBJECTIVE: The patient underwent cardiac catheterization yesterday. It demonstrated chronic occlusion of the left anterior descending and right coronary artery with [id number] disease of the circumflex artery. His cardiac index was 1.7 L/minute/m2. I informed the patient about the angiographic results. He remains short of breath and tired and feeling weak today. PHYSICAL EXAMINATION: Temperature is 36.6, blood pressure is 110/63. Pulse 59. Body weight is 84.6 kg. Head and face have normal configuration. Anicteric sclerae. Moist mucosa. Neck: JVP is elevated. Chest: Increased AP diameter. Diminished breath sound with a few rhonchi and wheezing. Heart: Distant heart sounds. Abdomen: Soft. Bowel sounds diminished. Extremities: Clubbing and cyanosis. Several toes in dressing. Neurology: Awake and responds appropriately. BLOOD TESTS: Show hemoglobin 10.3, WBC 9.6, platelet 88. Sodium 135, potassium 4.2, chloride 92, bicarbonate 26, BUN 33, creatinine 3.95. IMPRESSION: 1. Severe ischemic dilated cardiomyopathy with ejection fraction 20%-25%. 2. Recurrent ventricular tachycardia. 3. Moderate mitral regurgitation. 4. Biventricular implantable cardioverter-defibrillator in place. 5. Paroxysmal atrial fibrillation. 6. Severe chronic obstructive pulmonary disease. 7. End-stage renal disease on hemodialysis. PLAN: I will discontinue lidocaine and start him on mexiletine 150 mg p.o. q.8 hours. The dose of amiodarone will be decreased from 400 mg b.i.d. to 400 mg once daily. He remains volume overloaded. That needs to be removed by dialysis. I explained his heart condition to the patient. He understands that his heart will not recover. He agreed to comfort measures. I would like to obtain palliative care consultation. Tele monitor will be discontinued. The POLST form was changed to comfort measures. MTDD
[2017-02-18] MEDS: 0.9% Sodium Chloride 1,000 ML IV SCH (15:41)
[2017-02-19] VITALS (8 sets, daily range): BP systolic 107–130; BP diastolic 63–67; PULSE 58–67; RESP 16–22; O2SAT 87–94
[2017-02-19] MEDS: Albuterol-Ipratropium 3 mL Inhalation Solution NEB SCH ×5 (03:10→20:35)
[2017-02-19 06:32] LABS: BASOPHILS % (AUTO) 0.5 % (0-3); EOSINOPHILS % (AUTO) 1.7 % (0-5); MONOCYTES % (AUTO) 7.6 % (4-12); Mean Corpuscular Hemoglobin 35.2 pg (27.0-35.0); Mean Corpuscular Volume 107.6 fL (81-100); NEUTROPHILS % (AUTO) 84.9 % (40-74); Platelet Count 105 bil/L (150-400)
[2017-02-19 06:59] LABS: INR 2.61 ratio; Magnesium 1.9 mg/dL (1.6-2.6); Phosphorus 4.2 mg/dL (2.5-4.9)
[2017-02-19] MEDS: Polyethylene Glycol (PEG) 17 Gm Powder PO SCH ×2 (08:30→20:30)
[2017-02-19] MEDS: Famotidine Inj 50 ML IV SCH (09:16)
[2017-02-19] MEDS: guaiFENesin 600 mg ER12 Tablet PO SCH ×2 (09:17→21:27)
[2017-02-19] MEDS: Heparin 5,000 Unit/mL Inj SUBQ SCH (09:19)
--- NOTE | 2017-02-19 12:54 | PCM.PNNEPH ---
Subjective Date of Service Feb 19, 2017 Subjective Patient's cardiac rhythm appears to be stable. My major concern is that he may be developing some type of pneumonic process. He has had considerable trauma to his chest from CPR and this has limited his ability to cough and fully expectorate any sputum. He remains afebrile but does have some difficulties in clearing his secretions. He complains of ongoing sharp intercostal pain especially with deep respiration and with coughing. Exam Vital Signs Vital Sign - Last Date Time Temp Pulse Resp B/P Pulse Ox O2 Delivery O2 Flow Rate FiO2 02/19/17 11:23 63 127/67 02/19/17 09:24 Supplement Oxygen 02/19/17 08:01 18 87 02/19/17 04:39 36.6 02/18/17 19:43 1.50 02/15/17 10:19 35 Intake and Output 02/18/17 02/18/17 02/19/17 Cumulative From/Thru 15:00 23:00 07:00 02/14/17 13:02 - 02/19/17 06:11 Intake Total 1022 ml 0 ml 7082 ml Output Total 0 ml 5255 ml Balance 1022 ml 0 ml 1827 ml Intake Oral 800 ml 0 ml 2950 ml IV Total 222 ml 4132 ml Output Urine Total 0 ml 155 ml Gastric Drainage Total 100 ml Ultrafiltrate 5000 ml # Bowel Movements 1 Exam HEENT examination is remarkable for pale sclera. Neck is supple without adenopathy or thyromegaly. His lungs showed diffuse loud rales, rhonchi, and end expiratory wheezes throughout both lung kee. Heart was regular and rhythmical with soft systolic murmur. Abdomen soft without any tenderness rebound guarding masses or hepatosplenomegaly. Extremities do not show any evidence of any clubbing, cyanosis, or edema. Lab and Diagnostics Result Diagram: 02/19/1761202/19/17612 X-Rays, CTs and MRIs Right lung base shows patchy infiltrate. 12-lead ECG Paced rhythm of 50 Plan Impression Impression #1 end-stage renal disease dialysis dependent #2 COPD with high risk for pneumonia Recommendation #1 I would like to dialyze him today for 4 hours on a 2 potassium bath for 2 hours and then a 3 potassium bath for 2 hours. We will give him 1000 heparin 500 now and would like to take one to possibly 2 L of fluid as tolerated. Nish Cornelius DO Feb 19, 2017 12:54
--- NOTE | 2017-02-19 15:00 | PCM.PHAPRO ---
Progress Date of Service: Feb 19, 2017 [place] WARFARIN MANAGEMENT A\ 66YO m with history of PE, AFIB and heart failure and mitral reguritation. Home dose of Warfarin 3.75mg Jennifer Ovalles,; 2.5mg every other day Goal INR=2-3 Current INR 2.61 HCT=33.9 Htd=173 INR has increased from 1.97 to 2.61 between 02/17- 02/19 with only Warfarin 3.75mg given on 02/18. Pt on chronic amiodarone at home and received amiodarone bolus/drip while inpatient which can increase bleed risk. Fluoxetine, Tramadol can also increase bleed risk; Ropinirole can increase INR. P\ Due to the healthy increase in INR will decrease Warfarin 2mg po x1 tonight and check daily INRs Josh Wilcox [facility] Feb 19, 2017 15:00
[2017-02-19] MEDS: 0.9% Sodium Chloride 1,000 ML IV SCH (15:41)
--- NOTE | 2017-02-19 16:59 | PCM.PNMED ---
Subjective Date of Service Feb 19, 2017 Subjective Patient is sleeping, and when he was woken up, he was conversing with somewhat incoherent speech. He has dry mucosa, swollen R arm, coughing a bit, mild wheezing on lung exam. This is the first time I met this very complex patient. This patient also has several amputated toes, PAD lesions over feet, pulses are palpable, abd non tender, says that he has globus sensation, using the suction to get -phlegm out. He has eaten well last night (on dysphagia diet) He says this is new since his resuscitation, coughing is getting worse. No other concerns Exam Vital Signs Vital Sign - Last Date Time Temp Pulse Resp B/P Pulse Ox O2 Delivery O2 Flow Rate FiO2 02/19/17 15:43 65 18 93 Nasal Cannula 1.50 02/19/17 15:17 130/67 02/19/17 04:39 36.6 02/15/17 10:19 35 Intake and Output 02/18/17 02/18/17 02/19/17 Cumulative From/Thru 15:00 23:00 07:00 02/14/17 13:02 - 02/19/17 06:11 Intake Total 1022 ml 0 ml 7082 ml Output Total 0 ml 5255 ml Balance 1022 ml 0 ml 1827 ml Intake Oral 800 ml 0 ml 2950 ml IV Total 222 ml 4132 ml Output Urine Total 0 ml 155 ml Gastric Drainage Total 100 ml Ultrafiltrate 5000 ml # Bowel Movements 1 Exam Elderly gentleman, comfortably laying down on the bed, no labored breathing no JVD, MMM, no LAD RRR, nl s1, s2 no mrg prolonged exp wheezing, no labored breathing, S,ND,NT warm, bilateral multiple toes dressed, pulse 1/2 PAlpable pedal pulses IVs and Medications Medications Reviewed: Medications were reviewed in detail Lab and Diagnostics Result Diagram: 02/19/1761202/19/17612 X-Rays, CTs and MRIs CXR 02/19 Left lung base shows patchy infiltrate. 12-lead ECG Paced rhythm of 50 Assessment & Plan acute, active Cough, concern for pneumonia, active -- Tessalon Perles, Robitussin and ordered -- Advair to better control COPD -- Swallow study is ordered -- Chest x-rays ordered as last one was on the 10th: I reviewed the x-ray by myself and it showed left basilar infiltrate, official read shows a retrocardiac opacity -- Procalcitonin and was elevated 0.91 -- Urine strep, legionella, sputum cx Recurrent ventricular tachycardia, POA, pt was admitted after possible PEA arrest, sustained VT which was felt below his detection rate on his ICD. pt was briefly resuscitated, defibrillated and intubated for airway protection and extubated successfully on 02/15.Patient was followed by Cardiology, started on amiodarone and Lidocaine gtt for recurrent VT, amiodarone switched to oral per 02/16. Cardiac cath 02/17 showed non-obstructive CAD -pt still has recurrent episode of VT occasionally, HD stable, -continue amiodarone po, lmexiline po per cardiology, needs group home plan prior to d/c -tramadol for chest soreness s/p CPR -- The palliative care is consulted, they want social work to have a meeting with the family members prior to palliative care getting involved. Patient apparently lived alone but his son was here over the week last week to be with the patient -- Physical therapy was consulted but they have not seen the patient yet. Patient states he did not get out of his bed throughout his critical care stay End-stage renal disease, POA. hypertensive nephrosclerosis. -appreciate renal service follow up, dialysis as scheduled -Patient had a dialysis on 02/19 RLS, developed 02/17, resumed ropinirole insomnia, start ambien 5mg prn qhs chronic. stable, resolved depression, resumed fluoxetine today ileus, opioid induced, started bowel regimen, resolved, continue for now Chronic systolic heart failure, severe DCMP, Avoid fluid overload, seems euvolemic, Hypomagnesemia, POA. Improved after repletion. Follow clinically. . Chronic obstructive pulmonary disease, POA. Stable. There is no evidence of acute exacerbation. Resume usual medications. Advair is added. Chronic leg wounds. POA and stable. Continue wound care. Code Status: DNR/DNI dvt ppx: Coumadin dispo: likely 2-3more days, appreciate PT eval VTE Mechanical Devices: Intermittant Pneumatic CD Resuscitation Status: CPR: Attempt Resuscitation Time spent 20 minutes Bianca Perez DO Feb 19, 2017 16:47
--- NOTE | 2017-02-19 18:11 | DRSVH ---
PROCEDURE: X-RAY CHEST ONE VIEW, PORTABLE ([id number]) INDICATIONS: cough, dyspnea TECHNIQUE: One view of the chest was acquired. COMPARISON: [facility], CR, XR CHEST 1VW (PORTABLE), 02/15/2017, 6:04. FINDINGS: Surgical changes and devices: Pacemaker. Lungs and pleura: Mild appearance of retrocardiac/left basilar opacity. Minimal blunting of the costo phrenic angles bilaterally. Mediastinum: Mediastinal contours appear normal. Heart size is normal. Bones and chest wall: No suspicious bony lesions. Overlying soft tissues appear unremarkable. IMPRESSION: Persistent left basilar/retrocardiac opacity with trace effusions. Dictated by: Jovana Andrade M.D. on 02/19/2017 at 18:08 Approved by: Jovana Andrade M.D. on 02/19/2017 at 18:09
[2017-02-19] MEDS: Fluticasone-Salmeterol 100-50 Inhaler INHALATION SCH (21:26)
[2017-02-20] VITALS (10 sets, daily range): BP systolic 112–121; BP diastolic 52–67; PULSE 55–66; RESP 16–26; O2SAT 87–95
[2017-02-20] MEDS: Albuterol-Ipratropium 3 mL Inhalation Solution NEB SCH ×7 (00:09→23:10)
[2017-02-20 06:05] LABS: INR 3.6 ratio
[2017-02-20] MEDS: Polyethylene Glycol (PEG) 17 Gm Powder PO SCH ×2 (08:30→20:30)
[2017-02-20] MEDS: Famotidine Inj 50 ML IV SCH (08:56)
[2017-02-20] MEDS: guaiFENesin 600 mg ER12 Tablet PO SCH ×2 (08:57→20:46)
[2017-02-20] MEDS: Fluticasone-Salmeterol 100-50 Inhaler INHALATION SCH ×2 (08:57→20:47)
--- NOTE | 2017-02-20 10:01 | PCM.PHAPRO ---
Progress [place] WARFARIN DAILY DOSING INDICATION: PRIOR PE GOAL: 2-3 TODAY'S INR 3.60 Hold warfarin x 1 dose today Date Feb 15Feb 16-Feb 17Feb 18-Feb 19-Feb 20-Feb INR 1.67 1.83 1.97 2.61 3.60 INR change #VALUE! 0.16 1.97 2.61 0.99 Warf Dose held held 3.75mg 2 HOLD Cynthia Marrufo Pharm.D Feb 20, 2017 10:01
[2017-02-20 11:07] LABS: Mean Corpuscular Hemoglobin 37.3 pg (27.0-35.0); Mean Corpuscular Volume 120.5 fL (81-100)
[2017-02-20] MEDS: 0.9% Sodium Chloride 1,000 ML IV SCH (15:14)
[2017-02-20] MEDS: Codeine-guaiFENesin 10 mL Syrup PO PRN (20:46)
--- NOTE | 2017-02-20 21:04 | PCM.PNMED ---
Subjective Date of Service Feb 20, 2017 Subjective Patient is seen and examined. He says that his son will be available by phone but will not be able to participate in the hospice meetings today. patient also makes it clear that he will not forego dialysis. He understands that he may need to be placed either in assisted living or an care home if recommended by PT OT. cough is somewhat improved today. He has no other concerns. Exam Vital Signs Vital Sign - Last Date Time Temp Pulse Resp B/P Pulse Ox O2 Delivery O2 Flow Rate FiO2 02/20/17 08:45 55 18 94 Nasal Cannula 1.00 02/20/17 08:42 36.4 117/65 02/15/17 10:19 35 Intake and Output 02/19/17 02/19/17 02/20/17 Cumulative From/Thru 15:00 23:00 07:00 02/14/17 13:02 - 02/20/17 06:11 Intake Total 300 ml 200 ml 7582 ml Output Total 1000 ml 100 ml 0 ml 6355 ml Balance -1000 ml 200 ml 200 ml 1227 ml Intake Oral 300 ml 200 ml 3450 ml IV Total 4132 ml Output Urine Total 100 ml 0 ml 255 ml Gastric Drainage Total 100 ml Ultrafiltrate 1000 ml 6000 ml # Bowel Movements 1 2 Exam Elderly gentleman, comfortably laying down on the bed, no labored breathing, coherent, pleasant Neck: no JVD, trachea is central Heart: RRR, nl s1, s2 no murmurs Lungs: prolonged exp wheezing, no labored breathing, Abd: NT/ND, normal bowel sounds Ext: warm, bilateral multiple toes dressed, pulse 1/2, PAlpable pedal pulses Psych: Neg for anxiety Neuro: No focal deficits IVs and Medications Medications Reviewed: Medications were reviewed in detail Lab and Diagnostics Result Diagram: 02/19/1761202/19/17612 X-Rays, CTs and MRIs CXR 02/19 Left lung base shows patchy infiltrate. 12-lead ECG Paced rhythm of 50 Assessment & Plan acute, active Cough, concern for pneumonia, improving -- Radha Yusin and ordered -- Advair to better control COPD -- Swallow study is ordered -- Chest x-rays ordered as last one was on the : I reviewed the x-ray by myself and it showed left basilar infiltrate, official read shows a retrocardiac opacity -- Procalcitonin and was elevated 0.91 -- Urine strep, legionella, sputum cx: Ultrasound negative respiratory panel is negative -- Speech eval indeterminant Recurrent ventricular tachycardia, POA, pt was admitted after possible PEA arrest, sustained VT which was felt below his detection rate on his ICD. pt was briefly resuscitated, defibrillated and intubated for airway protection and extubated successfully on 02/15.Patient was followed by Cardiology, started on amiodarone and Lidocaine gtt for recurrent VT, amiodarone switched to oral per 02/16. 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 Patient apparently lived alone but his son was here over the week last week to be with the patient -- Physical therapy was consulted but they have not seen the patient yet. Patient states he did not get out of his bed throughout his critical care stay -- Contact nephrology to see if they can continue to do dialysis given patient' s cardiac prognosis End-stage renal disease, POA. hypertensive nephrosclerosis. -appreciate renal service follow up, dialysis as scheduled -Patient had a dialysis on 02/19 RLS, developed 02/17, resumed ropinirole insomnia, start ambien 5mg prn qhs chronic. stable, resolved depression, resumed fluoxetine today ileus, opioid induced, started bowel regimen, resolved, continue for now Chronic systolic heart failure, severe DCMP, Avoid fluid overload, seems euvolemic, Hypomagnesemia, POA. Improved after repletion. Follow clinically. . Chronic obstructive pulmonary disease, POA. Stable. There is no evidence of acute exacerbation. Resume usual medications. Advair is added. Chronic leg wounds. POA and stable. Continue wound care. Code Status: DNR/DNI dvt ppx: Coumadin dispo: Discharged to home versus assisted living versus a residential home pending. Need to get an answer from [facility] on ability to continue dialysis VTE Mechanical Devices: Intermittant Pneumatic CD Resuscitation Status: DNR/DNI:Do Not Resuscitate/Intubate Time spent 25 minutes Bianca Perez DO Feb 20, 2017 10:06
[2017-02-21] MEDS: Codeine-guaiFENesin 10 mL Syrup PO PRN ×2 (02:06→08:26)
[2017-02-21] MEDS: Albuterol-Ipratropium 3 mL Inhalation Solution NEB SCH ×2 (03:10→08:20)
[2017-02-21 06:09] VITALS: BP 106/67; PULSE 68; RESP 20; O2SAT 87
[2017-02-21 07:09] LABS: INR 4.58 ratio
[2017-02-21] MEDS: Polyethylene Glycol (PEG) 17 Gm Powder PO SCH (07:53)
[2017-02-21 08:20] VITALS: PULSE 60; RESP 20; O2SAT 89
[2017-02-21] MEDS: Fluticasone-Salmeterol 100-50 Inhaler INHALATION SCH (08:26)
[2017-02-21] MEDS: guaiFENesin 600 mg ER12 Tablet PO SCH (08:26)
--- NOTE | 2017-02-21 12:09 | PCM.PNNEPH ---
Subjective Date of Service Feb 21, 2017 Subjective The patient still complains of some intermittent confusion due to sleep deprivation. Her major issue seems to be his ongoing problems with pulmonary toilet due to his rib fractures. He states that he has been given some pain medication and some cough syrup which has helped. Exam Vital Signs Vital Sign - Last Date Time Temp Pulse Resp B/P Pulse Ox O2 Delivery O2 Flow Rate FiO2 02/21/17 08:29 Supplement Oxygen 02/21/17 08:20 60 20 89 1.00 02/21/17 06:09 36.7 106/67 02/15/17 10:19 35 Intake and Output 02/20/17 02/20/17 02/21/17 Cumulative From/Thru 15:00 23:00 07:00 02/14/17 13:02 - 02/21/17 06:09 Intake Total 1350 ml 8932 ml Output Total 0 ml 6355 ml Balance 1350 ml 2577 ml Intake Oral 1350 ml 4800 ml IV Total 4132 ml Output Urine Total 0 ml 255 ml Gastric Drainage Total 100 ml Ultrafiltrate 6000 ml # Bowel Movements 0 2 Exam Supple without adenopathy, thyromegaly, or jugular venous distention. Lungs showed scattered rhonchi and increased AP diameter. It was regular and rhythmic. Abdomen is soft without any tenderness rebound guarding masses or hepatosplenomegaly. Extremities did not show any evidence of any clubbing cyanosis or edema. Skin turgor skull. Lab and Diagnostics Result Diagram: 02/20/17 1048 02/21/17 0630 X-Rays, CTs and MRIs CXR 02/19 Left lung base shows patchy infiltrate. 12-lead ECG Paced rhythm of 50 Plan Impression Impression #1 end-stage renal disease dialysis dependent #2 COPD #3 impaired pulmonary toilet secondary to multiple rib fractures secondary to CPR Recommendations #1 make arrangements for his dialysis in the morning. Nish Cornelius DO Feb 21, 2017 12:09
--- NOTE | 2017-02-22 00:01 | PCM.DC.MED ---
Discharge Summary Date of Service Feb 21, 2017 Dates of Hospitalization Date of Hospital Admission Feb 14, 2017 at 15:04 Date of Discharge: Feb 21, 2017 Providers: Admitting Physician: Shin Landeros MD [facility] Attending Physician: Bianca Perez DO Diagnosis at Time of Discharge Diagnosis at Time of Discharge Recurrent ventricular tachycardia/sustained V. tach status post PEA arrest, ESRD , restless leg syndrome, insomnia, depression, chronic systolic heart failure, severe the CMP, COPD, PAD, chronic leg wounds Procedures XRay, CTs & MRIs CXR 02/19 Left lung base shows patchy infiltrate. ECG 12 Lead Paced rhythm of 50 Brief History 66-year-old man with history of severe COPD, dilated cardiomyopathy with ICD, VF arrest, on chronic amiodarone therapy, ESRD on HD, and paroxysmal AF on chronic anticoagulation here with recurrent lightheadedness. Patient was admitted earlier this month for similar symptoms and was found to have recurrent nonsustained VT. His amiodarone was increased and he was discharged home. Patient took his medications as prescribed but his lightheadedness continued to persist. Therefore, he came back to our emergency room for further care. Prior to my arrival to the emergency room, I had spoken with the ER physician over the phone and recommended starting IV lidocaine bolus and drip since he was not responding appropriately to IV amiodarone bolus. As I arrived to the emergency room, he continued to have recurrent very frequent nonsustained VT. I spoke with him briefly and asked him whether he would be willing to be intubated and sedated with the understanding that he may not be able to be extubated easily due to his severe COPD and possible competitions from intubation. Patient states that he wants to be intubated but does not want to be intubated forever. During this conversation, patient had an episode of sustained VT and syncope. His AICD device did not fire. Subsequently, he lost his pulse as the pads were being placed. CPR was started and patient received 1 shock that converted him from VT to sinus rhythm. We elected to intubate him afterwards. Patient is in the emergency room by himself and attempts are being made to speak with his son. Hospital Course acute, active Cough, concern for pneumonia, improving -- Radha Yusin and ordered -- Advair to better control COPD -- Swallow study is ordered -- Chest x-rays ordered as last one was on the : I reviewed the x-ray by myself and it showed left basilar infiltrate, official read shows a retrocardiac opacity -- Procalcitonin and was elevated 0.91 -- Urine strep, legionella, sputum cx: Ultrasound negative respiratory panel is negative -- Speech eval indeterminant Recurrent ventricular tachycardia, POA, pt was admitted after possible PEA arrest, sustained VT which was felt below his detection rate on his ICD. pt was briefly resuscitated, defibrillated and intubated for airway protection and extubated successfully on 02/15.Patient was followed by Cardiology, started on amiodarone and Lidocaine gtt for recurrent VT, amiodarone switched to oral per 02/16. Cardiac cath 02/17 showed non-obstructive CAD -pt still has recurrent episode of VT occasionally, HD stable, -continue amiodarone po, lmexiline po per cardiology, needs longterm plan prior to d/c -tramadol for chest soreness s/p CPR -- 02/19 The palliative care is consulted, they want social work to have a meeting with the family members prior to palliative care getting involved. Patient apparently lived alone but his son was here over the week last week to be with the patient -- 02/20 Physical therapy was consulted but they have not seen the patient yet. Patient states he did not get out of his bed throughout his critical care stay. Patient stated that his son would be available for any meetings over the phone but will not be able to come in person, as he lives in [place] and has a job. Patient is also pretty firm and not wanting to forego ESRD, we were going to discuss this with nephrology. Patient did not want to go on hospice, but was well aware of his poor prognosis. He was considering going home with home care versus assisted living. -- On 02/21 a.m. patient suddenly became unresponsive, was found to be hypoxic, and apneic. His son was contacted and given update on his current condition, within a few minutes patient . Patient was declared at 12:15 PM End-stage renal disease, POA. hypertensive nephrosclerosis. -appreciate renal service follow up, dialysis as scheduled -Patient had last round of dialysis on 02/19 RLS, developed 02/17, resumed ropinirole insomnia, start ambien 5mg prn qhs chronic. stable, resolved depression, resumed fluoxetine today ileus, opioid induced, started bowel regimen, resolved, continue for now Chronic systolic heart failure, severe DCMP, Avoid fluid overload, seems euvolemic, Hypomagnesemia, POA. Improved after repletion. Follow clinically. . Chronic obstructive pulmonary disease, POA. Stable. There is no evidence of acute exacerbation. Resume usual medications. Advair is added. Chronic leg wounds. POA and stable. Continue wound care. Code Status: DNR/DNI dvt ppx: Coumadin dispo: Discharged to home versus assisted living versus a penitentiary home pending. Need to get an answer from [facility] on ability to continue dialysis Exam Vital Signs (Last) Date Time Temp Pulse Resp B/P Pulse Ox O2 Delivery O2 Flow Rate FiO2 02/21/17 08:29 Supplement Oxygen 02/21/17 08:20 60 20 89 1.00 02/21/17 06:09 36.7 106/67 02/15/17 10:19 35 Exam At 12:15 PM 02/21/17 Gen.: Unresponsive Heart: No heart sounds are auscultated Lungs: No lung sounds are auscultated Vascular: No palpable carotid, femoral, pedal pulses Abdomen: Flat, no wall sounds are auscultated Neurological: Negative for corneal reflex Test 02/14/17 13:20 02/14/17 18:00 02/14/17 18:38 02/15/17 07:16 Troponin T 0.076ug/L (0.0-0.011) Lactic Acid Level 1.9mmol/L (0.4-2.0) Urine Color Dark yellow (YELLOW) Urine Appearance Hazy (CLEAR,HAZY) Urine pH 5.0 (5.0-8.0) Urine Specific [place] 1.015 (1.003-1.035) Urine Protein 300mg/dL (NEG,TRACE) Urine Glucose (UA) Negativemg/dL (NEGATIVE) Urine Ketones Tracemg/dL (NEGATIVE) Urine Occult Blood Moderate (NEGATIVE) Urine Nitrite Negative (NEGATIVE) Urine Bilirubin Negative (NEGATIVE) Urine Urobilinogen Normalmg/dL (NORMAL) Urine Leukocyte Esterase Small (NEGATIVE) Urine RBC 3-10/hpf (0-2) Urine WBC 6-10/hpf (0-5) Urine Epithelial Cells Few/hpf (NONE-MOD) Urine Crystals Amorphous urates (NONE Urine Bacteria Few/hpf (NONE-FEW) Urine Hyaline Casts None/lpf (NONE) Urine Granular Casts None seen (NONE SEEN) Urine Waxy Casts None seen (NONE SEEN) Urine Red Blood Cell Casts None seen (NONE SEEN) Urine White Blood Cell Casts None seen (NONE SEEN) Urine Mucus None seen (None Seen) Urine Trichomonas None seen (NONE SEEN) Urine Yeast None (NONE SEEN) Urinalysis Comment None Urine Culture Reflexed Indicated Vitamin B12 Level 708pg/mL (211-946) Folate 8.2ng/mL (>3.0) Test 02/16/17 03:35 02/18/17 03:45 02/19/17 06:13 02/19/17 18:55 Lidocaine Level 5.7ug/mL (1.5-5.0) Total Creatine Kinase 145U/L (21-232) Neutrophils (%) (Auto) 84.9% (40-74) Lymphocytes (%) (Auto) 5.0% (14-46) Monocytes (%) (Auto) 7.6% (4-12) Eosinophils (%) (Auto) 1.7% (0-5) Basophils (%) (Auto) 0.5% (0-3) Phosphorus Level 4.2mg/dL (2.5-4.9) Magnesium Level 1.9mg/dL (1.6-2.6) Total Bilirubin 1.5mg/dL (0.0-1.2) Aspartate Amino Transf (AST/SGOT) 42U/L (0-50) Alanine Aminotransferase (ALT/SGPT) 12U/L (0-44) Alkaline Phosphatase 134U/L (25-160) Total Protein 6.7g/dL (6.4-8.4) Albumin 3.2g/dL (3.4-5.0) Procalcitonin 0.91ng/mL (0.00-0.08) Urine Legionella pneumophilia Ag Negative (Negative) Test 02/20/17 10:48 02/21/17 06:30 White Blood Count 10.6th/mm3 (3.8-10.1) Red Blood Count 2.63mil/mm3 (4.40-5.80) Hemoglobin 9.8g/dL (13.8-17.2) Hematocrit 31.7% (41.0-50.0) Mean Corpuscular Volume 120.5fL (81-100) Mean Corpuscular Hemoglobin 37.3pg (27.0-35.0) Mean Corpuscular Hemoglobin Concent 30.9% (32.0-37.0) Red Cell Distribution Width 17.3% (12.3-15.4) Platelet Count christian/L (150-400) Prothrombin Time 50.6sec (8.1-12.5) Prothromb Time International Ratio 4.58ratio Sodium Level 136mEq/L (134-144) Potassium Level 4.2mEq/L (3.5-5.2) Chloride Level 94mEq/L (97-108) Carbon Dioxide Level 24mmol/L (18-29) Blood Urea Nitrogen 40mg/dL (8-27) Creatinine 4.74mg/dL (0.76-1.27) Estimat Glomerular Filtration Rate 13mL/min (>59) Glucose Level 81mg/dL (60-99) Calcium Level 7.4mg/dL (8.5-10.1) Discharge Medications Discharge Medications Albuterol Neb Soln (Albuterol Neb Soln) 2.5 Mg/3 Ml Vial.neb 2.5 MG INHALATION BID (Reported) Amiodarone (Amiodarone) 400 Mg Tablet 400 MG PO BID Prescribed by: SHIN LANDEROS MD Amiodarone (Amiodarone) 200 Mg Tablet 200 MG PO BID Prescribed by: SHIN LANDEROS MD Budesonide/Formoterol 160-4.5 mcg Inh (Symbicort 160-4.5 mcg Inh) 120 Puff Inhaler 2 PUFF INHALATION BID (Reported) Calcium Carbonate (Tums) 500 Mg Tab.chew 2,000 MG PO BID (Reported) Carvedilol (Carvedilol) 12.5 Mg Tablet 12.5 MG PO DAILY (Reported) Cinacalcet (Sensipar) 30 Mg Tablet 30 MG PO DAILY (Reported) Doxycycline Hyclate (Doxycycline Hyclate) 100 Mg Tablet 100 MG PO BID Prescribed by: SHIN LANDEROS MD Fluoxetine (Fluoxetine) 10 Mg Tablet 30 MG PO DAILY (Reported) Furosemide (Furosemide) 40 Mg Tablet 40 MG PO DAILY (Reported) Lisinopril (Lisinopril) 10 Mg Tablet 10 MG PO DAILY (Reported) Pravastatin (Pravastatin) 40 Mg Tablet 40 MG PO DAILY (Reported) Ropinirole (Ropinirole) 0.5 Mg Tablet 0.5 MG PO DAILY (Reported) Sevelamer Carbonate (Renvela) 800 Mg Tablet 800 MG PO TID (Reported) Warfarin Sodium (Warfarin Sodium) 2.5 Mg Tablet 2.5 MG PO DAILY Prescribed by: SHIN LANDEROS MD As needed Albuterol Sulfate (Proventil HFA Inhaler) 6.7 Gm Hfa.aer.ad 2 PUFF INH Q4 PRN PRN For Shortness of Breath (Reported) Miscellaneous Medications Fluticasone Propionate (Fluticasone Propionate) 50 Mcg/Actuation [place].susp 15.8 ML NS (Reported) Time spent 35 minutes Bianca Perez DO Feb 21, 2017 12:20
== END 2017-02-21 12:15 | disposition expired | DRG 286 ==
LOC: EDBD 12:55 → SED 12:55 → CCU 15:04 → PCC 02-15 11:20 → CCU 02-15 14:05 → PCC 02-18 15:50 → MPC 02-18 22:00
PROVIDERS: ADMIT Hospitalist; ATTEND Hospitalist
PROC: 5A1945Z Respiratory Ventilation, 24-96 Consecutive Hours (ICD-10-PCS; principal; 2017-02-14)
PROC: 0BH17EZ Insertion of Endotracheal Airway into Trachea, Via Natural or Artificial Opening (ICD-10-PCS; 2017-02-14)
PROC: 5A2204Z Restoration of Cardiac Rhythm, Single (ICD-10-PCS; 2017-02-14)
PROC: 4A033R1 Measurement of Arterial Saturation, Peripheral, Percutaneous Approach (ICD-10-PCS; 2017-02-14)
PROC: 5A1D00Z (ICD-10-PCS; 2017-02-15)
PROC: 4A023N8 Measurement of Cardiac Sampling and Pressure, Bilateral, Percutaneous Approach (ICD-10-PCS; 2017-02-17)
PROC: B2111ZZ Fluoroscopy of Multiple Coronary Arteries using Low Osmolar Contrast (ICD-10-PCS; 2017-02-17)
PROC: 4A1239Z Monitoring of Cardiac Output, Percutaneous Approach (ICD-10-PCS; 2017-02-17)
PROC: 5A1D00Z (ICD-10-PCS; 2017-02-17)
PROC: 5A1D00Z (ICD-10-PCS; 2017-02-19)
DX: I47.2 Ventricular tachycardia (principal); N18.6 End stage renal disease; I42.0 Dilated cardiomyopathy; I50.22 Chronic systolic (congestive) heart failure; I13.2 Hypertensive heart and chronic kidney disease with heart failure and with stage 5 chronic kidney disease, or end stage renal disease; K56.60 Unspecified intestinal obstruction; I46.2 Cardiac arrest due to underlying cardiac condition; J44.9 Chronic obstructive pulmonary disease, unspecified; Z86.711 Personal history of pulmonary embolism; Z79.01 Long term (current) use of anticoagulants; Z95.810 Presence of automatic (implantable) cardiac defibrillator; Z99.2 Dependence on renal dialysis; E83.42 Hypomagnesemia; I48.0 Paroxysmal atrial fibrillation; F17.210 Nicotine dependence, cigarettes, uncomplicated; G25.81 Restless legs syndrome; G47.00 Insomnia, unspecified; Z66 Do not resuscitate; Z51.5 Encounter for palliative care; S81.802D Unspecified open wound, left lower leg, subsequent encounter; S81.801D Unspecified open wound, right lower leg, subsequent encounter; R05 Cough